=== PATIENT | male | born 1955 | race African-American/Black ===

== ENCOUNTER 2017-11-18 20:01 | Inpatient (IN) | payer SELFPAY ==
--- NOTE | 2017-11-18 20:20 | RAD REPORT ---
EXAM DESCRIPTION: CT - Ct Stroke Brain Wo Cont - 11/18/2017 8:12 pm CLINICAL HISTORY: CVA COMPARISON: 01/14/2016 TECHNIQUE: All CT scans are performed using dose optimization technique as appropriate and may inclu de automated exposure control or mA/KV adjustment according to patient size. FINDINGS: No intracranial hemorrhage, hydrocephalus or extra-axial fluid collection.No areas of brai n edema or evidence of midline shift. The paranasal sinuses and mastoids are clear. The calvarium is intact. IMPRESSION: No acute intracranial abnormality. If there is continued clinical concern for CVA, MR i maging of the brain would be recommended. The findings were discussed with CAYETANO Mckeon on 11/18/2017 at 8:15 p.m. by telephone.
[2017-11-18 20:22] LABS: Absolute Lymphocytes (CBC) 3.8 K/uL (0.7-4.9); Absolute Monocytes 1.5 K/uL (0.1-1.3); Absolute Neutrophil 10.4 K/uL (1.8-8.0); Basophils % 1.5 % (0-1.3); Eosinophils % 0.5 % (0-4.4); Hematocrit 41.7 % (39.6-49.0); MCH 28.3 pg (27.0-35.0); MCV 83.1 fL (80-100); MPV 8.3 fL (7.6-11.3); Monocytes % 9.1 % (3.3-12.3); RBC Red Blood Cell Count 5.01 M/uL (4.33-5.43)
[2017-11-18 20:25] LABS: Protime INR 1.03
--- NOTE | 2017-11-18 20:33 | RAD REPORT ---
EXAM DESCRIPTION: RAD - Chest Single View - 11/18/2017 8:25 pm CLINICAL HISTORY: CVA COMPARISON: 04/18/2017 FINDINGS: Portable technique limits examination quality. The lungs are grossly clear. The heart is normal in size. No displaced fractures. IMPRESSION: No acute intrathoracic process suspected.
[2017-11-18 20:34] LABS: Potassium 4.1 mEq/L (3.6-5.0)
[2017-11-18] MEDS ORDERED: NA CHLORIDE 0.9% 1,000 ML ONE (21:01)
[2017-11-18] MEDS ORDERED: INSULIN -REGULAR HUMAN 50 UNIT/0.5 ML ML ONE (21:01)
[2017-11-18 21:21] LABS: Urine Blood 1+ (NEG); Urine Glucose 3+ (NEG); Urine Protein 1+ (NEG); Urine pH 5.5 (5.0-7.0)
--- NOTE | 2017-11-18 21:22 | ER ---
Nurse's Notes [facility] Name: Andre Ward Age: 62 yrs Sex: Male : 1955 Arrival Date: 11/18/2017 Time: 20:05 Bed 18 Private MD: Diagnosis: Hyperglycemia, unspecified;Transient cerebral ischemic attack, unspecified Presentation: 11/18 20:04 Presenting complaint: EMS states: that they were call for possible stroke. At 1400 pt fc started to have left arm weakness and numbness along with left eye blurry vision. He has been having bilateral arm spasms for 2 weeks. On Friday started to have bilateral leg swelling and left upper abd pain. Pt is constantly thirsty and urinating frequently. Pt had been in care home x 7 weeks and was just recently released last week. Is noncompliant with his medications. Transition of care: patient was not received from another setting of care. Onset of symptoms was November 18, 2017 at 14:00. Initial Sepsis Screen: Does the patient meet any 2 criteria? No. Patient's initial sepsis screen is negative. Does the patient have a suspected source of infection? No. Patient's initial sepsis screen is negative. Care prior to arrival: Medication(s) given: ASA, 81 mg, x 4, IV initiated. 20 GA, in the left antecubital area, glucose high. 20:04 Method Of Arrival: EMS: [facility] 20:04 Acuity: KERRY 2 Triage Assessment: 20:44 General: Appears in no apparent distress. Behavior is calm, cooperative. Pain: ak1 Complains of pain in right leg and right arm and left leg and left arm. Historical: - Allergies: 20:22 PENICILLINS; fc 20:22 Lisinopril; fc - Home Meds: 20:22 None [Active]; fc - PMHx: 20:22 CAD; Hypertension; Diabetes - NIDDM; fc - PSHx: 20:22 testicular; fc - Immunization history:: Last tetanus immunization: up to date. - Social history:: Smoking status: Patient uses tobacco products, smokes one pack cigarettes per day. Patient/guardian denies using alcohol, street drugs. Screenin:20 The patient has not been NPO before screening. The patient is currently on the ak1 following diet: regular The patient is alert, able to follow commands. The patient does not exhibit slurred or garbled speech The patient is not exhibiting difficulty speaking. The patient does not exhibit difficulty understanding words. The patient is able to swallow own secretions with no drooling or need for suction. Patient tolerated one teaspoon of water. No drooling, immediate coughing, gurgling, or clearing of the throat was noted. The patient tolerated 90mL of water. No drooling, immediate coughing, gurgling, or clearing of the throat was noted. The patient passed the bedside swallow screening. Oral medications may be given as ordered. Contact Physician for further diet orders. Provider notified of bedside swallow screening results: Moiz OMNTEIRO. 20:23 Abuse screen: Denies threats or abuse. Nutritional screening: No deficits noted. fc Tuberculosis screening: No symptoms or risk factors identified. Fall Risk None identified. Assessment: 21:29 General: Appears in no apparent distress. Behavior is cooperative, anxious. Pain: ak1 Denies pain. Neuro: Level of Consciousness is awake, alert, obeys commands, Oriented to person, place, time, situation, [employer] are weak on right pt with hx TIA in 2006. Moves all extremities. Speech is normal, tongue not midline. Pupils are PERRLA, Intact. Cardiovascular: Reports chest pain. Respiratory: No deficits noted. GI: No signs and/or symptoms were reported involving the gastrointestinal system. : No signs and/or symptoms were reported regarding the genitourinary system. EENT: No signs and/or symptoms were reported regarding the EENT system. Derm: No signs and/or symptoms reported regarding the dermatologic system. Musculoskeletal: No signs and/or symptoms reported regarding the musculoskeletal system. Vital Signs: 21:05 BP 154 / 92; Pulse 95; Resp 18; Temp 98.3(TE); Pulse Ox 97% on R/A; Weight 102.06 kg ak1 (R); Height 6 ft. 1 in. (185.42 cm) (R); Pain 6/10; 22:11 BP 151 / 96; Pulse 92; Resp 18; Pulse Ox 98% on R/A; mt 23:09 BP 146 / 95; Pulse 92; Resp 18; Temp 98.3(TE); Pulse Ox 98% on R/A; Pain 0/10; ak1 21:05 Body Mass Index 29.68 (102.06 kg, 185.42 cm) ak1 NIH Stroke Scale Scores: 20:02 NIHSS Score: 3 jr8 20:04 NIHSS Score: 3 ED Course: 20:04 Patient has correct armband on for positive identification. Bed in low position. Call fc light in reach. Side rails up X2. 20:04 Maintain EMS IV. Dressing intact. Good blood return noted. Site clean \T\ dry. Gauge \T\ fc site: 20 gauge to left a/c. 20:05 Patient arrived in ED. jr8 20:05 Moiz Brush PA is PHCP. jr8 20:05 Zhou Martinez MD is Attending Physician. jr8 20:[address] via stretcher. 2 20:12 CT completed. Patient moved back from CT. 2 20:13 CT Stroke Brain w/o Contrast In Process Unspecified. EDMS 20:16 Rahel Giron, RN is Primary Nurse. ak1 20:21 Triage completed. 20:22 Arm band placed on Patient placed in an exam room, on a stretcher. 20:25 Stroke CXR 1 View In Process Unspecified. EDMS 20:25 X-ray(s) taken. 20:42 Notified Nurse Practitioner and/or Physician Board Layer of a critical lab result(s), 438 ak1 glucose. 21:20 Rogelio Israel MD is Hospitalizing Provider. jr8 21:28 No provider procedures requiring assistance completed. Patient admitted, IV remains in ak1 place. Administered Medications: 21:04 Drug: NS 0.9% 1000 ml Route: IV; Rate: 1000 ml; Site: left antecubital; ak1 23:09 Follow up: IV Status: Completed infusion ak1 21:05 Drug: Insulin Regular Human 10 units {Co-Signature: bs1 (Katerina Apodaca RN).} Route: ak1 IVP; Site: left antecubital; 22:00 Follow up: Response: No adverse reaction ak1 21:42 Not Given (Physician Discretion): Simvastatin 40 mg PO once jr8 22:00 Drug: Aspirin 162 mg Route: PO; ak1 22:11 Follow up: Response: No adverse reaction ak1 22:00 Drug: PlaVIX 75 mg Route: PO; ak1 22:12 Follow up: Response: No adverse reaction ak1 22:00 Drug: foLIC Acid 1 mg Route: PO; ak1 22:12 Follow up: Response: No adverse reaction ak1 22:11 Drug: Atorvastatin 40 mg Route: PO; ak1 22:12 Follow up: Response: No adverse reaction ak1 Point of Care Testing: Blood Glucose: 20:08 Blood Glucose: 362 mg/dL; fc Ranges: Outcome: 21:21 Decision to Hospitalize by Provider. jr8 21:28 Condition: stable ak1 21:28 Instructed on the need for admit. 11/19 00:13 Patient left the ED. ak1 00:16 Admitted to Tele accompanied by tech, family with patient, via wheelchair, room 422, ak1 with chart, Report called to [facility] NIH Stroke Scale - NIH Stroke Score Date: 11/18/2017 Time: 20:02 Total Score = 3 1a. Level of Consciousness (LOC) - 0(Alert) 1b. Level of Consciousness (LOC) (Year \T\ Age) - 0(Both) 1c. LOC Commands (Open \T\ Closes Eyes/Terminal Operations Manager) - 0(Both) 2. Best Gaze (Lateral Gaze Paresis) - 0(Normal) 3. Visual Field Loss - 0(No visual loss) 4. Facial Palsy - 0(Normal) 5a. Left Arm: Motor (10-second hold) - 1(Drift) 5b. Right Arm: Motor (10-second hold) - 0(No drift) 6a. Left Leg: Motor (5-second hold - always test supine) - 1(Drift) 6b. Right Leg: Motor (5-second hold - always test supine) - 0(No drift) 7. Limb Ataxia (finger/nose \T\ heel/palmer - test with eyes open) - 1(Present in one limb) 8. Sensory Loss (pinprick arms/legs/face) - 0(Normal) 9. Best Language: Aphasia (description/naming/reading) - 0(No aphasia) 10. Dysarthria (speech clarity - read or repeat words) - 0(Normal) 11. Extinction and Inattention (visual/tactile/auditory/spatial/personal) - 0(No abnormality) Initials: 8 NIH Stroke Scale - NIH Stroke Score Date: 11/18/2017 Time: 20:04 Total Score = 3 1a. Level of Consciousness (LOC) - 0(Alert) 1b. Level of Consciousness (LOC) (Year \T\ Age) - 0(Both) 1c. LOC Commands (Open \T\ Closes Eyes/Terminal Operations Manager) - 0(Both) 2. Best Gaze (Lateral Gaze Paresis) - 0(Normal) 3. Visual Field Loss - 0(No visual loss) 4. Facial Palsy - 0(Normal) 5a. Left Arm: Motor (10-second hold) - 1(Drift) 5b. Right Arm: Motor (10-second hold) - 0(No drift) 6a. Left Leg: Motor (5-second hold - always test supine) - 1(Drift) 6b. Right Leg: Motor (5-second hold - always test supine) - 0(No drift) 7. Limb Ataxia (finger/nose \T\ heel/palmer - test with eyes open) - 1(Present in one limb) 8. Sensory Loss (pinprick arms/legs/face) - 0(Normal) 9. Best Language: Aphasia (description/naming/reading) - 0(No aphasia) 10. Dysarthria (speech clarity - read or repeat words) - 0(Normal) 11. Extinction and Inattention (visual/tactile/auditory/spatial/personal) - 0(No abnormality) Initials: Signatures: Dispatcher [employer] Denisha Kaur RN RN fc Roszak, Josh, PA PA jr8 Rahel Giron RN RN ak1 Tami Loera [facility] Lo Lester ak Katerina Apodaca RN bs1
--- NOTE | 2017-11-18 21:22 | EDPHYS ---
Physician Documentation [facility] Name: Andre Ward Age: 62 yrs Sex: Male : 1955 Arrival Date: 11/18/2017 Time: 20:05 Bed 18 Private MD: ED Physician Zhou Martinez HPI: 11/18 20:10 This 62 yrs old Black Male presents to ER via Unassigned with complaints of weakness. jr8 20:10 The patient's problem is reported as visual difficulty, blurred vision, weakness, in jr8 the left upper extremity, in the left lower extremity. Onset: The symptoms/episode began/occurred acutely, today, at 14:00. Duration: The episode is continuous. Context: the episode(s) was witnessed, by family, occurred at home, occurred while the patient was at rest. The symptoms are alleviated by nothing. The symptoms are aggravated by nothing. Associated signs and symptoms: The patient has no apparent associated signs or symptoms. Severity of symptoms: At their worst the symptoms were moderate in the emergency department the symptoms are unchanged. Patient's baseline: Neuro: alert and fully oriented, Motor: no deficits, Ambulation: walks without assistance, Speech: normal. The patient has experienced a previous episode. The patient has not recently seen a physician. Patient per EMS is a non compliant diabetic and HTN patient. Has been having frequent thirst and urinary complaints for some time along with headache. Called EMS today after he started to have left sided weakness that began at 2 pm today and has since been progressively worse. Stated that he has had tremor in left arm for the past couple of weeks . Historical: - Allergies: 20:22 PENICILLINS; fc 20:22 Lisinopril; fc - Home Meds: 20:22 None [Active]; fc - PMHx: 20:22 CAD; Hypertension; Diabetes - NIDDM; fc - PSHx: 20:22 testicular; fc - Immunization history:: Last tetanus immunization: up to date. - Social history:: Smoking status: Patient uses tobacco products, smokes one pack cigarettes per day. Patient/guardian denies using alcohol, street drugs. ROS: 20:10 Eyes: Negative for injury, pain, redness, and discharge, ENT: Negative for injury, jr8 pain, and discharge, Neck: Negative for injury, pain, and swelling, Cardiovascular: Negative for chest pain, palpitations, and edema, Respiratory: Negative for shortness of breath, cough, wheezing, and pleuritic chest pain, Abdomen/GI: Negative for abdominal pain, nausea, vomiting, diarrhea, and constipation, Back: Negative for injury and pain, MS/Extremity: Negative for injury and deformity, Skin: Negative for injury, rash, and discoloration. 20:10 Neuro: Positive for headache, visual changes, weakness. 20:10 Endocrine: Positive for polydipsia, polyuria. Exam: 20:02 Head/Face: Normocephalic, atraumatic. Eyes: Pupils equal round and reactive to light, jr8 extra-ocular motions intact. Lids and lashes normal. Conjunctiva and sclera are non-icteric and not injected. Cornea within normal limits. Periorbital areas with no swelling, redness, or edema. ENT: Nares patent. No nasal discharge, no septal abnormalities noted. Tympanic membranes are normal and external auditory canals are clear. Oropharynx with no redness, swelling, or masses, exudates, or evidence of obstruction, uvula midline. Mucous membranes moist. Neck: Trachea midline, no thyromegaly or masses palpated, and no cervical lymphadenopathy. Supple, full range of motion without nuchal rigidity, or vertebral point tenderness. No Meningismus. Cardiovascular: Regular rate and rhythm with a normal S1 and S2. No gallops, murmurs, or rubs. Normal PMI, no JVD. No pulse deficits. Respiratory: Lungs have equal breath sounds bilaterally, clear to auscultation and percussion. No rales, rhonchi or wheezes noted. No increased work of breathing, no retractions or nasal flaring. Abdomen/GI: Soft with mild LUQ tenderness, with normal bowel sounds. No distension or tympany. No guarding or rebound. No evidence of tenderness throughout. Back: No spinal tenderness. No costovertebral tenderness. Full range of motion. Skin: Warm, dry with normal turgor. Normal color with no rashes, no lesions, and no evidence of cellulitis. MS/ Extremity: Pulses equal, no cyanosis. Neurovascular intact. Full, normal range of motion. 20:02 Neuro: Orientation: to person, place, time \T\ situation. Mentation: is normal, Memory: is normal, immediate memory is intact, recent memory is intact, remote memory is intact, Cranial nerves: CN I not tested, CN II- XII are normal as tested, visual [place] are intact. extraocular movements are intact, Facial palsy and sensory deficits are absent. Nystagmus is absent. Speech is clear and appropriate. Tongue deviates to left. Cerebellar function: dysmetria is noted on the left, Motor: moves all fours, strength is 5/5 in the right arm and right leg, strength is 4/5 in the left arm and left leg, Sensation: no obvious gross deficits, Gait: not tested. seizure activity, is not displayed by the patient, Abnormal movements: resting tremor, is located in the left arm. 21:21 Radiologist reports: no acute findings [facility] Vital Signs: 21:05 BP 154 / 92; Pulse 95; Resp 18; Temp 98.3(TE); Pulse Ox 97% on R/A; Weight 102.06 kg ak1 (R); Height 6 ft. 1 in. (185.42 cm) (R); Pain 6/10; 22:11 BP 151 / 96; Pulse 92; Resp 18; Pulse Ox 98% on R/A; mt 23:09 BP 146 / 95; Pulse 92; Resp 18; Temp 98.3(TE); Pulse Ox 98% on R/A; Pain 0/10; ak1 21:05 Body Mass Index 29.68 (102.06 kg, 185.42 cm) ak1 NIH Stroke Scale Scores: 20:02 NIHSS Score: 3 jr8 20:04 NIHSS Score: 3 fc MDM: 20:05 Patient medically screened. [facility] 21:19 Data reviewed: vital signs, nurses notes, lab test result(s), EKG, radiologic studies, [facility] CT scan, plain films, and as a result, I will admit patient. Data interpreted: Pulse oximetry: on room air is 97 %. Interpretation: normal. Counseling: I had a detailed discussion with the patient and/or guardian regarding: the historical points, exam findings, and any diagnostic results supporting the discharge/admit diagnosis, lab results, radiology results, the need for further work-up and treatment in the hospital. Physician consultation: Rogelio Israel MD was called at 21:20, was contacted at 21:20, regarding admission, to the telemetry unit. consult, patient's condition, and will see patient. 21:41 ED course: Patients tongue deviation and weakness seems to have improved upon [facility] reexamination . 11/18 20:06 Order name: Troponin (emerg Dept Use Only); Complete Time: 20:54 [facility] 11/18 20:06 Order name: CPK; Complete Time: 20:54 [facility] 11/18 20:06 Order name: Basic Metabolic Panel; Complete Time: 20:54 [facility] 11/18 20:06 Order name: CBC with Diff; Complete Time: 20:33 [facility] 11/18 20:06 Order name: Protime (+inr); Complete Time: 20:33 [facility] 11/18 20:06 Order name: Ptt, Activated; Complete Time: 20:33 [facility] 11/18 20:06 Order name: Urine Microscopic Only; Complete Time: 21:41 [facility] 11/18 20:54 Order name: Urine Dipstick--Ancillary (enter results); Complete Time: 21:21 [facility] 11/18 21:48 Order name: Hemoglobin A1C [facility] 11/18 21:48 Order name: Lipid Profile [facility] 11/18 21:48 Order name: CBC with Automated Diff [facility] 11/18 21:48 Order name: CBC with Automated Diff [facility] 11/18 21:48 Order name: Comprehensive Metabolic Panel [facility] 11/18 21:48 Order name: Comprehensive Metabolic Panel [facility] 11/18 20:06 Order name: CT Stroke Brain w/o Contrast; Complete Time: 20:33 [facility] 11/18 20:06 Order name: Stroke CXR 1 View; Complete Time: 20:33 [facility] 11/18 20:06 Order name: EKG; Complete Time: 20:06 [facility] 11/18 21:38 Order name: CONS Physician Consult [facility] 11/18 21:48 Order name: CONS Pharmacy Consult [facility] 11/18 21:48 Order name: Carotid Artery Bilateral [facility] 11/18 21:48 Order name: Carotid Artery Bilateral [facility] 11/18 21:48 Order name: Echo with Doppler [facility] 11/18 21:48 Order name: Echo with Doppler [facility] 11/18 20:06 Order name: Accucheck; Complete Time: 20:17 [facility] 11/18 20:06 Order name: Cardiac monitoring; Complete Time: 20:17 [facility] 11/18 20:06 Order name: EKG - Nurse/Tech; Complete Time: 20:22 [facility] 11/18 20:06 Order name: IV Saline Lock; Complete Time: 20:11/18 20:06 Order name: Labs collected and sent; Complete Time: 20:11/18 20:06 Order name: NPO; Complete Time: 20:11/18 20:06 Order name: O2 Per Protocol; Complete Time: 20:11/18 20:06 Order name: O2 Sat Monitoring; Complete Time: 20:11/18 20:06 Order name: Stroke Swallow Screen; Complete Time: 20:11/18 20:06 Order name: Urine Dipstick-Ancillary (obtain specimen); Complete Time: 20:54 11/18 21:48 Order name: Heart Healthy EDMS Administered Medications: 21:04 Drug: NS 0.9% 1000 ml Route: IV; Rate: 1000 ml; Site: left antecubital; ak1 23:09 Follow up: IV Status: Completed infusion ak1 21:05 Drug: Insulin Regular Human 10 units {Co-Signature: bs1 (Katerina Apodaca RN).} Route: ak1 IVP; Site: left antecubital; 22:00 Follow up: Response: No adverse reaction ak1 21:42 Not Given (Physician Discretion): Simvastatin 40 mg PO once 22:00 Drug: Aspirin 162 mg Route: PO; ak1 22:11 Follow up: Response: No adverse reaction ak1 22:00 Drug: PlaVIX 75 mg Route: PO; ak1 22:12 Follow up: Response: No adverse reaction ak1 22:00 Drug: foLIC Acid 1 mg Route: PO; ak1 22:12 Follow up: Response: No adverse reaction ak1 22:11 Drug: Atorvastatin 40 mg Route: PO; ak1 22:12 Follow up: Response: No adverse reaction ak1 Point of Care Testing: Blood Glucose: 20:08 Blood Glucose: 362 mg/dL; fc Ranges: Critical Glucose Levels:Adult <50 mg/dl or >400 mg/dl <40 mg/dl or >180 mg/dl Disposition: 11/19 01:41 Co-signature as Attending Physician, Zhou Martinez MD. pkl Disposition: 11/18/17 21:21 Hospitalization ordered by Rogelio Israel for Inpatient Admission. Preliminary diagnosis are Hyperglycemia, unspecified, Transient cerebral ischemic attack, unspecified. - Bed requested for Telemetry/MedSurg (Inpatient). - Status is Inpatient Admission. ak1 - Condition is Stable. - Problem is new. - Symptoms have improved. UTI on Admission? No NIH Stroke Scale - NIH Stroke Score Date: 11/18/2017 Time: 20:02 Total Score = 3 1a. Level of Consciousness (LOC) - 0(Alert) 1b. Level of Consciousness (LOC) (Year \T\ Age) - 0(Both) 1c. LOC Commands (Open \T\ Closes Eyes/Perioperative Nurse) - 0(Both) 2. Best Gaze (Lateral Gaze Paresis) - 0(Normal) 3. Visual Field Loss - 0(No visual loss) 4. Facial Palsy - 0(Normal) 5a. Left Arm: Motor (10-second hold) - 1(Drift) 5b. Right Arm: Motor (10-second hold) - 0(No drift) 6a. Left Leg: Motor (5-second hold - always test supine) - 1(Drift) 6b. Right Leg: Motor (5-second hold - always test supine) - 0(No drift) 7. Limb Ataxia (finger/nose \T\ heel/palmer - test with eyes open) - 1(Present in one limb) 8. Sensory Loss (pinprick arms/legs/face) - 0(Normal) 9. Best Language: Aphasia (description/naming/reading) - 0(No aphasia) 10. Dysarthria (speech clarity - read or repeat words) - 0(Normal) 11. Extinction and Inattention (visual/tactile/auditory/spatial/personal) - 0(No abnormality) Initials: jr8 NIH Stroke Scale - NIH Stroke Score Date: 11/18/2017 Time: 20:04 Total Score = 3 1a. Level of Consciousness (LOC) - 0(Alert) 1b. Level of Consciousness (LOC) (Year \T\ Age) - 0(Both) 1c. LOC Commands (Open \T\ Closes Eyes/Perioperative Nurse) - 0(Both) 2. Best Gaze (Lateral Gaze Paresis) - 0(Normal) 3. Visual Field Loss - 0(No visual loss) 4. Facial Palsy - 0(Normal) 5a. Left Arm: Motor (10-second hold) - 1(Drift) 5b. Right Arm: Motor (10-second hold) - 0(No drift) 6a. Left Leg: Motor (5-second hold - always test supine) - 1(Drift) 6b. Right Leg: Motor (5-second hold - always test supine) - 0(No drift) 7. Limb Ataxia (finger/nose \T\ heel/palmer - test with eyes open) - 1(Present in one limb) 8. Sensory Loss (pinprick arms/legs/face) - 0(Normal) 9. Best Language: Aphasia (description/naming/reading) - 0(No aphasia) 10. Dysarthria (speech clarity - read or repeat words) - 0(Normal) 11. Extinction and Inattention (visual/tactile/auditory/spatial/personal) - 0(No abnormality) Initials: Signatures: Dispatcher [employer] Jo Ann Augustine2 Zhou Martinez MD MD pkl Chretien, Felicia RN RN fc Moiz Brush PA PA jr8 Rahel Giron RN RN ak1 Katerina Apodaca RN bs1
[2017-11-18 21:38] LABS: Urine Bacteria NONE SEEN /HPF (NONE SEEN); Urine Culture Reflex Order NOT NEEDED; Urine RBC <5 /HPF (NONE SEEN)
[2017-11-18] MEDS ORDERED: FOLIC ACID 1 MG TABLET ONE (21:39)
[2017-11-18] MEDS ORDERED: CLOPIDOGREL 75 MG TABLET ONE (21:39)
[2017-11-18] MEDS ORDERED: ASPIRIN 81 MG CHEWABLE TABLET ONE (21:39)
[2017-11-18] MEDS ORDERED: ONDANSETRON 4 MG/2 ML VIAL IV PRN (21:44)
[2017-11-18] MEDS ORDERED: MORPHINE 2 MG/ML SYR IV PRN (21:44)
[2017-11-18] MEDS ORDERED: ACETAMINOPHEN 500 MG TAB PO PRN (21:44)
[2017-11-19] MEDS: NA CHLORIDE 0.9% 1,000 ML IV SCH ×3 (00:32→14:50)
[2017-11-19] MEDS: Morphine 2 MG/2 ML SYR IV PRN ×2 (01:41→22:39)
[2017-11-19 02:55] LABS: Urine Appearance CLEAR; Urine Bilirubin NEGATIVE (NEG); Urine Blood NEGATIVE (NEG); Urine Color YELLOW; Urine Glucose 3+ (NEG); Urine Protein TRACE (NEG); Urine Specific Gravity >=1.030 (1.005-1.030); Urine Urobilinogen 0.2 mg/dL (0.2-1.0); Urine pH 5.5 (5.0-7.0)
[2017-11-19 03:07] LABS: Urine Microscopic Reflex ORDER UMIC
[2017-11-19 04:33] LABS: Urine Bacteria <20 /HPF (NONE SEEN); Urine Culture Reflex Order NOT NEEDED; Urine RBC NONE SEEN /HPF (NONE SEEN)
[2017-11-19 04:35] LABS: Absolute Lymphocytes (CBC) 4.7 K/uL (0.7-4.9); Absolute Monocytes 1.3 K/uL (0.1-1.3); Absolute Neutrophil 8.3 K/uL (1.8-8.0); Basophils % 0.3 % (0-1.3); MCH 27.9 pg (27.0-35.0); MCV 84.8 fL (80-100); MPV 8.4 fL (7.6-11.3); Monocytes % 9.1 % (3.3-12.3)
[2017-11-19 04:46] LABS: Albumin 3.3 g/dL (3.2-5.5); Bilirubin Total 0.8 mg/dL (0.3-1.2); Potassium 4.2 mEq/L (3.6-5.0); Protein, Total 6.2 g/dL (6.0-8.3)
--- NOTE | 2017-11-19 06:32 | P.HP ---
Certification for Inpatient Patient admitted to: Inpatient With expected LOS: >2 Midnights Patient will require the following post-hospital care: None Practitioner: I am a practitioner with admitting privileges, knowledge of patient current condition, hospital course, and medical plan of care. Services: Services provided to patient in accordance with Admission requirements found in Title 42 Section 412.3 of the Code of Federal Regulations Patient History Date of Service: 11/18/17 Reason for admission: Possible TIA versus CVA History of Present Illness: Patient is a 62-year-old gentleman who has a history of hypertension diabetes. Patient's blood sugars and blood pressure are poorly controlled. Around 15 years ago patient had a stroke. Even after the stroke patient has not become more disciplined on taking his home medication. Patient takes his medications sporadically. Patient's blood sugars and blood pressure were elevated when his symptoms occurred. Patient was brought into the hospital for aggressive IV hydration. Patient was given insulin as well. Will monitor patient very closely and anticipate discharge home once blood pressure and blood sugar stable. Allergies lisinopril Allergy (Verified 11/19/17 03:40) Unknown Penicillins Allergy (Verified 11/19/17 03:40) Unknown Pe Allergy (Uncoded 01/11/16 09:12) Unknown Home Medications: Dextroamphetamine/Amphetamine [Adderall 30 mg Tablet] 30 mg PO DAILY 11/19/17 Metformin ER [Glucophage ER] 500 mg PO BID 11/19/17 - Past Medical/Surgical History Has patient received pneumonia vaccine in the past: No Diabetic: Yes -: HTN -: DM -: Right testicle removed -: Piece of metal removed from right leg - Family History Mother Medical History: Hypertension, Diabetes Notes: Alzeim[place] Father Medical History: Heart disease Notes: heart attack Brother Medical History: Hypertension, Diabetes Sister Medical History: Hypertension, Diabetes - Social History Smoking Status: Current every day smoker Alcohol use: No CD- Drugs: Yes Caffeine use: Yes Place of Residence: Home Review of Systems 10-point ROS is otherwise unremarkable Physical Examination - Vital Signs Temperature: 98 F Blood Pressure: 119/61 Pulse: 70 Respirations: 16 Pulse Ox (%): 95 - Physical Exam General: Alert, In no apparent distress, Oriented x3 HEENT: Atraumatic, PERRLA, Mucous membr. moist/pink, EOMI, Sclerae nonicteric Neck: Supple, 2+ carotid pulse no bruit, No LAD, Without JVD or thyroid abnormality Respiratory: Clear to auscultation bilaterally, Normal air movement Cardiovascular: Regular rate/rhythm, Normal S1 S2, Systolic murmur Gastrointestinal: Normal bowel sounds, Soft and benign, Non-distended, No tenderness Musculoskeletal: No clubbing, No swelling, No tenderness Integumentary: No rashes Neurological: Normal gait, Normal speech, Normal strength at 5/5 x4 extr, Normal tone, Sensation intact, Cranial nerves 3-12 intact, Normal affect Lymphatics: No axilla or inguinal lymphadenopathy - Studies Laboratory Data (last 24 hrs) 11/18/17 20:10: PT 12.2, INR 1.03, APTT 23.7 L 11/18/17 20:10: WBC 16.0 H, Hgb 14.2, Hct 41.7, Plt Count 362 11/18/17 20:10: Sodium 127 L, Potassium 4.1, BUN 18, Creatinine 1.41 H, Glucose 438 H* Assessment & Plan - Problems (Diagnosis) (1) Diabetic hyperosmolar non-ketotic state Current Visit: Yes Status: Acute (2) Type 2 diabetes mellitus Current Visit: Yes Status: Acute (3) Hypertension Current Visit: Yes Status: Acute Qualifiers: Hypertension type: essential hypertension Qualified Code(s): I10 - Essential (primary) hypertension (4) TIA (transient ischemic attack) Current Visit: Yes Status: Acute (5) Paresthesia and pain of left extremity Current Visit: Yes Status: Acute - Plan Plan: 1. MRI of the brain and C-spine 2. Anti-platelet therapy and statin therapy 3. Echo and carotid Doppler 4. Neurology consultation 5. Physical therapy evaluation 6. Bedside swallow study is okay patient will start diet 7. GI and DVT prophylaxis Discharge Plan: Home Plan to discharge in: Greater than 2 days - Advance Directives Does patient have a Living Will: No Does patient have a Durable POA for Healthcare: No - Code Status/Comfort Care Code Status Assessed: Yes Code Status: Full Code Critical Care: No Time Spent Managing PTS Care (In Minutes): 50
--- NOTE | 2017-11-19 06:54 | EKG ---
Test Date: 2017-11-18 Test Time: 20:16:33 Tie Presser: NANETTE MEASUREMENT RESULTS: Intervals: Rate: 100 OK: 146 QRSD: 76 QT: 344 QTc: 443 Wilbraham: P: 65 OK: 146 QRS: 48 T: 18 INTERPRETIVE STATEMENTS: Normal sinus rhythm Normal ECG Compared to ECG 04/18/2017 03:29:30 Atrial premature complex(es) no longer present Left ventricular hypertrophy no longer present Electronically Signed On 11-19-17 06:54:13 CDT by Andrei Victor
[2017-11-19] MEDS ORDERED: D50W 25 GM/50 ML SYRINGE IV PRN (08:06)
[2017-11-19] MEDS ORDERED: GLUCAGON 1 MG/VIAL IM PRN (08:06)
[2017-11-19] MEDS: INSULIN -REGULAR HUMAN 50 UNIT/0.5 ML ML SQ SCH ×4 (08:59→21:00)
[2017-11-19] MEDS: ASPIRIN EC 81 MG TAB PO SCH (09:00)
[2017-11-19] MEDS ORDERED: ATORVASTATIN 40 MG TAB PO SCH ×2 (09:00→21:00)
--- NOTE | 2017-11-19 09:53 | RAD REPORT ---
EXAM DESCRIPTION: LUDMILA Ureña CP - 11/19/2017 8:56 am CLINICAL HISTORY: TIA COMPARISON: None. TECHNIQUE: Real-time sonographic evaluation of both carotid systems was performed. Doppler interroga tion was performed with waveform tracing bilaterally. FINDINGS: Normal high resistance waveforms are noted in both external carotid arteries. The common c arotid arteries and internal carotid arteries show normal low resistance waveforms. No significant plaque formation is seen. Peak systolic and end diastolic velocity values and the ICA/ CCA ratios are in the non-hemodynamically significant range. Antegrade flow seen in both vertebral arteries. Velocity values and ratios were recorded and are retained in the patient's imaging records. IMPRESSION: No significant atherosclerotic changes noted. No evidence of a hemodynamically significant stenosis.
--- NOTE | 2017-11-19 12:32 | ECHO ---
HEIGHT: 6 ft 1 in WEIGHT: 220 lb 0 oz DATE OF STUDY: 11/19/[address]: Rogelio Israel MD 2-DIMENSIONAL: YES M.MODE: YES DOPPLER: YES COLOR FLOW: YES TDS: NO PORTABLE: NO DEFINITY: NO BUBBLE STUDY: NO DIAGNOSIS: TRANSIENT ISCHEMIC ATTACK CARDIAC HISTORY: CATHERIZATION: SURGERY: PROSTHETIC VALVE: PACEMAKER: MEASUREMENTS (cm) DIASTOLIC (NORMALS) SYSTOLIC (NORMALS) IVSd 1.0 (0.6-1.2) LA Diam 3.5 (1.9-4.0) LVEF 51% LVIDd 5.3 (3.5-5.7) LVIDs 3.9 (2.0-3.5) %FS 26% LVPWd 1.0 (0.6-1.2) Ao Diam 3.1 (2.0-3.7) 2 DIMENSIONAL ASSESSMENT: RIGHT ATRIUM: NORMAL LEFT ATRIUM: NORMAL RIGHT VENTRICLE: NORMAL LEFT VENTRICLE: NORMAL TRICUSPID VALVE: NORMAL MITRAL VALVE: NORMAL PULMONIC VALVE: NORMAL AORTIC VALVE: NORMAL PERICARDIAL EFFUSION: NONE AORTIC ROOT: NORMAL LEFT VENTRICULAR WALL MOTION: NORMAL DOPPLER/COLOR FLOW: NORMAL COMMENTS: NORMAL 2D ECHOCARDIOGRAM WITH DOPPLER. TECHNOLOGIST: Alo PIZARRO
[2017-11-19 14:18] LABS: A1c Component 1.14 mg/dL; Hemoglobin A1c 10.3 % (4-6.0)
--- NOTE | 2017-11-19 15:27 | P.PN ---
Subjective Date of Service: 11/19/17 Chief Complaint: Possible TIA versus CVA Pt seen and examined at bedside with RN. Chart reviewed. 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 Currently awaiting ankle bracelet removal for MRI Review of Systems 10-point ROS is otherwise unremarkable Physical Examination - Vital Signs Temperature: 97.3 F Blood Pressure: 133/63 Pulse: 61 Respirations: 18 Pulse Ox (%): 97 - Physical Exam General: Alert, In no apparent distress HEENT: Atraumatic Neck: Supple, JVD not distended Respiratory: Clear to auscultation bilaterally, Normal air movement Cardiovascular: Regular rate/rhythm, Normal S1 S2 Gastrointestinal: Normal bowel sounds, Soft and benign, Non-distended, No tenderness Musculoskeletal: No clubbing Integumentary: No rashes Neurological: Normal speech, Normal tone, Cranial nerves 3-12 intact, Abnormal gait, Abnormal strength Lymphatics: No axilla or inguinal lymphadenopathy - Studies Laboratory Data (last 24 hrs) 11/18/17 20:10: PT 12.2, INR 1.03, APTT 23.7 L 11/18/17 20:10: WBC 16.0 H, Hgb 14.2, Hct 41.7, Plt Count 362 11/18/17 20:10: Sodium 127 L, Potassium 4.1, BUN 18, Creatinine 1.41 H, Glucose 438 H* Medications List Reviewed: Yes Assessment & Plan - Problems (Diagnosis) (1) TIA (transient ischemic attack) Onset Date: 11/19/17 Current Visit: Yes Status: Acute Plan: Left sided Weakness and tingling in UE adn LE -Head CT negative -ECHO and carotid negative as well -On asa and Lipitor -PT consulted. -Awaiting MRI Qualifiers: Transient cerebral ischemia type: unspecified Qualified Code(s): G45.9 - Transient cerebral ischemic attack, unspecified (2) Hypertension Onset Date: 11/19/17 Current Visit: Yes Status: Chronic Qualifiers: Hypertension type: essential hypertension Qualified Code(s): I10 - Essential (primary) hypertension (3) Type 2 diabetes mellitus Onset Date: 11/19/17 Current Visit: Yes Status: Chronic Qualifiers: Diabetes mellitus cogeneration operator insulin use: without senior care use Diabetes mellitus complication status: without complication Qualified Code(s): E11.9 - Type 2 diabetes mellitus without complications Discharge Plan: Home Plan to discharge in: 24 Hours - Code Status/Comfort Care Code Status Assessed: Yes Critical Care: No
[2017-11-19] MEDS: ATORVASTATIN 80 MG TAB PO SCH (20:57)
--- NOTE | 2017-11-19 22:27 | RAD REPORT ---
EXAM DESCRIPTION: MRI - Brain Wo Cont - 11/19/2017 10:18 pm CLINICAL HISTORY: CVA, left-sided weakness COMPARISON: 11/18/2017, 01/14/2016, 01/02/2009 TECHNIQUE: Multi-sequence, multiplanar MR imaging of the brain was performed without contrast. FINDINGS: No intracranial hemorrhage, hydrocephalus or extra-axial fluid collections.Mild generalize d brain atrophy is present with minimal periventricular and deep white matter chronic microvascular i schemic changes. No edema or shift of midline structures. No findings to suspect brain mass. DWI is n egative for acute CVA. Midline structures are normally formed. Mastoid air cells and paranasal sinuses are clear. IMPRESSION: Negative for acute CVA or other acute intracranial abnormality.
--- NOTE | 2017-11-19 22:31 | RAD REPORT ---
EXAM DESCRIPTION: MRI - C Spine Wo Cont CLINICAL HISTORY: Radiculopathy COMPARISON: None. FINDINGS: Cervical vertebral bodies are normal in height and alignment. No suspicious marrow edema or marrow replacing process. No fracture or traumatic subluxation. The craniocervical junction is normal. C2-3 level: No significant findings. C3-4 level: Small posterior osteophytes/disc complex attenuates the anterior subarachnoid space and c ontacts the anterior cord. Central canal is narrowed to 8 mm. Uncovertebral spurring is present bilat erally, greater on the right, narrowing the exit foramina. C4-5 level: Small to moderate disc/ osteophyte complex is present attenuating the anterior subarachno id space and flattening the cord. The central canal is narrowed to 9 mm. Bilateral uncovertebral spur ring is present, greater on the right resulting in significant right-sided exit foraminal narrowing. C5-6 level: Moderate posterior disc/ osteophyte complex is present attenuating the anterior subarachn oid space and contacting the anterior cord. Central canal is narrowed to 9 mm. Both exit foramina ramez ear patent. C6-7 level: Moderate posterior disc/ osteophyte complex is present attenuating the anterior subarachn oid space, contacting and flattening the anterior cord. Central canal is narrowed to 8 mm. Uncoverteb ral spurring moderately narrows both exit foramina. C7-T1 level: No significant findings. Cervical cord is normal in size and signal. IMPRESSION: Moderate multilevel spondylosis of the cervical spine is present spanning C3-C7 as descr ibed above. The most severe levels of degenerative change are at C3-4 and C6-7.
--- NOTE | 2017-11-20 01:32 | CON ---
Date of Consultation: 11/19/2017 Reason For Consultation: Possible stroke. History Of Present Illness: A 62-year-old gentleman with hypertension, diabetes, prior stroke, and m edication noncompliance, who was in his usual state of health until yesterday; abrupt onset of left a rm weakness with some associated jerking and shaking to the arm; became concerned; came to the emerge ncy department; but too far outside the window for IV tPA. There is no clinical evidence of large ve ssel occlusions. Stroke scale in the emergency department was 3. Had some associated blurriness to the left eye. The patient is on parole currently. He has not been taking aspirin on a daily basis e lencho though he has a prior history of stroke. CT scan in the emergency department was personally revi ewed. No acute intracranial abnormality. No atrophy. Not a lot of prominent ischemic change. Ches t x-ray; clear. EKG; sinus rhythm. Since being admitted, he feels like he is a little better. Lopez tids; no stenosis. Consultation was requested. Past Medical History: As alluded to. Medications: The patient has not been taking any medications at home routinely. Allergies: LISINOPRIL AND PENICILLIN. Social History: The patient smokes. Denies alcohol. On parole. Family History: Strokes in his parents. Review of Systems: General: Slight headache. Eyes: Blurry vision. Ears, Nose, and Throat: No dysarthria. Cardiovascular: Hypertension. Pulmonary: Negative. Gastrointestinal: Negative. Genitourinary: Negative. Musculoskeletal: Arthralgias, arm pain. Neurologic: As noted. Psychiatric: Negative. Endocrine: Diabetes. Hematologic: Negative. Physical Examination: Vital Signs: Temperature 97.8, heart rate 61, respiratory rate 16, and blood pressure 113/54. General: He is a pleasant gentleman, lying in bed, in no distress. Heart: Sinus rhythm. Lungs: Clear. Abdomen: Soft. Bowel sounds are present. Neck: No carotid bruits. HEENT/Neurologic: Pupils are equal, round, and reactive. Ocular motion is full without nystagmus. Visual [place] are full to confrontation bilaterally. Facial strength and sensation are normal. Tong ue protrudes evenly. Soft palate elevates symmetrically bilaterally. Extremity strength is full. H e does have some halting giveaway weakness in bilateral upper extremities, but strength is full. The re is a drift in the left upper extremity. Sensation is decreased to vibration and light touch, left versus right. No cortical extinction. Reflexes are trace. Toes are neutral. Cerebellar examinati on demonstrates no ataxia. Pertinent Laboratory Data: Of note, the patient's blood glucose in the emergency department was 438. White count 16. White count is down to 14.7 today. Sodium 127, with the elevated glucose of 132. Currently sugar is down to 198. Creatinine 1.4 to 1.27. He is now on intensive statin therapy. LD L 56, with a cholesterol of 102. Troponins negative. CPK 390. Impression: Transient ischemic attack with possible stroke episode, possibly complicated by a brief focal motor seizure, given the description of the shaking and the highly elevated blood glucose which can cause transient neurological abnormalities like transient ischemic attack or even transient seiz ures. Plan: Continue aspirin and antihypertensives. Check thyroid. Check sedimentation rate. Check B12 level. DVT prophylaxis. Thank you for the consult. We will continue to follow with you. LILLIAM Voice ID: [id number] Report ID: [id number]
[2017-11-20] MEDS: NA CHLORIDE 0.9% 1,000 ML IV SCH ×2 (02:42→14:06)
[2017-11-20] MEDS: Morphine 2 MG/2 ML SYR IV PRN ×2 (02:47→20:41)
[2017-11-20 07:09] LABS: Thyroid Stimulating Hormone 1.24 uIU/mL (0.34-5.60)
[2017-11-20] MEDS: ASPIRIN EC 81 MG TAB PO SCH (08:12)
[2017-11-20] MEDS: INSULIN -REGULAR HUMAN 50 UNIT/0.5 ML ML SQ SCH ×4 (08:12→20:34)
[2017-11-20] MEDS ORDERED: ENOXAPARIN 40 MG/0.4 ML SQ SCH (09:00)
--- NOTE | 2017-11-20 13:03 | P.PN ---
Subjective Date of Service: 11/20/17 Chief Complaint: Possible TIA versus CVA Pt seen and examined at bedside with RN. Chart reviewed. Case D/w Neurology. Currently awaiting EEG results. MRI negative Review of Systems General: As per HPI Physical Examination - Vital Signs Temperature: 97.6 F Blood Pressure: 136/62 Pulse: 68 Respirations: 18 Pulse Ox (%): 100 - Physical Exam General: Alert, In no apparent distress HEENT: Atraumatic, PERRLA, EOMI Neck: Supple, JVD not distended Respiratory: Clear to auscultation bilaterally, Normal air movement Cardiovascular: Regular rate/rhythm, Normal S1 S2 Gastrointestinal: Normal bowel sounds, No tenderness Musculoskeletal: No tenderness Integumentary: No rashes Neurological: Normal speech, Normal tone, Normal affect Lymphatics: No axilla or inguinal lymphadenopathy - Studies Medications List Reviewed: Yes Assessment & Plan - Problems (Diagnosis) (1) TIA (transient ischemic attack) Onset Date: 11/19/17 Current Visit: Yes Status: Acute Plan: Left sided Weakness and tingling in UE adn LE -Head CT negative, MRI negative -ECHO and carotid negative as well -On asa and Lipitor -PT consulted. -Neurology consulted. -Concern for seizures -EEG pending now Qualifiers: Transient cerebral ischemia type: unspecified Qualified Code(s): G45.9 - Transient cerebral ischemic attack, unspecified (2) Hypertension Onset Date: 11/19/17 Current Visit: Yes Status: Chronic Qualifiers: Hypertension type: essential hypertension Qualified Code(s): I10 - Essential (primary) hypertension (3) Type 2 diabetes mellitus Onset Date: 11/19/17 Current Visit: Yes Status: Chronic Qualifiers: Diabetes mellitus penitentiary insulin use: without penitentiary use Diabetes mellitus complication status: without complication Qualified Code(s): E11.9 - Type 2 diabetes mellitus without complications
[2017-11-20] MEDS: ATORVASTATIN 80 MG TAB PO SCH (20:34)
--- NOTE | 2017-11-21 00:42 | PN ---
Date of Progress Note: 11/20/2017 Reason: TIA. Interval History: The patient is stable. No recurrent events. Brain MRI normal. EEG normal. No e vidence for seizure. I think patient can safely be discharged to home on aspirin and a statin. Stat in dose can probably be decreased down to 40 and then perhaps to even 20 over the next 1-2 months. T he patient is advised to check blood pressure. It is normal here now, but it should be monitored mov ing forward. Physical Examination: He is awake, alert, oriented. Pupils reactive. Ocular motions full. Mckeon full. Strength full. He still has some halting giveaway type of weakness, bilateral upper extremity. Sensation decreased distally. Reflexes suppressed. Gait normal. Pertinent Laboratory Data: Sedimentation rate, B12, thyroid normal. EEG and MRI as noted. Impression: Transient ischemic attack. Plan: If stable, would be discharged on aspirin and statin. Thank you for the consult. LILLIAM Voice ID: [id number] Report ID: [id number]
[2017-11-21] MEDS: NA CHLORIDE 0.9% 1,000 ML IV SCH (02:53)
[2017-11-21] MEDS: INSULIN -REGULAR HUMAN 50 UNIT/0.5 ML ML SQ SCH (08:03)
[2017-11-21] MEDS: ASPIRIN EC 81 MG TAB PO SCH (08:03)
--- NOTE | 2017-11-21 13:42 | EEG ---
CHART: [id number] TEST ID#: [id number] DATE OF STUDY: 11/20/2017 THE EEG WAS RECORDED PORTABLE IN THE PATIENT'S ROOM ON A 17 CHANNEL MACHINE. ELECTRODES WERE APPLIED IN THE USUAL MANNER USING THE INTERNATIONAL 10-20 SYSTEM. THE WAKING BACKGROUND RHYTHM IN THIS RECORD CONSISTS OF VERY WELL DEVELOPED AND WELL ORGANIZED WAVES OF 10 HZ., MAXIMAL IN THE POSTERIOR HEAD REGIONS WHICH ATTENUATE NORMALLY WITH EYE OPENING. IN DROWSINESS THE BACKGROUND DROPS TO 9 HZ. THERE ARE NO FOCAL OR LATERALIZING FEATURES. NO EPILEPTIFORM ACTIVITY APPEARS. SLEEP OCCURRED NATURALLY. NORMAL SLEEP PATTERNS ARE PRESENT. HYPERVENTILATION WAS NOT PERFORMED. PHOTIC STIMULATION PRODUCED FAIR DRIVING BILATERALLY. IMPRESSION: NORMAL EEG FOR THE AGE OF THE PATIENT IN [place], DROWSINESS AND SLEEP.
--- NOTE | 2017-11-21 14:23 | P.DS ---
Admission Date: 11/18/17 Discharge Date: 11/21/17 Disposition: ROUTINE DISCHARGE Discharge Condition: GOOD Reason for Admission: Possible TIA versus CVA Consultations: Neurology Procedures: None - Problems (1) TIA (transient ischemic attack) Onset Date: 11/19/17 Status: Acute Qualifiers: Transient cerebral ischemia type: unspecified Qualified Code(s): G45.9 - Transient cerebral ischemic attack, unspecified (2) Hypertension Onset Date: 11/19/17 Status: Chronic Qualifiers: Hypertension type: essential hypertension Qualified Code(s): I10 - Essential (primary) hypertension (3) Type 2 diabetes mellitus Onset Date: 11/19/17 Status: Chronic Qualifiers: Diabetes mellitus terminal worker insulin use: without terminal worker use Diabetes mellitus complication status: without complication Qualified Code(s): E11.9 - Type 2 diabetes mellitus without complications Brief History of Present Illness: Patient is a 62-year-old gentleman who has a history of hypertension diabetes. Patient's blood sugars and blood pressure are poorly controlled. Around 15 years ago patient had a stroke. Even after the stroke patient has not become more disciplined on taking his home medication. Patient takes his medications sporadically. Patient's blood sugars and blood pressure were elevated when his symptoms occurred. Patient was brought into the hospital for aggressive IV hydration. Patient was given insulin as well. Will monitor patient very closely and anticipate discharge home once blood pressure and blood sugar stable. Hospital Course: Overall during the hospital stay patient remained stable The patient was initially admitted to the hospital for possible TIA after having left-sided weakness along with left-sided facial droop. Head CT here in the hospital was negative, MRI here in the hospital was negative as well. Patient was started on aspirin and atorvastatin here in the hospital. Neurology was consulted who recommended the patient get an EEG done. EEG was negative for any acute abnormalities. Patient had an ultrasound of the carotids done which was also negative for any acute abnormality. Patient had an echocardiography done here in the hospital which was within normal limits. Patient worked with physical therapy and then was discharged home under stable condition. Patient was to follow up with his primary care doctor and neurology outpatient about 1-2 weeks. Most likely patient's symptoms were associated with elevated blood sugar levels in this patient was asked to control his diabetes appropriately. The patient was given prescriptions for aspirin and atorvastatin. Vital Signs/Physical Exam: Temp Pulse Resp BP Pulse Ox 98.4 F 63 16 127/64 96 11/21/17 08:00 11/21/17 08:00 11/21/17 08:00 11/21/17 08:00 11/21/17 08:00 General: Alert, In no apparent distress HEENT: Atraumatic, PERRLA, EOMI Neck: Supple, JVD not distended Respiratory: Clear to auscultation bilaterally, Normal air movement Cardiovascular: Regular rate/rhythm, Normal S1 S2 Gastrointestinal: Normal bowel sounds, No tenderness Musculoskeletal: No tenderness Integumentary: No rashes Neurological: Normal speech, Normal tone, Normal affect Lymphatics: No axilla or inguinal lymphadenopathy Laboratory Data at Discharge: WBC 14.7 K/uL (4.3-10.9) H 11/19/17 04:17 Hgb 12.8 g/dL (13.6-17.9) L 11/19/17 04:17 Hct 39.0 % (39.6-49.0) L 11/19/17 04:17 Plt Count 341 K/uL (152-406) 11/19/17 04:17 PT 12.2 SECONDS (9.5-12.5) 11/18/17 20:10 INR 1.03 11/18/17 20:10 APTT 23.7 SECONDS (24.3-36.9) L 11/18/17 20:10 Sodium 132 mEq/L (135-145) L 11/19/17 04:17 Potassium 4.2 mEq/L (3.6-5.0) 11/19/17 04:17 BUN 15 mg/dL (6-20) 11/19/17 04:17 Creatinine 1.27 mg/dL (0.61-1.24) H 11/19/17 04:17 Glucose 392 mg/dL (65-120) H 11/19/17 04:17 Total Bilirubin 0.8 mg/dL (0.3-1.2) 11/19/17 04:17 AST 23 IU/L (10-42) 11/19/17 04:17 ALT 21 IU/L (10-60) 11/19/17 04:17 Alkaline Phosphatase 69 IU/L (42-121) 11/19/17 04:17 Triglycerides Cancelled 11/19/17 06:00 Cholesterol Cancelled 11/19/17 06:00 HDL Cholesterol Cancelled 11/19/17 06:00 Cholesterol/HDL Ratio Cancelled 11/19/17 06:00 Home Medications: Dextroamphetamine/Amphetamine [Adderall 30 mg Tablet] 30 mg PO DAILY 11/19/17 Metformin ER [Glucophage ER] 500 mg PO BID 11/19/17 Aspirin [Aspirin EC 81 MG] 162 mg PO DAILY #30 tablet. 11/20/17 Atorvastatin Calcium [Lipitor] 80 mg PO BEDTIME #30 tab 11/20/17 Glyburide 5 mg PO DAILY #30 tablet 11/20/17 New Medications: Aspirin [Aspirin EC 81 MG] 162 mg PO DAILY #30 tablet. Atorvastatin Calcium [Lipitor] 80 mg PO BEDTIME #30 tab Glyburide 5 mg PO DAILY #30 tablet Patient Discharge Instructions: OK TO DC IV AND DC HOME. FOLLOW-UP WITH PCP IN 1-2 WEEKS. FOLLOW-UP WITH NEUROLOGY IN 1-2 WEEKS. CALL ME AT [phone] IF ANY QUESTIONS REGARDING HOSPITAL STAY Diet: ADA Activity: Fall precautions Followup: Wilton Blair MD [ACTIVE - CAN ADMIT] - 1-2 Weeks (CALL TO SCHEDULE AN APPOINTMENT)
== END 2017-11-21 09:07 | disposition home or self-care (01) | DRG 69 ==
LOC: ER 20:01 → ERHOLD 21:54 → 4TH 23:25
PROVIDERS: ADMIT Hospitalist; ATTEND Family Medicine
DX: G45.9 Transient cerebral ischemic attack, unspecified (principal); E11.00 Type 2 diabetes mellitus with hyperosmolarity without nonketotic hyperglycemic-hyperosmolar coma (NKHHC); R20.2 Paresthesia of skin; R53.1 Weakness; Z91.14 Patient's other noncompliance with medication regimen; Z86.73 Personal history of transient ischemic attack (TIA), and cerebral infarction without residual deficits; Z90.79 Acquired absence of other genital organ(s)
CPT/HCPCS: 36415; 70450; 70551; 71045; 72141; 80048; 80053; 80061; 81003; 81015; 82550; 82607; 82962; 83036; 84443; 84484; 85025; 85610; 85652; 85730; 93005; 93306; 93880; 95819; 96361; 96374; 97163; 99285; J1650; J2270; J7030

== ENCOUNTER 2018-03-17 15:16 | Emergency (ER) | payer SELFPAY ==
[2018-03-17] MEDS ORDERED: ONDANSETRON 4 MG/2 ML VIAL ONE (15:44)
[2018-03-17] MEDS ORDERED: NA CHLORIDE 0.9% 1,000 ML ONE ×3 (15:44→17:36)
[2018-03-17 15:53] LABS: Absolute Lymphocytes (CBC) 2.4 K/uL (0.7-4.9); Absolute Monocytes 0.5 K/uL (0.1-1.3); Absolute Neutrophil 7.8 K/uL (1.8-8.0); Eosinophils % 0.7 % (0-4.4); Hematocrit 45.5 % (39.6-49.0); Lymphocytes % 22.1 % (15.3-44.8); MCH 28.4 pg (27.0-35.0); MPV 9.1 fL (7.6-11.3); Monocytes % 4.4 % (3.3-12.3); RBC Red Blood Cell Count 5.22 M/uL (4.33-5.43)
[2018-03-17 16:14] LABS: Urine Bacteria NONE SEEN /HPF (NONE SEEN); Urine RBC NONE SEEN /HPF (NONE SEEN)
[2018-03-17 16:15] LABS: Urine Culture Reflex Order NOT NEEDED
[2018-03-17 16:18] LABS: ALT/SGPT 20 U/L (12-78); AST/SGOT 12 U/L (15-37); Albumin 2.8 g/dL (3.4-5.0); Alkaline Phosphatase 81 U/L (45-117); BUN Blood Urea Nitrogen 15 mg/dL (7-18); Bicarbonate 28 mmol/L (21-32); Bilirubin Direct 0.2 mg/dL (0-0.2); Bilirubin Total 0.7 mg/dL (0.2-1.0); Lipase 241 U/L (73-393); Potassium 4.5 mmol/L (3.5-5.1); Protein, Total 6.3 g/dL (6.4-8.2); Sodium Level 126 mmol/L (136-145)
[2018-03-17 16:19] LABS: Glucose Level 825 mg/dL (74-106)
[2018-03-17] MEDS ORDERED: INSULIN -REGULAR HUMAN 50 UNIT/0.5 ML ML ONE (16:45)
--- NOTE | 2018-03-17 16:56 | RAD REPORT ---
EXAM DESCRIPTION: CT - Abdomen Pelvis Wo Contrast - 03/17/2018 4:34 pm CLINICAL HISTORY: Abdominal pain. ABD PAIN COMPARISON: Abdomen Pelvis W Contrast dated 01/11/2016 TECHNIQUE: CT imaging of the abdomen and pelvis was performed without contrast. Solid organ, bowel a nd vascular assessment is limited due to lack of IV and oral contrast. All CT scans are performed using dose optimization technique as appropriate and may include automated exposure control or mA/KV adjustment according to patient size. FINDINGS: The lower lung [place] are clear. The liver, spleen, pancreas, adrenal glands and kidneys are within normal limits for a limited non-co ntrast examination. No bowel obstruction, free air, free fluid or abscess. Prominent fecal retention in the colon. The ap pendix is normal. Small fat containing umbilical hernia. The osseous structures are within normal limits. IMPRESSION: No acute intra-abdominal or pelvic findings. Prominent fecal retention seen in the colon . A limited non-contrast examination was performed as detailed.
--- NOTE | 2018-03-17 18:01 | ER ---
Nurse's Notes [facility] Name: Andre Ward Age: 62 yrs Sex: Male : 1955 Arrival Date: 03/17/2018 Time: 15:17 Bed 15 Private MD: Diagnosis: Hyperglycemia, unspecified Presentation: 03/17 15:15 Presenting complaint: EMS states: nausea, polydipsia, polyuria, weight loss of 72 lbs cc3 in 2 weeks. Transition of care: patient was not received from another setting of care. Onset of symptoms was March 03, 2018. Risk Assessment: Do you want to hurt yourself or someone else? Patient reports no desire to harm self or others. Initial Sepsis Screen: Does the patient meet any 2 criteria? No. Patient's initial sepsis screen is negative. Does the patient have a suspected source of infection? No. Patient's initial sepsis screen is negative. Note patient's friend stated that the patient's been having his presented complaints since 6 weeks. 15:15 Method Of Arrival: EMS: [facility] cc3 15:15 Acuity: KERRY 3 cc3 15:15 Care prior to arrival: None. cc3 Triage Assessment: 15:15 General: Appears in no apparent distress. uncomfortable, Behavior is calm, cooperative, cc3 appropriate for age. Pain: Denies pain. 15:15 EENT: No signs and/or symptoms were reported regarding the EENT system. cc3 15:15 Neuro: Level of Consciousness is awake, alert, obeys commands, Oriented to person, cc3 place, time, situation, Appropriate for age. Cardiovascular: Denies chest pain. Respiratory: Airway is patent Respiratory effort is even, unlabored, Respiratory pattern is regular, symmetrical. GI: No signs and/or symptoms were reported involving the gastrointestinal system. : Reports urinary frequency, since 6 weeks. Derm: No signs and/or symptoms reported regarding the dermatologic system. Musculoskeletal: No signs and/or symptoms reported regarding the musculoskeletal system. Historical: - Allergies: 15:15 Lisinopril; cc3 15:15 PENICILLINS; cc3 - PMHx: 15:15 CAD; Diabetes - NIDDM; Hypertension; TIA; cc3 - PSHx: 15:15 None; cc3 - Immunization history:: Adult Immunizations up to date. - Social history:: Smoking status: Patient uses tobacco products, smokes one pack cigarettes per day. - Ebola Screening: : Patient denies travel to an Ebola-affected area in the 21 days before illness onset No symptoms or risks identified at this time. Screenin:15 Abuse screen: Denies threats or abuse. Denies injuries from another. Nutritional cc3 screening: No deficits noted. Tuberculosis screening: No symptoms or risk factors identified. Fall Risk None identified. Assessment: 15:15 General: Appears in no apparent distress. comfortable, Behavior is calm, cooperative, cc3 appropriate for age. Pain: Denies pain. Neuro: Level of Consciousness is awake, alert, obeys commands, Oriented to person, place, time, situation, Appropriate for age. Cardiovascular: Denies chest pain, Capillary refill < 3 seconds is brisk in bilateral. Respiratory: Airway is patent Respiratory effort is even, unlabored, Respiratory pattern is regular, symmetrical. GI: Abdomen is flat, round non-distended. : Reports urinary frequency, since 6 weeks. EENT: No signs and/or symptoms were reported regarding the EENT system. Derm: No signs and/or symptoms reported regarding the dermatologic system. Musculoskeletal: No signs and/or symptoms reported regarding the musculoskeletal system. 16:19 Reassessment: Dr. Herbert notified of critical lab value, glucose 825. ss 16:55 Reassessment: Patient and/or family updated on plan of care and expected duration. Pain cc3 level reassessed. Patient is alert, oriented x 3, equal unlabored respirations, skin warm/dry/pink. family in room;. 17:30 Reassessment: Patient and/or family updated on plan of care and expected duration. Pain hj level reassessed. Patient is alert, oriented x 3, equal unlabored respirations, skin warm/dry/pink. awaiting room placement;. 18:13 Reassessment: in room; repeat BMP sent;. hj 19:20 Reassessment: DC instructions given to patient. Patient agree to follow up with Dr tali Portillo. Patient agree with the POC. Patient had no questions at this moment. Vital Signs: 15:22 BP 136 / 69; Pulse 61; Resp 18; Temp 97.7(O); Pulse Ox 98% on R/A; Weight 72.57 kg; cc3 Height 5 ft. 8 in. (172.72 cm); Pain 0/10; 16:30 BP 138 / 70; Pulse 65; Resp 18; Pulse Ox 100% on R/A; hj 17:30 BP 135 / 66; Pulse 64; Resp 18; Pulse Ox 100% on R/A; hj 18:15 BP 134 / 65; Pulse 63; Resp 18; Pulse Ox 100% on R/A; hj 18:33 BP 135 / 67; Pulse 65; Resp 18; Pulse Ox 100% on R/A; cc3 19:20 BP 132 / 68; Pulse 64; Resp 16; Pulse Ox 98% on R/A; Pain 0/10; ao 15:22 Body Mass Index 24.33 (72.57 kg, 172.72 cm) cc3 ED Course: 15:15 Arm band placed on left wrist. cc3 15:15 Patient has correct armband on for positive identification. Placed in gown. Bed in low cc3 position. Call light in reach. Side rails up X 1. Adult w/ patient. 15:15 Maintain EMS IV. Dressing intact. Good blood return noted. Site clean \T\ dry. Gauge \T\ cc 3 site: 20 left ACV. 15:17 Patient arrived in ED. hj 15:17 Neto Herbert MD is Attending Physician. rn 15:19 Nicolás Yeboah NP is PHCP. pm1 15:21 Nicolás Moctezuma RN is Primary Nurse. hj 15:34 Triage completed. cc3 16:34 Abdomen In Process Unspecified. EDMS 17:20 Yas Portillo MD is Hospitalizing Provider. pm1 17:51 Urine Dipstick--Ancillary (enter results) Sent. ag 19:00 Report given to finance mgr CATERINA Henson. cc3 19:19 No provider procedures requiring assistance completed. IV discontinued, intact, ao bleeding controlled, No redness/swelling at site. Pressure dressing applied. Administered Medications: 15:40 Drug: NS 0.9% 1000 ml Route: IV; Rate: 1000 ml; Site: left antecubital; cc3 16:30 Follow up: IV Status: Completed infusion cc3 15:45 Drug: Zofran 4 mg Route: IVP; Site: left antecubital; cc3 15:49 Follow up: Response: No adverse reaction; Nausea is decreased cc3 16:35 Drug: Insulin Regular Human 10 units {Co-Signature: hj (Nicolás Moctezuma RN).} Route: IVP; cc3 Site: left antecubital; 17:21 Follow up: Response: No adverse reaction; Blood sugar is lowered cc3 16:35 Drug: NS 0.9% 1000 ml Route: IV; Rate: 1000 ml; Site: left antecubital; cc3 18:07 Follow up: IV Status: Completed infusion hj 17:44 Drug: NS 0.9% 1000 ml Route: IV; Rate: 125 ml/hr; Site: left antecubital; hj 18:07 Follow up: IV Status: Infusion continued hj Point of Care Testing: Blood Glucose: 15:22 Blood Glucose: 500 mg/dL; hj 17:22 Blood Glucose: 475 mg/dL; cc3 18:20 Blood Glucose: 350 mg/dL; cc3 15:22 more than 500; hj 18:[address] Portillo. cc3 Ranges: Outcome: 17:22 Decision to Hospitalize by Provider. pm1 18:50 Discharge ordered by MD. pm1 19:20 Discharged to home ambulatory. ao 19:20 Condition: stable 19:20 Discharge instructions given to patient, Demonstrated understanding of instructions, follow-up care, medications, Prescriptions given X 2. 19:23 Patient left the ED. ao Signatures: Dispatcher [employer] EDMS Neto Herbert MD MD rn Smirch, Shelby, RN RN ss Gallardo, Ana ag Joaquin, Henry, RN RN hj Ortiz, Alex, RN RN ao Marinas, Patrick, SPIRAL WINDING MACHINE HELPER SPIRAL WINDING MACHINE HELPER pm1 Faustina Quijano cc3 Nicolás lambert Corrections: (The following items were deleted from the chart) 16:36 15:15 Presenting complaint: EMS states: nausea, polydipsia, polyuria, weight loss of 72 cc3 lbs in 2 weeks. cc3 16:36 15:15 Note patient stated that he's been having his presented complaints since 2 weeks. cc3 cc3 17:53 15:15 Pain: Denies pain. cc3 cc3 17:54 15:15 Note patient's stated that the patient's been having his presented cc3 complaints since 6 weeks. cc3
--- NOTE | 2018-03-17 18:02 | EDPHYS ---
Physician Documentation [facility] Name: Andre Ward Age: 62 yrs Sex: Male : 1955 Arrival Date: 03/17/2018 Time: 15:17 Bed 15 Private MD: ED Physician Neto Herbert HPI: 03/17 15:30 This 62 yrs old Black Male presents to ER via EMS with complaints of High Blood Sugar, pm1 Nausea, weight loss, urinary frequency. 15:30 The patient or guardian reports hyperglycemia, polydipsia, polyphagia, polyuria, weight pm1 loss, that was potentially precipitated by adjusting medication dose, Patient is taking metformin 500 mg PO daily instead of 1000 mg BID in order to stretch out the amount of medications that he has. Treatment prior to arrival includes: EMS NS 500 mL . Onset: The symptoms/episode began/occurred Patient reports for the past two weeks he has felt increased thirst, hunger and excessive urination. Associated signs and symptoms: Pertinent negatives: nausea, polydipsia, polyphagia, polyuria. Current symptoms: In the emergency department the patient's symptoms are unchanged from the initial presentation. The patient has not recently seen a physician, and does not have an established primary care provider, Last physician that he saw was during his hospitalization for a TIA in October this year. Historical: - Allergies: 15:15 Lisinopril; cc3 15:15 PENICILLINS; cc3 - PMHx: 15:15 CAD; Diabetes - NIDDM; Hypertension; TIA; cc3 - PSHx: 15:15 None; cc3 - Immunization history:: Adult Immunizations up to date. - Social history:: Smoking status: Patient uses tobacco products, smokes one pack cigarettes per day. - Ebola Screening: : Patient denies travel to an Ebola-affected area in the 21 days before illness onset No symptoms or risks identified at this time. ROS: 15:30 Eyes: Negative for injury, pain, redness, and discharge, ENT: Negative for injury, pm1 pain, and discharge, Neck: Negative for injury, pain, and swelling, Cardiovascular: Negative for chest pain, palpitations, and edema. 15:30 Respiratory: Negative for shortness of breath, cough, wheezing, and pleuritic chest pain, Abdomen/GI: Negative for abdominal pain, nausea, vomiting, diarrhea, and constipation, Back: Negative for injury and pain. 15:30 MS/Extremity: Negative for injury and deformity, Skin: Negative for injury, rash, and discoloration, Neuro: Negative for headache, weakness, numbness, tingling, and seizure. 15:30 Constitutional: Positive for weight loss, Negative for fatigue, fever, poor PO intake. 15:30 : Negative for burning with urination, difficulty urinating, penile discharge. 15:30 Endocrine: Positive for polydipsia, polyphagia, polyuria, weight loss. Exam: 15:30 Constitutional: This is a well developed, well nourished patient who is awake, alert, pm1 and in no acute distress. Head/Face: Normocephalic, atraumatic. Eyes: Pupils equal round and reactive to light, extra-ocular motions intact. Lids and lashes normal. Conjunctiva and sclera are non-icteric and not injected. Cornea within normal limits. Periorbital areas with no swelling, redness, or edema. ENT: Nares patent. No nasal discharge, no septal abnormalities noted. Tympanic membranes are normal and external auditory canals are clear. Oropharynx with no redness, swelling, or masses, exudates, or evidence of obstruction, uvula midline. Mucous membranes moist. Neck: Trachea midline, no thyromegaly or masses palpated, and no cervical lymphadenopathy. Supple, full range of motion without nuchal rigidity, or vertebral point tenderness. No Meningismus. Chest/axilla: Normal chest wall appearance and motion. Nontender with no deformity. No lesions are appreciated. Cardiovascular: Regular rate and rhythm with a normal S1 and S2. No gallops, murmurs, or rubs. Normal PMI, no JVD. No pulse deficits. Respiratory: Lungs have equal breath sounds bilaterally, clear to auscultation and percussion. No rales, rhonchi or wheezes noted. No increased work of breathing, no retractions or nasal flaring. 15:30 Back: No spinal tenderness. No costovertebral tenderness. Full range of motion. Skin: Warm, dry with normal turgor. Normal color with no rashes, no lesions, and no evidence of cellulitis. MS/ Extremity: Pulses equal, no cyanosis. Neurovascular intact. Full, normal range of motion. 15:30 Abdomen/GI: Inspection: abdomen appears normal, Bowel sounds: normal, Palpation: soft, mild abdominal tenderness, in the right side of suprapubic area, mass, is not appreciated, rebound tenderness, is not appreciated. 15:30 Neuro: Orientation: is normal, Mentation: is normal, Motor: moves all fours. Vital Signs: 15:22 BP 136 / 69; Pulse 61; Resp 18; Temp 97.7(O); Pulse Ox 98% on R/A; Weight 72.57 kg; cc3 Height 5 ft. 8 in. (172.72 cm); Pain 0/10; 16:30 BP 138 / 70; Pulse 65; Resp 18; Pulse Ox 100% on R/A; hj 17:30 BP 135 / 66; Pulse 64; Resp 18; Pulse Ox 100% on R/A; hj 18:15 BP 134 / 65; Pulse 63; Resp 18; Pulse Ox 100% on R/A; hj 18:33 BP 135 / 67; Pulse 65; Resp 18; Pulse Ox 100% on R/A; cc3 19:20 BP 132 / 68; Pulse 64; Resp 16; Pulse Ox 98% on R/A; Pain 0/10; ao 15:22 Body Mass Index 24.33 (72.57 kg, 172.72 cm) cc3 MDM: 15:17 Patient medically screened. rn 17:14 Data reviewed: vital signs. Data interpreted: Pulse oximetry: on room air is 98 %. pm1 Interpretation: normal. Physician consultation: Yas Portillo MD was called at 17:14, was contacted at 17:14, regarding admission, patient's condition, and will see patient in ED, would like further tests performed, Repeat BMP after 2L NS infused.. 18:35 Physician consultation: Yas Portillo MD was contacted at 18:30, regarding patient's pm1 condition, Evaluated patient and patient can be sent home to follow up with PCP. 03/17 15:21 Order name: Basic Metabolic Panel; Complete Time: 16:25 pm1 03/17 15:21 Order name: CBC with Diff; Complete Time: 16:07 pm1 03/17 15:21 Order name: Hepatic Function; Complete Time: 16:25 pm1 03/17 15:21 Order name: Lipase; Complete Time: 16:25 pm1 03/17 15:21 Order name: Urine Microscopic Only; Complete Time: 16:25 pm1 03/17 15:21 Order name: Ketone, Serum; Complete Time: 16:25 pm1 03/17 15:21 Order name: Urine Osmolality; Complete Time: 16:37 pm1 03/17 15:25 Order name: Glucose, Ancillary Testing; Complete Time: 15:41 EDMS 03/17 15:43 Order name: Osmolality, Serum; Complete Time: 16:56 pm1 03/17 15:55 Order name: Urine Dipstick--Ancillary (enter results) 03/17 17:13 Order name: BMP: Repeat after 2L NS infused; Complete Time: 18:49 pm1 03/17 17:26 Order name: Glucose, Ancillary Testing; Complete Time: 17:45 EDMS 03/17 18:07 Order name: BMP hj 03/17 15:21 Order name: IV Saline Lock; Complete Time: 15:22 pm1 03/17 15:21 Order name: Labs collected and sent; Complete Time: 15:49 pm1 03/17 15:21 Order name: Urine Dipstick-Ancillary (obtain specimen); Complete Time: 15:46 pm1 03/17 16:29 Order name: Abdomen ; Complete Time: 17:02 EDMS 03/17 18:22 Order name: Glucose, Ancillary Testing; Complete Time: 18:49 EDMS Administered Medications: 15:40 Drug: NS 0.9% 1000 ml Route: IV; Rate: 1000 ml; Site: left antecubital; cc3 16:30 Follow up: IV Status: Completed infusion cc3 15:45 Drug: Zofran 4 mg Route: IVP; Site: left antecubital; cc3 15:49 Follow up: Response: No adverse reaction; Nausea is decreased cc3 16:35 Drug: Insulin Regular Human 10 units {Co-Signature: fausto (Nicolás Moctezuma RN).} Route: IVP; cc3 Site: left antecubital; 17:21 Follow up: Response: No adverse reaction; Blood sugar is lowered cc3 16:35 Drug: NS 0.9% 1000 ml Route: IV; Rate: 1000 ml; Site: left antecubital; cc3 18:07 Follow up: IV Status: Completed infusion 17:44 Drug: NS 0.9% 1000 ml Route: IV; Rate: 125 ml/hr; Site: left antecubital; hj 18:07 Follow up: IV Status: Infusion continued hj Point of Care Testing: Blood Glucose: 15:22 Blood Glucose: 500 mg/dL; hj 17:22 Blood Glucose: 475 mg/dL; cc3 18:20 Blood Glucose: 350 mg/dL; cc3 15:22 more than 500; hj 18:[address] Portillo. cc3 Ranges: Critical Glucose Levels:Adult <50 mg/dl or >400 mg/dl <40 mg/dl or >180 mg/dl Disposition: 03/18 06:03 Co-signature as Attending Physician, Neto Herbert MD. rn Disposition: 03/17/18 18:50 Discharged to Home. Impression: Hyperglycemia, unspecified. - Condition is Stable. - Discharge Instructions: Hyperglycemia, Blood Glucose Monitoring, Adult. - Prescriptions for Glyburide 5 mg Oral Tablet - take 1 tablet by ORAL route once daily; 20 tablet. Metformin 500 mg Oral Tablet - take 1 tablet by ORAL route every 12 hours for 10 days; 20 tablet. - Medication Reconciliation Form, Thank You Letter, Antibiotic Education, Prescription Opioid Use form. - Follow up: Emergency Department; When: As needed; Reason: Worsening of condition. Follow up: Private Physician; When: 2 - 3 days; Reason: Recheck today's complaints, Continuance of care, Re-evaluation by your physician. - Problem is new. - Symptoms have improved. Signatures: Dispatcher [employer] EDOK Neto Herbert MD MD rn Joaquin, Henry, RN RN Sixto Lan RN RN ao Marinas, Patrick, WIRE TECHNICIAN WIRE TECHNICIAN pm1 Papitoney Faustina cc3 Nicolás Moctezuma RN Corrections: (The following items were deleted from the chart) 03/17 16:29 15:45 Abdomen Pelvis W Con+CT.RAD.BRZ ordered. [facility] EDOK 18:49 17:22 Hospitalization Ordered by Yas Portillo MD for Observation. Preliminary pm1 diagnosis is Hyperglycemia, unspecified. Bed requested for Telemetry/MedSurg (observation). Status is Observation. Condition is Stable. Problem is new. Symptoms have improved. UTI on Admission? No. pm1 19:23 18:50 03/17/2018 18:50 Discharged to Home. Impression: Hyperglycemia, unspecified. ao Condition is Stable. Forms are Medication Reconciliation Form, Thank You Letter, Antibiotic Education, Prescription Opioid Use. Follow up: Emergency Department; When: As needed; Reason: Worsening of condition. Follow up: Private Physician; When: 2 - 3 days; Reason: Recheck today's complaints, Continuance of care, Re-evaluation by your physician. Problem is new. Symptoms have improved. pm1
[2018-03-17 18:42] LABS: Potassium 4.1 mmol/L (3.5-5.1)
[2018-03-17 20:11] LABS: Urine Blood TRACE (NEG); Urine Glucose 3+ (NEG); Urine Protein NEGATIVE (NEG); Urine Specific Gravity <1.005 (1.005-1.030); Urine pH 5.5 (5.0-7.0)
== END 2018-03-17 19:23 | disposition home or self-care (01) ==
LOC: ER 15:16
DX: E11.65 Type 2 diabetes mellitus with hyperglycemia (principal); I10 Essential (primary) hypertension; F17.210 Nicotine dependence, cigarettes, uncomplicated; Z88.0 Allergy status to penicillin; Z88.8 Allergy status to other drugs, medicaments and biological substances
CPT/HCPCS: 36415; 74176; 80048; 80076; 81003; 81015; 82010; 82962; 83690; 83930; 83935; 85025; 96361; 96374; 96375; 99284; J2405; J7030

== ENCOUNTER 2021-07-12 21:01 | Inpatient (IN) | payer OTHER, SELFPAY ==
--- OUTSIDE RECORDS SUMMARY | 2021-07-12 21:05 | XMS REPORT | Clinical Summary ---
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 Specimen Blood Performing Organization Address City/[facility]/ZIP Code Phon e Number [facility] CANCER Unless otherwise noted, [address] all lab tests performed by: Division of Pathology and Laboratory Medicine Ernesto Chanel (ABNORMAL) L[facility] (08/14/2020 1:23 PM APPEALS AND GENERALIST CLERK) LDH 226 (H)Comment: 135 - 225 U/L [facility] Results greater than [facility] 1651 U/L may not be reliable due to matrix effect with extended dilution as it exceeds the shipping support s recommended limit. Caution should be exercised when interpreting such values and done in conjunction with clinical context. Specimen Blood Performing Organization Address City/State/ZIP Code Phon e Number [facility] CANCER Unless otherwise noted, [address] all lab tests performed by: Division of Pathology and Laboratory Medicine Ernesto Chanel Albumin Level (08/14/2020 1:23 PM APPEALS AND GENERALIST CLERK) Pathologist Sig nature Albumin Lvl 3.7 3.5 - 5.2 gm/dL [facility] CANCER [address] Specimen Blood Performing Organization Address City/State/ZIP Code Phon e Number [facility] CANCER Unless otherwise noted, [address] all lab tests performed by: Division of Pathology and Laboratory Medicine Ernesto Chanel after 07/12/2020 Advance Directives Code Status Date Activated Date Inactivated Comments Full Code 08/14/2020 9:14 PM 08/15/2020 2:32 PM
--- OUTSIDE RECORDS SUMMARY | 2021-07-12 21:07 | XMS REPORT | Continuity of Care Document ---
:1955 Author Organization [facility] t Address [address] [place] [address] Care Team Providers Name Role Phone Black COOPER Primary Care Physician Unavailable Tony CAMACHO Attending Clinician Unavailable Evangelist CASTRO Attending Clinician Unavailable Quinn KAUFFMAN Attending Clinician Unavailable BEKAH GUTIERREZ Attending Clinician Unavailable TATA ARCHULETA Attending Clinician Unavailable ESE Attending Clinician Unavailable CAROL Attending Clinician Unavailable Black COOPER Attending Clinician Unavailable TAMERA Attending Clinician Unavailable Whitney RUCKER Attending Clinician Unavailable FRANC Attending Clinician Unavailable Rodrigo FONSECA Attending Clinician Unavailable Cindy SHEN Attending Clinician Unavailable GARETT Attending Clinician Unavailable Natividad MANJARREZ Attending Clinician Unavailable Natividad KIM Attending Clinician Unavailable Keely MUNSON Attending Clinician Unavailable Maynor RANGEL Attending Clinician Unavailable SAMM Attending Clinician Unavailable ELENA Attending Clinician Unavailable Susu BORJA Attending Clinician Unavailable Whitney YAO Attending Clinician Unavailable Clary OSCAR Attending Clinician Unavailable Natividad GATES Attending Clinician Unavailable JENELLE Attending Clinician Unavailable Black MATTHEW Attending Clinician Unavailable MANSI Attending Clinician Unavailable JAZLYN Attending Clinician Unavailable Whitney ANAYA Attending Clinician Unavailable Jocy ALVARENGA Attending Clinician Unavailable Keely NORTON Attending Clinician Unavailable CONG Attending Clinician Unavailable Evangelist CASTRO Attending Clinician Unavailable Whitney FERREIRA Attending Clinician Unavailable Susu GERMAN Attending Clinician Unavailable Keely LEONARDO Attending Clinician Unavailable Whitney ANAYA Attending Clinician Unavailable Black TAYLOR Attending Clinician Unavailable Cindy GIRON Attending Clinician Unavailable GEREMIAS Attending Clinician Unavailable Whitney FERREIRA Attending Clinician Unavailable Natividad BLAKE Attending Clinician Unavailable Mat Attending Clinician Unavailable DIANA Attending Clinician Unavailable Armando KNIGHT Attending Clinician Unavailable HUMBLE Attending Clinician Unavailable Yseenia Fritz MD Attending Clinician Humble KURTZ Attending Clinician FRANKLYN Admitting Clinician Unavailable ARMANDO Admitting Clinician Unavailable Mat Admitting Clinician Unavailable HUMBLE Admitting Clinician Unavailable Payers Payer Name Policy Type Policy Number Effective Date Expiration Date Keely corcoran MEDICARE PART A [id number] 2019 ONLY 00:00:00 MEDICARE PART A [id number] 2019 2019 00:00:00 00:00:00 Problems Condition Condition Condition Status Onset Resolution Last Treating Co mments Source Name Details Category Date Date Treatment Clinician Date Abdominal Abdominal Disease Active pain pain 08-14 Anderso 00:00: n 00 Dyspnea Dyspnea Disease Active 2020-0 18 Anderso 00:00: n 00 Nausea and Nausea and Disease Active 2020-0 M D vomiting vomiting 08-14 David o 00:00: n 00 Cough Cough Disease Active 2020-0 18 Anderso 00:00: n 00 Lung Lung Disease Active 2020-0 nodule nodule 08-14 Anderso 00:00: n 00 Back pain Back pain Disease Active 2020-0 18 Anderso 00:00: n 00 Hypertensi Hypertensi Disease Active 2020-0 M D on on 08-14 Anderso 00:00: n 00 Type 2 Type 2 Disease Active 2020-0 diabetes diabetes 08-14 David o mellitus mellitus 00:00: n 00 Allergies, Adverse Reactions, Alerts This patient has no known allergies or adverse reactions. Social History Social Habit Start Date Stop Date Quantity Comments Source Tobacco use and 2020-08-14 2020-08-14 User of smokeless Darion exposure 00:00:00 00:00:00 tobacco Sex [birth year] MD Hernandez on 00:00:00 00:00:00 Smoking Status Start Date Stop Date Source Smokes tobacco daily 2020-08-14 00:00:00 MD Lester rsallen Medications Ordered Filled Start Stop Current Ordering Indication Dosage Frequency Signature Comments Components Source Medication Medication Date Date Medication? Clinician (SIG) Name Name insulin Yes type 2 13U Inject 13 aspart 08-15 diabetes Units Anderso U-100 12:27: mellitus under the n (NOVOLOG) 36 skin twice 100 unit/mL daily. injection Before meals dilTIAZem Yes Take by (CARDIZEM 08-15 mouth. Anderso CD) 240 mg 12:27: n 24 hr 36 capsule aspirin 81 Yes 81mg Take 81 mg M D mg EC 08-15 by mouth. Anderso tablet 12:27: n 36 metoclopram Yes Nausea and 10mg Take 1 MD negrito 08-15 vomiting tablet (10 Timi so (REGLAN) 10 00:00: mg) by n mg tablet 00 mouth every 6 (six) hours. morphine Yes Neoplasm 15mg Take 1 MD (MS CONTIN) 08-15 related tablet (15 Anderso 15 mg ER 00:00: pain mg) by n tablet 00 (acute) mouth (chronic) every 12 (twelve) hours. morphine Yes Neoplasm 7.5mg Take a MD (MSIR) 15 08-15 related half Anderso mg IR 00:00: pain tablet n tablet 00 (acute) (7.5 mg) (chronic) by mouth every 4 (four) hours as needed (pain and shortness of breath). Vital Signs Vital Name Observation Time Observation Value Comments Source HEIGHT 2020-08-14 21:37:46 177.8 cm WEIGHT 2020-08-14 21:37:46 99.9 kg HEIGHT 2020-08-14 21:37:46 177.8 cm WEIGHT 2020-08-14 21:37:46 99.9 kg Systolic blood pressure 2020-08-15 17:29:29 138 mm[Hg] MD [place] Diastolic blood pressure 2020-08-15 17:29:29 77 mm[Hg] MD [place] Heart rate 2020-08-15 17:29:29 62 /min MD Capellan son Body temperature 2020-08-15 17:29:29 36.61 Rocio MD Clary castillo Respiratory rate 2020-08-15 17:29:29 18 /min MD Clary castillo Oxygen saturation in 2020-08-15 17:29:29 96 /min MD [place] Arterial blood by Pulse oximetry Body height 2020-08-15 03:37:46 177.8 cm MD Timi gomez Body weight 2020-08-15 03:37:46 99.9 kg MD Timi gomez BMI 2020-08-15 03:37:46 31.60 kg/m2 MD Timi gomez Procedures Procedure Date / Time Performed Performing Clinician [facility] e POC GLUCOSE SCREEN 2020-08-15 16:38:00 Lina Kate MD rson POC GLUCOSE SCREEN 2020-08-15 14:10:00 Lina Kate MD rson AMYLASE LEVEL 2020-08-15 07:59:00 Pillo Kevin MD LIPASE LEVEL 2020-08-15 07:59:00 Pillo Kevin MD MAGNESIUM LEVEL 2020-08-15 07:59:00 Pillo Kevin MD PHOSPHORUS LEVEL 2020-08-15 07:59:00 Pillo Kevin MD COMPLETE BLOOD COUNT W/ 2020-08-15 07:59:00 Pillo Kevin MDrsallen DIFFERENTIAL BASIC METABOLIC PANEL, CALCIUM 2020-08-15 07:59:00 Pillo Kevin MD TOTAL GLUCOSE LEVEL 2020-08-15 07:59:00 Pillo Kevin MD BLOOD UREA NITROGEN 2020-08-15 07:59:00 Pillo Kevin MD ELECTROLYTE PANEL 2020-08-15 07:59:00 Pillo Kevin MD SERUM CREATININE 2020-08-15 07:59:00 Pillo Kevin MD .GLOMERULAR FILTRATION RATE 2020-08-15 07:59:00 Pillo Kevin MD CALCIUM LEVEL TOTAL 2020-08-15 07:59:00 Pillo Kevin MD Results CBC 2020-08-15 07:59:00 Pillo Kevin MD MANUAL DIFFERENTIAL 2020-08-15 07:59:00 Pillo Kevin MD MRI CERVICAL THORACIC LUMBAR 2020-08-15 06:30:00 Pillo Kevin MD SPINE W WO CONTRAST XR FEMUR 2 VW RIGHT 2020-08-15 04:31:07 Pillo Kevin MD TROPONIN T 2020-08-15 03:50:00 Pillo Kevin MD POC GLUCOSE SCREEN 2020-08-15 03:35:00 Lina Kate MD Trevon rsallen GENERAL LABORATORY ADD ON TEST 2020-08-15 03:03:[address] CHEST PULMONARY EMBOLISM W 2020-08-15 00:27:52 Merlene Hudson MD CONTRAST CT ABDOMEN PELVIS W CONTRAST 2020-08-15 00:27:52 Merlene Hudson MD EKG, 12-LEAD (PORTABLE) 2020-08-15 00:00:00 Merlene Hudson MD URINALYSIS WITH MICROSCOPIC IF 2020-08-14 20:47:00 Isaac Hudson MD INDICATED URINALYSIS MICROSCOPIC 2020-08-14 20:47:00 Mikie Fritz MD URINE CULTURE 2020-08-14 20:47:00 Merlene Hudson MD POC VENOUS BLOOD GAS + LACTATE 2020-08-14 19:49:00 Eduarda Fritz MD AMYLASE LEVEL 2020-08-14 19:43:00 Merlene Hudson MD LIPASE LEVEL 2020-08-14 19:43:00 Merlene Hudson MD RESPIRATORY VIRAL PANEL + 2020-08-14 19:35:00 Leela Guadalupe MD COVID-19, NASOPHARYNGEAL SWAB SERUM CREATININE 2020-08-14 19:23:00 Mikie Fritz MD And erson .GLOMERULAR FILTRATION RATE 2020-08-14 19:23:00 Baltazar Fritz MD CALCIUM LEVEL TOTAL 2020-08-14 19:23:00 Mikie Fritz MD ALBUMIN LEVEL 2020-08-14 19:23:00 Mikie Fritz MD Trevon rson ALKALINE PHOSPHATASE 2020-08-14 19:23:00 Mikie Fritz MD ALANINE AMINOTRANSFERASE 2020-08-14 19:23:00 Mikie Fritz MD ASPARTATE AMINOTRANSFERASE 2020-08-14 19:23:00 Mikie Fritz MD TOTAL PROTEIN 2020-08-14 19:23:00 Mikie Fritz MD Trevon rson FRACTIONATED BILIRUBIN 2020-08-14 19:23:00 Mikie Fritz MD NT PRO BNP 2020-08-14 19:23:00 Mikie Fritz MD Trevon rson BLOODCULTURE 2020-08-14 19:23:00 Merlene Hudson MD COMPLETE BLOOD COUNT W/ 2020-08-14 19:23:00 Merlene Hudson MD DIFFERENTIAL COMPREHENSIVE METABOLIC PANEL 2020-08-14 19:23:00 Merlene Hudson MD MAGNESIUM LEVEL 2020-08-14 19:23:00 Merlene Hudson MD PHOSPHORUS LEVEL 2020-08-14 19:23:00 Merlene Hudson MD Andbravoo n LACTATE DEHYDROGENASE 2020-08-14 19:23:00 Merlene Hudson MDson CARDIAC PANEL 2020-08-14 19:23:00 Merlene Hudson MD D DIMER 2020-08-14 19:23:00 Mrelene Hudson MD Results CBC 2020-08-14 19:23:00 Mikie Fritz MD Trevon rsallen MANUAL DIFFERENTIAL 2020-08-14 19:23:00 Mikie Fritz MD GLUCOSE LEVEL 2020-08-14 19:23:00 Mikie Fritz MD Trevon rson BLOOD UREA NITROGEN 2020-08-14 19:23:00 Mikie Fritz MD ELECTROLYTE PANEL 2020-08-14 19:23:00 Mikie Fritz MD Plan of Care Planned Activity Planned Date Details Comments Source Future Scheduled Test 1960 00:00:00 COVID-19 Vaccination MD [place] (1) [code = COVID-19 Vaccination (1)] Encounters Start End Encounter Admission Attending Care Care Encounter Source Date/Time Date/Time Type Type Clinicians Facility Department ID 2021-04-19 Inpatient [facility] [id number] [place] 21:23:34 Health 2021-04-19 Inpatient [facility] [id number] [place] 00:00:00 [facility] 2021-04-19 Inpatient [facility] [id number] [facility] [place] 00:00:00 [facility] 2021-04-18 Inpatient DOUG, [facility] [id number] [place] 22:38:40 2021-04-17 Inpatient 1 DOUG, [facility] [id number] [place] 21:54:00 2018-04-27 Inpatient E [facility] [id number] [facility] W 15:11:00 2021-08-10 2021-08-10 [facility] [id number] [place] 00:00:00 00:00:00 2021-08-03 2021-08-03 [facility] [id number] [place] 00:00:00 00:00:00 [facility] 2021-07-26 2021-07-26 Outpatient [facility] [id number] [place] 00:00:00 00:00:00 [facility] 2021-07-12 2021-07-12 Outpatient DU KAUFFMAN [facility] [id number] [place] 00:00:00 00:00:00 [facility] 2021-07-03 2021-07-03 Outpatient [facility] [id number] [place] 00:00:00 00:00:00 [facility] 2021-06-29 2021-06-29 [facility] [id number] [place] 00:00:00 00:00:00 [facility] 2021-06-28 2021-06-28 [facility] [id number] [place] 00:00:00 00:00:00 [facility] 2021-06-20 2021-06-20 [facility] [id number] [place] 00:00:00 00:00:00 2021-06-11 2021-06-19 [id number] [place] 06:24:00 17:56:00 [facility] 2021-06-15 2021-06-15 [facility] [id number] [place] 00:00:00 00:00:00 [facility] 2021-06-14 2021-06-14 Outpatient [facility] [id number] [place] 00:00:00 00:00:00 [facility] 2021-06-132021-06-13 Outpatient [facility] [id number] [place] 10:28:38 10:28:38 Health 2021-06-13 2021-06-13 Outpatient GEREMIAS, [facility] [id number] [place] 09:56:27 09:56:27 [facility] 2021-06-12 2021-06-12 Outpatient MULLIGAN, [facility] [id number] [place] 06:57:35 07:53:44 [facility] 2021-06-12 2021-06-12 Outpatient MULLIGAN, [facility] [id number] [place] 06:16:14 06:16:14 [facility] 2021-06-11 2021-06-11 Emergency SERGOT, [facility] [id number] [place] 07:54:12 08:59:23 [facility] 2021-06-11 2021-06-11 Emergency SERGOT, [facility] [id number] [place] 06:41:17 07:04:33 [facility] 2021-06-11 2021-06-11 Emergency SERGOT, [facility] [id number] [place] 06:37:00 06:47:57 [facility] 2021-06-11 2021-06-11 Outpatient 1 MULLIGAN, [facility] [id number] [place] 06:24:00 06:24:00 [facility] 2021-06-08 2021-06-08 [facility] [id number] [place] 09:29:43 10:18:25 [facility] 2021-06-07 2021-06-07 Outpatient ALLISON, [facility] [id number] [place] 08:59:53 23:59:00 [facility] 2021-06-06 2021-06-06 [facility] [id number] [address] [place] [address] 09:40:31 23:59:00 [facility] 2021-06-06 2021-06-06 [facility] [id number] [place] 09:09:50 09:39:00 [facility] 2021-06-05 2021-06-05 Outpatient ALLISON, [facility] [id number] [place] 09:08:00 23:59:00 [facility] 2021-06-05 2021-06-05 Outpatient TAMERA, [facility] [id number] [place] 00:00:00 00[facility]00:[facility] 2021-06-04 2021-06-04 Outpatient ALLISON, [facility] [id number] [place] 09:27:36 23:59:00 [facility] 2021-06-01 2021-06-01 Outpatient ALLISON, [facility] [id number] [place] 08:36:55 23:59:00 [facility] 2021-06-01 2021-06-01 Outpatient [facility] [id number] [place] 06:50:10 13:25:12 Health 2021-05-31 2021-05-31 Outpatient ALLISON, [facility] [id number] [place] 10:04:04 23:59:00 [facility] 2021-05-30 2021-05-30 Outpatient ALLISON, [facility] [id number] [place] 11:18:20 23:59:00 [facility] 2021-05-30 2021-05-30 Outpatient ALLISON, [facility] [id number] [place] 10:29:50 10:59:00 [facility] 2021-05-29 2021-05-29 Outpatient BROOKLYNTTI, [facility] [id number] [place] 10:33:21 11:35:38 [facility] 2021-05-29 2021-05-29 Outpatient [facility] [id number] [place] 00:00:00 00:00:00 Health 2021-05-28 2021-05-28 [facility] [id number] [place] 11:23:25 23:59:00 [facility] 2021-05-28 2021-05-28 [facility] [id number] [place] 11:13:31 10:59:00 [facility] 2021-05-25 2021-05-25 [facility] [id number] [place] 10:20:04 23:59:00 [facility] 2021-05-25 2021-05-25 [facility] [id number] [place] 10:30:45 10:30:45 [facility] 2021-05-24 2021-05-24 [facility] [id number] [place] 09:25:30 23:59:00 [facility] 2021-05-23 2021-05-23 Outpatient COVERDALE, [facility] [id number] [place] 00:00:00 00:00:00 [facility] 2021-05-18 2021-05-18 Outpatient CASTRO, [facility] [id number] [place] 00:00:00 00:00:00 [facility] 2021-05-16 2021-05-16 Outpatient ALLISON, [facility] [id number] [place] 08:56:57 23:59:00 [facility] 2021-05-11 2021-05-11 Outpatient DOUG, [facility] [id number] [place] 12:00:42 12:54:17 2021-05-09 2021-05-09 Outpatient ALLISON, [facility] [id number] [place] 08:57:57 23:59:00 [facility] 2021-05-09 2021-05-09 Outpatient ZARIA BRUNER [facility] [id number] [place] 00:00:00 00:00:00 [facility] 2021-05-08 2021-05-08 Outpatient PHILIP, [facility] [id number] [place] 12:48:15 13:26:14 [facility] 2021-05-01 2021-05-01 [facility] [id number] [place] 11:23:18 11:27:06 [facility] 2021-05-01 2021-05-01 Outpatient MATT, [facility] [id number] [place] 10:22:47 11:16:37 [facility] 2021-05-01 2021-05-01 [facility] [id number] [place] 00:00:00 00:00:00 [facility] 2021-04-27 2021-04-27 Outpatient CASTRO, [facility] [id number] [place] 12:02:04 13:43:23 [facility] 2021-04-27 2021-04-27 Outpatient [facility] [id number] [place] 00:00:00 00:00:00 [facility] 2021-04-17 2021-04-22 Inpatient DOUG, [facility] [id number] [place] 21:54:00 15:15:00 2021-04-17 2021-04-17 Emergency [facility] [id number] [place] 17:09:00 20:28:00 [facility] 2021-04-17 2021-04-17 Emergency FONSECA, [facility] [id number] [place] 17:09:00 20:28:00 [facility] 2021-04-17 2021-04-17 Emergency AC, [facility] [id number] [place] 18:06:34 18:06:34 [facility] 2021-04-17 2021-04-17 Emergency GARETT, [facility] [id number] [place] 14:00:00 14:30:00 [facility] 2021-04-13 2021-04-13 Outpatient CASTRO, [facility] [id number] [place] 00:00:00 00:00:00 [facility] 2021-04-13 2021-04-13 Outpatient [facility] [id number] [place] 00:00:00 00:00:00 [facility] 2021-04-10 2021-04-10 Outpatient PHILIP, [facility] [id number] [place] 00:00:00 00:00:00 [facility] 2021-04-06 2021-04-06 Outpatient ALLISON, [facility] [id number] [place] 07:43:21 23:59:00 [facility] 2021-04-05 2021-04-05 Outpatient MATT, [facility] [id number] [place] 11:05:18 12:47:35 [facility] 2021-04-05 2021-04-05 Outpatient MATT, [facility] [id number] [place] 00:00:00 00:00:00 [facility] 2021-04-03 2021-04-03 Outpatient LOKI, [facility] [id number] [place] 11:38:07 15:12:20 [facility] 2021-04-03 2021-04-03 Outpatient JUDY, [facility] [id number] [place] 00:00:00 [facility] 2021-03-27 Outpatient JUDY, [facility] [id number] [place] 00:00:00 [facility]00:[facility] 2021-03-13 2021-03-13 Outpatient TAMERA, [facility] [id number] [place] 12:54:47 13:17:[facility] 2021-03-12 Outpatient [facility] [id number] [place] 08:38:54 09:54:08 [facility] 2021-03-08 2021-03-08 [facility] [id number] [place] 10:57:16 23:59:00 [facility] 2021-03-08 2021-03-08 Outpatient [facility] [id number] [place] 00:00:00 00:00:00 [facility] 2021-03-07 2021-03-07 [facility] [id number] [place] 10:54:03 23:59:00 [facility] 2021-03-07 2021-03-07 [facility] [id number] [place] 10:18:40 10:53:00 [facility] 2021-03-06 2021-03-06 [facility] [id number] [place] 08:37:43 23:59:00 [facility] 2021-03-06 2021-03-06 [facility] [id number] [place] 10:37:06 14:05:35 [facility] 2021-03-06 2021-03-06 Outpatient [facility] [id number] [place] 00:00:00 00:00:00 [facility] 2021-03-06 2021-03-06 Outpatient [facility] [id number] [place] 00:00:00 00:00:00 [facility] 2021-03-05 2021-03-05 [facility] [id number] [place] 10:51:35 23:59:00 [facility] 2021-03-05 2021-03-05 [facility] [id number] [place] 10:47:14 10:49:47 [facility] 2021-03-05 2021-03-05 Outpatient [facility] [id number] [place] 00:00:00 00:00:00 [facility] 2021-03-05 2021-03-05 Outpatient [facility] [id number] [place] 00:00:00 00:00:00 [facility] 2021-03-05 2021-03-05 Outpatient [facility] [id number] [place] 00:00:00 00:00:00 [facility] 2021-03-05 2021-03-05 Outpatient [facility] [id number] [place] 00:00:00 00:00:00 [facility] 2021-03-05 2021-03-05 [facility] [id number] [place] 00:00:00 00:00:00 [facility] 2021-03-05 2021-03-05 Outpatient [facility] [id number] [place] 00:00:00 00:00:00 [facility] 2021-03-02 2021-03-02 [facility] [id number] [place] 07:12:54 23:59:00 [facility] 2021-03-02 2021-03-02 [facility] [id number] [place] 10:48:00 13:20:12 [facility] 2021-03-02 2021-03-02 Outpatient [facility] [id number] [place] 10:31:34 10:34:35 [facility] 2021-03-02 2021-03-02 Outpatient [facility] [id number] [place] 00:00:00 00:00:00 [facility] 2021-03-02 2021-03-02 Outpatient [facility] [id number] [place] 00:00:00 00:00:00 [facility] 2021-03-02 2021-03-02 [facility] [id number] [place] 00:00:00 00:00:00 [facility] 2021-03-01 2021-03-01 [facility] [id number] [place] 10:35:53 23:59:00 [facility] 2021-03-01 2021-03-01 Outpatient [facility] [id number] [place] 00:00:00 00:00:00 [facility] 2021-03-01 2021-03-01 Outpatient [facility] [id number] [place] 00:00:00 00:00:00 [facility] 2021-02-28 2021-02-28 Outpatient [facility] [id number] [place] 11:08:45 23:59:00 [facility] 2021-02-28 2021-02-28 [facility] [id number] [place] 10:47:51 11:07:00 [facility] 2021-02-28 2021-02-28 [facility] [id number] [place] 08:29:21 09:49:26 [facility] 2021-02-28 2021-02-28 [facility] [id number] [place] 00:00:00 00:00:00 [facility] 2021-02-28 2021-02-28 Outpatient [facility] [id number] [place] 00:00:00 00:00:00 [facility] 2021-02-28 2021-02-28 Outpatient [facility] [id number] [place] 00:00:00 00:00:00 [facility] 2021-02-27 2021-02-27 Outpatient ALLISON, [facility] [id number] [place] 12:54:28 23:59:00 [facility] 2021-02-27 2021-02-27 Outpatient CLAIRE, [facility] [id number] [place] 07:39:29 10:47:37 [facility] 2021-02-27 2021-02-27 Outpatient [facility] [id number] [place] 00:00:00 00:00:00 [facility] 2021-02-27 2021-02-27 Outpatient [facility] [id number] [place] 00:00:00 00:00:00 [facility] 2021-02-27 2021-02-27 Outpatient [facility] [id number] [place] 00:00:00 00:00:00 [facility] 2021-02-26 2021-02-26 [facility] [id number] [place] 11:12:54 23:59:00 [facility] 2021-02-26 2021-02-26 Outpatient CASTRO, [facility] [id number] [place] 11:06:35 11:09:46 [facility] 2021-02-26 2021-02-26 Outpatient [facility] [id number] [place] 00:00:00 00:00:00 [facility] 2021-02-26 2021-02-26 Outpatient [facility] [id number] [place] 00:00:00 00:00:00 [facility] 2021-02-26 2021-02-26 Outpatient [facility] [id number] [place] 00:00:00 00:00:00 [facility] 2021-02-26 2021-02-26 Outpatient [facility] [id number] [place] 00:00:00 00:00:00 [facility] 2021-02-26 2021-02-26 Outpatient [facility] [id number] [place] 00:00:00 00:00:00 [facility] 2021-02-23 2021-02-23 [facility] [facility] [id number] [place] 11:09:32 23:59:00 [facility] 2021-02-23 2021-02-23 Outpatient [facility] [id number] [place] 00:00:00 00:00:00 [facility] 2021-02-23 2021-02-23 Outpatient [facility] [id number] [place] 00:00:00 00:00:00 [facility] 2021-02-22 2021-02-22 [facility] [id number] [place] 14:43:51 23:59:00 [facility] 2021-02-22 2021-02-22 Outpatient [facility] [id number] [place] 00:00:00 00:00:00 [facility] 2021-02-22 2021-02-22 Outpatient [facility] [id number] [place] 00:00:00 00:00:00 [facility] 2021-02-21 2021-02-21 [facility] [id number] [place] 11:02:54 23:59:00 [facility] 2021-02-21 2021-02-21 [facility] [id number] [place] 10:38:16 11:01:00 [facility] 2021-02-21 2021-02-21 Outpatient [facility] [id number] [place] 00:00:00 00:00:00 [facility] 2021-02-21 2021-02-21 Outpatient [facility] [id number] [place] 00:00:00 00:00:00 [facility] 2021-02-20 2021-02-20 [facility] [id number] [place] 10:14:53 23:59:00 [facility] 2021-02-20 2021-02-20 Outpatient [facility] [id number] [place] 11:08:20 11:08:20 [facility] 2021-02-20 2021-02-20 Outpatient [facility] [id number] [place] 00:00:00 00:00:00 [facility] 2021-02-20 2021-02-20 Outpatient [facility] [id number] [place] 00:00:00 00:00:00 [facility] 2021-02-19 2021-02-19 [facility]patient [facility] [id number] [place] 11:02:04 23:59:00 [facility] 2021-02-19 2021-02-19 Outpatient CASTRO, [facility] [id number] [place] 10:56:46 11:00:15 [facility] 2021-02-19 2021-02-19 Outpatient [facility] [id number] [place] 00:00:00 00:00:00 Health 2021-02-19 2021-02-19 Outpatient [facility] [id number] [place] 00:00:00 00:00:00 [facility] 2021-02-19 2021-02-19 Outpatient [facility] [id number] [place] 00:00:00 00:00:00 [facility] 2021-02-19 2021-02-19 Outpatient [facility], [facility] [id number] [place] 00:00:00 00:00:00 [facility] 2021-02-16 2021-02-16 Outpatient [facility] [id number] [place] 11:29:20 23:59:00 [facility] 2021-02-16 2021-02-16 Outpatient [facility] [id number] [place] 00:00:00 00:00:00 [facility] 2021-02-16 2021-02-16 Outpatient [facility] [id number] [place] 00:00:00 00:00:00 [facility] 2021-02-15 2021-02-15 [facility] [id number] [place] 13:59:44 23:59:00 [facility] 2021-02-15 2021-02-15 Outpatient [facility] [id number] [place] 00:00:00 00:00:00 [facility] 2021-02-15 2021-02-15 Outpatient [facility] [id number] [place] 00:00:00 00:00:00 [facility] 2021-02-14 2021-02-14 [facility] [id number] [place] 10:56:30 23:59:00 [facility] 2021-02-14 2021-02-14 Outpatient [facility] [id number] [place] 10:26:16 10:55:00 [facility] 2021-02-14 2021-02-14 Outpatient [facility] [id number] [place] 00:00:00 00:00:00 [facility] 2021-02-14 2021-02-14 Outpatient [facility] [id number] [place] 00:00:00 00:00:00 [facility] 2021-02-13 2021-02-13 [facility] [id number] [place] 09:57:20 23:59:00 [facility] 2021-02-13 2021-02-13 Outpatient ADRYANI, [facility] [id number] [place] 10:45:23 13:46:38 [facility] 2021-02-13 2021-02-13 Outpatient [facility] [id number] [place] 00:00:00 00:00:00 [facility] 2021-02-13 2021-02-13 Outpatient SAMM, [facility] [id number] [place] 00:00:00 00:00:00 [facility] 2021-02-13 2021-02-13 Outpatient [facility] [id number] [place] 00:00:00 00:00:00 [facility] 2021-02-13 2021-02-13 Outpatient [facility] [id number] [place] 00:00:00 00:00:00 [facility] 2021-02-13 2021-02-13 Outpatient PARKER, [facility] [id number] [place] 00:00:00 00:00:00 BAM Mccormick 2021-02-12 2021-02-12 [facility] [id number] [place] 10:59:52 23:59:00 [facility] 2021-02-12 2021-02-12 Outpatient [facility] [id number] [place] 12:16:22 12:20:21 [facility] 2021-02-12 2021-02-12 Outpatient [facility] [id number] [place] 00:00:00 00:00:00 [facility] 2021-02-12 2021-02-12 Outpatient [facility] [id number] [place] 00:00:00 00:00:00 [facility] 2021-02-12 2021-02-12 Outpatient [facility] [id number] [place] 00:00:00 00:00:00 [facility] 2021-02-09 2021-02-09 Outpatient [facility] [id number] [place] 10:46:05 23:59:00 [facility] 2021-02-09 2021-02-09 Outpatient [facility] [id number] [place] 00:00:00 00:00:00 [facility] 2021-02-09 2021-02-09 Outpatient [facility] [id number] [place] 00:00:00 00:00:00 [facility] 2021-02-08 2021-02-08 [facility] [id number] [place] 10:09:06 23:59:00 [facility] 2021-02-08 2021-02-08 Outpatient [facility] [id number] [place] 00:00:00 00:00:00 [facility] 2021-02-08 2021-02-08 Outpatient [facility] [id number] [place] 00:00:00 00:00:00 [facility] 2021-02-07 2021-02-07 Outpatient ALLISON, [facility] [id number] [place] 09:01:03 23:59:00 [facility] 2021-02-07 2021-02-07 Outpatient CLAIRE, [facility] [id number] [place] 10:39:42 12:39:44 [facility] 2021-02-07 2021-02-07 Outpatient ALLISON, [facility] [id number] [place] 08:28:32 09:00:00 [facility] 2021-02-07 2021-02-07 Outpatient [facility] [id number] [place] 08:22:37 08:25:03 [facility] 2021-02-07 2021-02-07 Outpatient [facility] [id number] [place] 00:00:00 00:00:00 [facility] 2021-02-07 2021-02-07 Outpatient [facility] [id number] [place] 00:00:00 00:00:00 [facility] 2021-02-06 2021-02-06 Outpatient ALLISON, [facility] [id number] [place] 11:01:40 23:59:00 [facility] 2021-02-06 2021-02-06 Outpatient CASTRO, [facility] [id number] [place] 07:45:54 10:22:37 [facility] 2021-02-06 2021-02-06 Outpatient [facility] [id number] [place] 00:00:00 00:00:00 [facility] 2021-02-06 2021-02-06 Outpatient [facility] [id number] [place] 00:00:00 00:00:00 [facility] 2021-02-06 2021-02-06 Outpatient [facility] [id number] [place] 00:00:00 00:00:00 [facility] 2021-02-05 2021-02-05 Outpatient ALLISON, [facility] [id number] [place] 10:27:44 23:59:00 [facility] 2021-02-05 2021-02-05 Outpatient [facility] [id number] [place] 10:22:52 10:25:34 Health 2021-02-05 2021-02-05 Outpatient [facility] [id number] [place] 00:00:00 00:00:00 [facility] 2021-02-05 2021-02-05 Outpatient [facility] [id number] [place] 00:00:00 00:00:00 [facility] 2021-02-05 2021-02-05 Outpatient [facility] [id number] [place] 00:00:00 00:00:00 [facility] 2021-02-02 2021-02-02 [facility]patient [facility] [id number] [place] 11:01:07 23:59:00 [facility] 2021-02-02 2021-02-02 Outpatient [facility] [id number] [place] 00:00:00 00:00:00 [facility] 2021-02-02 2021-02-02 Outpatient [facility] [id number] [place] 00:00:00 00:00:00 [facility] 2021-02-01 2021-02-01 [facility] [id number] [place] 11:07:59 23:59:00 [facility] 2021-02-01 2021-02-01 Outpatient [facility] [id number] [place] 00:00:00 00:00:00 [facility] 2021-02-01 2021-02-01 Outpatient [facility] [id number] [place] 00:00:00 00:00:00 [facility] 2021-01-31 2021-01-31 Outpatient [facility] [id number] [place] 11:23:32 23:59:00 [facility] 2021-01-31 2021-01-31 [facility] [id number] [place] 10:57:12 11:22:00 [facility] 2021-01-31 2021-01-31 Outpatient [facility] [id number] [place] 00:00:00 00:00:00 [facility] 2021-01-31 2021-01-31 Outpatient [facility] [id number] [place] 00:00:00 00:00:00 [facility] 2021-01-30 2021-01-30 Outpatient [facility] [id number] [place] 12:28:51 17:05:55 [facility] 2021-01-30 2021-01-30 Outpatient [facility] [id number] [place] 00:00:00 00:00:00 [facility] 2021-01-30 2021-01-30 Outpatient [facility] [id number] [place] 00:00:00 00:00:00 [facility] 2021-01-30 2021-01-30 Outpatient [facility] [id number] [place] 00:00:00 00:00:00 [facility] 2021-01-30 2021-01-30 Outpatient MATT, [facility] [id number] [place] 00:00:00 00:00:00 [facility] 2021-01-26 2021-01-26 Outpatient ALLISON, [facility] [id number] [place] 11:09:54 23:59:00 [facility] 2021-01-26 2021-01-26 Outpatient [facility] [id number] [place] 11:05:03 11:08:15 [facility] 2021-01-26 2021-01-26 Outpatient CASTRO, [facility] [id number] [place] 00:00:00 00:00:00 [facility] 2021-01-26 2021-01-26 Outpatient [facility] [id number] [place] 00:00:00 00:00:00 [facility] 2021-01-26 2021-01-26 Outpatient [facility] [id number] [place] 00:00:00 00:00:00 [facility] 2021-01-26 2021-01-26 Outpatient [facility] [id number] [place] 00:00:00 00:00:00 [facility] 2021-01-25 2021-01-25 [facility] [id number] [place] 14:45:30 23:59:00 [facility] 2021-01-25 2021-01-25 Outpatient [facility] [id number] [place] 00:00:00 00:00:00 [facility] 2021-01-25 2021-01-25 Outpatient [facility] [id number] [place] 00:00:00 00:00:00 [facility] 2021-01-24 2021-01-24 [facility] [id number] [place] 15:10:47 23:59:00 [facility] 2021-01-24 2021-01-24 [facility] [id number] [place] 14:32:38 14:39:00 [facility] 2021-01-24 2021-01-24 Outpatient [facility] [id number] [place] 00:00:00 00:00:00 [facility] 2021-01-24 2021-01-24 Outpatient [facility] [id number] [place] 00:00:00 00:00:00 [facility] 2021-01-24 2021-01-24 Outpatient [facility] [id number] [place] 00:00:00 00:00:00 [facility] 2021-01-24 2021-01-24 Outpatient JONHARNOLD [facility] [id number] [place] 00:00:00 00:00:00 [facility] 2021-01-23 2021-01-23 [facility] [id number] [place] 12:15:19 23:59:00 [facility] 2021-01-23 2021-01-23 Outpatient CASTRO, [facility] [id number] [place] 07:24:28 12:23:28 [facility] 2021-01-23 2021-01-23 Outpatient [facility] [id number] [place] 00:00:00 00:00:00 [facility] 2021-01-23 2021-01-23 Outpatient [facility] [id number] [place] 00:00:00 00:00:00 [facility] 2021-01-22 2021-01-22 [facility] [id number] [place] 09:52:20 23:59:00 [facility] 2021-01-22 2021-01-22 Outpatient [facility] [id number] [place] 09:02:31 09:05:13 [facility] 2021-01-22 2021-01-22 Outpatient [facility] [id number] [place] 00:00:00 00:00:00 [facility] 2021-01-22 2021-01-22 [facility] [id number] [place] 00:00:00 00:00:00 BISHOP Ferraro 2021-01-19 2021-01-19 [facility]patient [facility] [id number] [place] 08:30:20 23:59:00 [facility] 2021-01-19 2021-01-19 Outpatient CASTRO, [facility] [id number] [place] 12:52:05 15:15:13 [facility] 2021-01-19 2021-01-19 Outpatient [facility] [id number] [place] 11:22:18 12:12:57 [facility] 2021-01-19 2021-01-19 [facility] [id number] [place] 00:00:00 00:00:00 BISHOP Ferraro 2021-01-182021-01-18 [facility] [id number] [place] 08:45:19 23:59:00 [facility] 2021-01-17 2021-01-17 Outpatient [facility] [id number] [place] 00:00:00 00:00:00 [facility] 2021-01-17 2021-01-17 Outpatient [facility] [id number] [place] 00:00:00 00:00:00 [facility] 2021-01-16 2021-01-16 Outpatient [facility] [id number] [place] 00:00:00 00:00:00 [facility] 2021-01-15 2021-01-15 Outpatient [facility] [id number] [place] 16:01:15 16:01:35 [facility] 2021-01-15 2021-01-15 Outpatient [facility] [id number] [place] 08:59:26 09:03:01 [facility] 2021-01-15 2021-01-15 Outpatient NAJMA, [facility] [id number] [place] 00:00:00 00:00:00 [facility] 2021-01-12 2021-01-12 Outpatient ZARIA BRUNER [facility] [id number] [place] 10:44:39 11:59:30 [facility] 2021-01-09 2021-01-09 Outpatient [facility] [id number] [place] 00:00:00 00:00:00 [facility] 2021-01-08 2021-01-08 Outpatient [facility] [id number] [place] 09:11:41 09:16:46 [facility] 2021-01-08 2021-01-08 [facility] [id number] [place] 00:00:00 00:00:00 [facility] 2021-01-04 2021-01-04 Emergency NABILA OSCAR [facility] [id number] [place] 16:02:00 18:23:00 [facility] 2021-01-04 2021-01-04 Emergency YAJAIRA, [facility] [id number] [place] 15:14:15 15:14:15 [facility] 2021-01-03 2021-01-03 Outpatient [facility] [id number] [place] 10:14:03 23:59:00 [facility] 2021-01-03 2021-01-03 [facility] [id number] [place] 08:21:30 09:15:25 [facility] 2020-12-29 2020-12-29 Outpatient JENELLE, [facility] [id number] [place] 13:55:59 14:36:27 [facility] 2020-12-28 2020-12-28 Outpatient DEBI MATTHEW [facility] [id number] [place] 10:35:16 13:03:46 [facility] 2020-12-27 2020-12-27 Outpatient [facility] [id number] [place] 12:50:24 23:59:00 [facility] 2020-12-22 2020-12-22 Outpatient CASTRO, [facility] [id number] [place] 10:28:26 12:10:43 [facility] 2020-12-22 2020-12-22 Outpatient [facility] [id number] [place] 10:21:00 10:23:49 [facility] 2020-12-22 2020-12-22 Outpatient JENELLE, [facility] [id number] [place] 09:03:29 09:10:50 [facility] 2020-12-22 2020-12-22 Outpatient JENELLE, [facility] [id number] [place] 07:25:33 08:27:51 [facility] 2020-12-22 2020-12-22 Outpatient CASTRO, [facility] [id number] [place] 00:00:00 00:00:00 [facility] 2020-12-22 2020-12-22 Outpatient JENELLE, [facility] [id number] [place] 00:00:00 00:00:00 [facility] 2020-12-17 2020-12-18 [facility] [id number] [place] 07:26:00 10:32:00 [facility] 2020-12-17 2020-12-17 Emergency PIPITONE, [facility] [id number] [place] 08:38:30 10:14:48 [facility] 2020-12-17 2020-12-17 Emergency PIPITONE, [facility] [id number] [place] 08:42:10 08:54:48 [facility] 2020-12-14 2020-12-14 Outpatient [facility] [id number] [place] 00:00:00 00:00:00 [facility] 2020-12-13 2020-12-13 Outpatient KYLER ANAYA [facility] [id number] [place] 06:43:43 13:03:00 [facility] 2020-12-13 2020-12-13 Outpatient [facility] [id number] [place] 12:00:57 12:00:57 [facility] 2020-12-13 2020-12-13 Outpatient [facility] [id number] [place] 09:52:58 09:52:58 [facility] 2020-12-13 2020-12-13 Outpatient [facility] [id number] [place] 07:09:58 07:09:58 [facility] 2020-12-13 2020-12-13 [facility] [id number] [place] 00:00:00 00:00:00 MARIA LUZ [facility] 2020-12-12 2020-12-12 Outpatient ERROL, [facility] [id number] [place] 05:55:15 14:02:44 [facility] 2020-12-12 2020-12-12 Outpatient CHRISTEN GAR [facility] [id number] [place] 05:44:45 05:48:00 [facility] 2020-12-12 2020-12-12 Outpatient CHRISTEN GAR [facility] [id number] [place] 00:00:00 00:00:00 [facility] 2020-12-12 2020-12-12 [facility] [id number] [place] 00:00:00 00:00:00 [facility] 2020-12-08 2020-12-08 Outpatient [facility] [id number] 14:28:00 23:59:00 David paris 2020-12-08 2020-12-08 [facility] [id number] [place] 08:49:28 13:59:46 [facility] 2020-12-08 2020-12-08 Outpatient [facility] [id number] [place] 11:09:54 11:13:35 [facility] 2020-12-08 2020-12-08 Outpatient GLORIA, [facility] [id number] [place] 00:00:00 00:00:00 [facility] 2020-12-08 2020-12-08 Outpatient VICTOR MYArley [facility] [id number] [place] 00:00:00 00:00:00 RYAN DAVIDSON 2020-11-30 2020-11-30 Outpatient GLORIA, [facility] [id number] [place] 20:00:58 23:59:00 [facility] 2020-11-28 2020-11-28 Outpatient ABRAN GERMAN [facility] [id number] [place] 12:54:23 23:59:00 [facility] 2020-11-24 2020-11-24 Outpatient KEMI MCMULLEN [id number] 13:45:00 23:59:00 David kaushik paris 2020-11-24 2020-11-24 [facility] [id number] [place] 08:45:53 10:31:27 [facility] 2020-11-24 2020-11-24 Outpatient [facility] [id number] [place] 10:22:58 10:31:02 [facility] 2020-11-24 2020-11-24 [facility] [id number] [place] 00:00:00 00:00:00 [facility] 2020-11-21 2020-11-21 [facility] [id number] [place] 13:52:03 14:43:21 SKINNY Mccormick 2020-11-17 2020-11-17 Outpatient KYLER ANAYA [facility] [id number] [place] 07:04:54 11:42:00 [facility] 2020-11-17 2020-11-17 [facility] [id number] [place] 11:03:02 11:03:02 [facility] 2020-11-17 2020-11-17 Outpatient [facility] [id number] [place] 10:12:31 10:12:31 [facility] 2020-11-17 2020-11-17 Outpatient [facility] [id number] [place] 07:36:30 07:36:30 [facility] 2020-11-15 2020-11-15 [facility] [id number] [place] 05:42:05 05:42:49 [facility] 2020-11-15 2020-11-15 [facility] [id number] [place] 00:00:00 00:00:00 [facility] 2020-11-08 2020-11-08 Outpatient CAMMIE-Y-Whitney [facility] [id number] [place] 08:16:07 11:45:00 RYAN DAVIDSON [facility] 2020-11-08 2020-11-08 Outpatient KYLER ANAYA [facility] [id number] [place] 00:00:00 00:00:00 [facility] 2020-11-07 2020-11-07 Outpatient [facility] [id number] [place] 13:30:11 15:50:42 [facility] 2020-11-07 2020-11-07 [facility] [id number] [place] 05:42:18 05:45:50 [facility] 2020-11-07 2020-11-07 Outpatient BONDS-Y-M [facility] [id number] [place] 00:00:00 00:00:00 RYAN DAVIDSON [facility] 2020-11-02 2020-11-02 Outpatient BONDS-Y-M [facility] [id number] [place] 13:42:15 14:53:18 RYAN DAVIDSON [facility] 2020-11-02 2020-11-02 Outpatient [facility] [id number] [place] 00:00:00 00:00:00 [facility] 2020-10-31 2020-10-31 [facility] [id number] [place] 14:05:31 15:12:02 [facility] 2020-10-31 2020-10-31 Outpatient [facility] [id number] [place] 12:12:06 12:16:47 [facility] 2020-10-31 2020-10-31 Outpatient [facility] [id number] [place] 11:46:13 11:57:57 [facility] 2020-10-31 2020-10-31 Outpatient [facility] [id number] [place] 00:00:00 00:00:00 [facility] 2020-10-26 2020-10-26 Outpatient Zala_G VFP P [id number] [facility] 05:26:00 05:26:00 [id number] Family Practic e 2020-10-18 2020-10-18 Outpatient KYLER ANAYA [facility] [id number] [place] 08:58:35 11:55:35 [facility] 2020-10-16 2020-10-16 Outpatient KYLER ANAYA [facility] [id number] [place] 16:42:27 23:59:00 [facility] 2020-10-11 2020-10-11 Outpatient [facility] [id number] [place] 08:57:18 09:07:05 [facility] 2020-10-11 2020-10-11 Outpatient KYLER ANAYA [facility] [id number] [place] 00:00:00 00:00:00 [facility] 2020-10-04 2020-10-04 Outpatient KYLER ANAYA [facility] [id number] [place] 10:02:36 12:19:59 Health 2020-10-04 2020-10-04 Outpatient [facility] [id number] [place] 00:00:00 00:00:00 Health 2020-09-27 2020-09-27 Emergency DIANA [facility] [id number] [place] 09:23:00 15:41:00 ERIC [facility] 2020-09-27 2020-09-27 Emergency [facility] [id number] [place] 13:39:52 13:52:41 Health 2020-09-27 2020-09-27 Emergency [facility] [id number] [place] 12:41:13 12:53:49 Health 2020-09-13 2020-09-13 Outpatient [facility] [id number] [place] 00:00:00 00:00:00 Health 2020-08-30 2020-08-30 Outpatient [facility]G VFP VFP [id number] [facility] 01:32:00 01:32:00 [id number] Family Practic e 2020-08-17 2020-08-17 Emergency ASHWIN KNIGHT [facility] [id number] [place] 09:19:00 15:45:00 Health 2020-08-14 2020-08-15 Outpatient ER [facility] [facility] 924 [id number] [place] 12:10:00 12:27:00 LINA paris Results Test Description Test Time Test Comments Results Result Comments Source HIV 1+2 Ab+HIV1 p24 Ag SerPl Ql IA 2021-06-11 23:56:42 Test Item Value Reference Range Interpretation Comme nts HIV 1+2 Ab+HIV1 p24 Ag SerPl Ql IA (test code = 34321-0) NEGATIVE Negative SARS-CoV-2 RNA Resp Ql ELVI+zyhiz1529-61-43 09:52:40 Test Item Value Reference Range Interpretation Comments Hospitalized? (test code = No 11159-6) ICU? (test code = 92848-5) No Symptomatic as defined by CDC? No (test code = 39312-1) Employed in Healthcare? (test No code = 09245-8) Resident in a congregate care No setting (including nursing homes, residential care for people with intellectual and developmental disabilities, psychiatric treatment facilities, group homes, board and care homes, homeless intermediate, foster care or other): (test code = 76278-8) SARS-CoV-2 RNA Resp Ql ELVI+probe NOT DETECTED Not Detected (test code = 76462-0) COMMENT: The Spiracur Xpert Xpress SARS-CoV-2 real-time PCR test was developed and its performance characteristics have been determined by the [facility]. This test has not been cleared or approved by the FDA. This test system has been authorized by the FDA under an Emergency Use Authorization (EUA). This test has been validated in accordance with the FDA\\SX83541\\s Guidance document \\RA7819U\\Policy for Diagnostic Tests for Coronavirus Disease-2019 during the Public Health Emergency\\VW5379J\\ issued on October 11, 2019 and is used for clinical purposes. It should not be regarded as investigational or for research. \\LD2595W\\Detected\\WF2029A\\ results are in dicative of active infection with SARS-CoV-2; clinical correlation with patient history and other diagnostic information is necessary to determine patient infection status.\\AC2475A\\Not Detected\\AR1073O\\ results do not preclude SARS-CoV-2 infection and should not be used as the sole basis for treatmentor other patient management decisions. Negative results must be combined with clinical observations, patient history, and epidemiological information.This laboratory is certified under the Clinical Laboratory Improvement Amendments (CLIA) as qualified to perform high complexity clinical laboratory testing. SARS-CoV-2 RNA Resp Ql ELVI+rievt8671-79-01 14:11:47 Test Item Value Reference Range Interpretation Comments Hospitalized? (test Yes code = 08482-9) ICU? (test code = Yes 920546-5) Symptomatic as defined No by CDC? (test code = 87665-5) Employed in No Healthcare? (test code = 76570-8) Resident in a No congregate care setting (including nursing homes, residential care for people with intellectual and developmental disabilities, psychiatric treatment facilities, group homes, board and care homes, homeless intermediate, foster care or other): (test code = 99992-5) SARS-CoV-2 RNA Resp Ql NOT DETECTED Not Detected INTER PRETATION: No ELVI+probe (test code = detec table levels 71068-3) of SARS-CoV-2 Coronavirus (COVID-19) were present in this patient's sampl e by this test. A no t detected result does not exclud e the possibility of active infectio n with this virus due to other factor s that may affect the results such as a poorly collecte d sample, viral titers below th e limit of detect ion of the assay, a nd the infrequent possibility of inhibitors in t he sample. This re sult should be interpreted in conjunction wit h clinical, radiographic, a nd other laborator y findings and sh ould not be used as the sole indicator of active infectio n with SARS-CoV-2 Coronavirus (COVID-19). COMMENT: This meño real-time reverse transcriptase polymerase chain reaction (RT-PCR) test rapidly detects SARS-CoV-2 (COVID-19) virus from nasopharyngeal and nasal swab specimens. In accordance with the FDA's guidance document "Policy for Diagnostic Tests for Coronavirus Disease-2019 during the Public Health Emergency", this test was developed, and its performance characteristics were verified by the [facility] molecular diagnostics laboratory and is authorized for clinical diagnostic use. This laboratory is certified under the Clinical Laboratory Improvement Amendments (CLIA) as qualified to perform high complexity clinical laboratory testing.SARS-CoV-2 RNA Resp Ql ELVI+xxwlp2171-22-30 05:44:25 Test Item Value Reference Range Interpretation Comments Hospitalized? (test No code = 67599-8) ICU? (test code = No 88875-0) Symptomatic as defined No by CDC? (test code = 95910-9) Employed in No Healthcare? (test code = 52330-8) Resident in a No congregate care setting (including nursing homes, residential care for people with intellectual and developmental disabilities, psychiatric treatment facilities, group homes, board and care homes, homeless intermediate, foster care or other): (test code = 59746-1) SARS-CoV-2 RNA Resp Ql NOT DETECTED Not Detected INTER PRETATION: No ELVI+probe (test code = detec table levels 43188-4) of SARS-CoV-2 Coronavirus (COVID-19) were present in this patient's sampl e by this test. A no t detected result does not exclud e the possibility of active infectio n with this virus due to other factor s that may affect the results such as a poorly collecte d sample, viral titers below th e limit of detect ion of the assay, a nd the infrequent possibility of inhibitors in t he sample. This re sult should be interpreted in conjunction wit h clinical, radiographic, a nd other laborator y findings and sh ould not be used as the sole indicator of active infectio n with SARS-CoV-2 Coronavirus (COVID-19). COMMENT: This meño real-time reverse transcriptase polymerase chain reaction (RT-PCR) test rapidly detects SARS-CoV-2 (COVID-19) virus from nasopharyngeal and nasal swab specimens. In accordance with the FDA's guidance document "Policy for Diagnostic Tests for Coronavirus Disease-2019 during the Public Health Emergency", this test was developed, and its performance characteristics were verified by the [facility] molecular diagnostics laboratory and is authorized for clinical diagnostic use. This laboratory is certified under the Clinical Laboratory Improvement Amendments (CLIA) as qualified to perform high complexity clinical laboratory testing.SARS-CoV-2 RNA Resp Ql ELVI+ckxbj2348-41-64 22:19:07 Test Item Value Reference Range Interpretation Comments Symptomatic as defined No by CDC? (test code = 83790-8) Hospitalized? (test Yes code = 05725-8) ICU? (test code = Yes 01338-3) Employed in No Healthcare? (test code = 01038-3) Resident in a No congregate care setting (including nursing homes, residential care for people with intellectual and developmental disabilities, psychiatric treatment facilities, group homes, board and care homes, homeless intermediate, foster care or other): (test code = 19358-8) SARS-CoV-2 RNA Nph Ql NOT DETECTED Not Detected The 20 novel ELVI+probe (test code = coron avirus 40676-7) (SARS-CoV-2) ta rget nucleic acids a re not detected. COMMENT: The Simple Star SARS-CoV-2 real-time RT-PCR based diagnostic test intended for the qualitative detection of SARS-CoV-2 viral RNA in a nasopharyngeal swab during acute phase of infection. This test was developed and its performance characteristics have been determined by the [facility]. This test has not been cleared or approved by the FDA. This testsystem has been authorized by the FDA under an Emergency Use Authorization (EUA). This test has beenvalidated in accordance with the FDA\\SB18680\\s Guidance document \\MZ3813Z\\Policy for Coronavirus Disease-2019 Tests During the Public Health Emergency\\WG4241U\\ (Revised November 2019) and is used for clinical purposes. It should not be regarded as investigational or for research\\BZ4163K\\Detected\\SR7720R\\ results are indicative of the presence of the identified virus, but do not rule out bacterial infection or co-infection with other pathogens not detected by the test. Clinical correlation with patient his tory and other diagnostic information is necessary to determine patient infection status. \\SQ7210Y\\Not Detected\\UT7396P\\ results do not preclude SARS-CoV-2 and should not be used as the sole basis for treatment or other patient management decisions. Negative results must be combined with clinical observations, patient history, and/or epidemiological information.This laboratory is certified under the Clinical Laboratory Improvement Amendments (CLIA) as qualified to perform high complexity clinical laboratory testing.Blood Ttdoykl9719-08-61 20:31:16 Test Item Value Reference Range Interpretation Comments Final Report (test No growth code = 8488) Path Review - Immunity and antibiotic Bottle/Isolator use may render culture (test code = 8499) negative. Ongoing infection requires repeat culture. The results have been reviewed and electronically signed by Pathologist:Catherine Moreno MD, PhD #[id number] [facility] Fduxhpf9575-31-[facility] 01:47:27 Test Item Value Reference Range Interpretation Comments Final Report (test No growth code = 8488) Path Review - Urine The results have been (test code = 8483) reviewed and electronically signed by Pathologist:RAMIREZ SENIOR MD #[id number] [facility] Glucose Dcrfkj6424-12-65 16:49:31 Test Item Value Reference Range Interpretation Comments POC Glucose (test 293 mg/dL 70-99 H Capillary blood code = 90088-5) samples, e.g . obtained by fingerstick, may have inaccurate results in patients wit h decreased perip heral blood flow. Met hod description: Al l results are ludin sured using Electroch emistry test methodolog y. The glucose in the sample mixes with the reagents on the test str ip. The reaction produc es an electric curren t. The amount of curre nt produced is proportional to the glucose concent ration in the blood. PO Sample Type (test Capillary code = 9554) Lab Interpretation Abnormal (test code = 18751-3) MD [facility] Mcbd6882-18-36 08:59:11 Test Item Value Reference Range Interpretation Comments eGFR-AA (test code 91 See_Comment Normal eG FR: >= 60 = 8062) mL/min/1.73 m2N ote: The eGFR is calculated u sing the CKD-EPI equatio n. The eGFR declines with a ge. eGFR <60 mL/min/1.73 m2 is considered as "decreased". This equation should only be used for patients 18 and older. According to th e National Kid[employer] on's Kidney Disease Outcome Quality Initiative (KDO QI) classification and 2012 Kidney Disease Improving Global Outcomes (KDIGO) Clinical Practi ce Guideline, the stage of CK D should be categorized bas ed on estimated GFR. Stage Description GFR mL/min/1.73 m21 Normal or high GFR >=902 Mildly decrease d GFR 60-893a M ildly to moderately decr eased GFR 45-593b Moderat sony to severely decrea sed GFR 30-444 Severely decreased GFR 15-295 Kid danuta failure <15 [Automa brandie message] The system LectureTools generated this result tra nsmitted reference range : >=60 mL/min/1.73 sq. m. The reference range was not used to interpret th is result as normal/abnormal . eGFR-ELVI (test code 79 See_Comment Normal e GFR: >= 60 = 8063) mL/min/1.73 m2N ote: The eGFR is calculated u sing the CKD-EPI equatio n. The eGFR declines with a ge. eGFR <60 mL/min/1.73 m2 is considered as "decreased". This equation should only be used for patients 18 and older. According to th e National Kidney [employer] on's Kidney Disease Outcome Quality Initiative (KDO QI) classification and 2012 Kidney Disease Improving Global Outcomes (KDIGO) Clinical Practi ce Guideline, the stage of CK D should be categorized bas ed on estimated GFR. Stage Description GFR mL/min/1.73 m21 Normal or high GFR >=902 Mildly decrease d GFR 60-893a M ildly to moderately decr eased GFR 45-593b Moderat sony to severely decrea sed GFR 30-444 Severely decreased GFR 15-295 Kid danuta failure <15 [Automa brandie message] The system LectureTools generated this result tra nsmitted reference range : >=60 mL/min/1.73 sq. m. The reference range was not used to interpret th is result as normal/abnormal . MD [facility] Tngsb9692-70-15 08:59:10 Test Item Value Reference Range Interpretation Comments Magnesium (test code = 6359) 2.0 mg/dL 1.6-2.6 MD [place].Serum Nootlbmeiy0974-69-84 08:59:09 Test Item Value Reference Range Interpretation Comments Creatinine (test code = 5399) 0.99 mg/dL 0.67-1.17 MD OrlandoPhosphorus Kefno0795-20-45 08:59:08 Test Item Value Reference Range Interpretation Comments Phosphorus (test code = 6817) 3.6 mg/dL 2.5-4.5 MD OrlandoGxhbbifhLQA7429-82-38 08:59:07 Test Item Value Reference Range Interpretation Comments BUN (test code = 5055) 9 mg/dL 6-23 MD OrlandoCalcium Ezqqu2344-12-35 08:59:06 Test Item Value Reference Range Interpretation Comments Calcium Lvl (test code = 5258) 8.5 mg/dL 8.4-10.2 MD OrlandoElectrolyte Gidhv3959-99-31 08:59:05 Test Item Value Reference Range Interpretation Comments Sodium Lvl (test code = 136 See_Comment [Au tomated message] The 7328) system which ge nerated this result tra nsmitted reference range : 136 - 145 mEq/L. The reference range was not u sed to interpret this result as normal/abnormal . Potassium Lvl (test 4.1 See_Comment [Automa brandie message] The code = 6854) system which ge nerated this result tra nsmitted reference range : 3.5 - 5.1 mEq/L. The reference range was not u sed to interpret this result as normal/abnormal . Chloride (test code = 103 See_Comment [Auto mated message] The 6556) system which ge nerated this result tra nsmitted reference range : 98 - 107 mEq/L. The refe rence range was not u sed to interpret this result as normal/abnormal . CO2 (test code = 5227) 25 See_Comment [Aut omated message] The system which ge nerated this result tra nsmitted reference range : 22 - 29 mEq/L. The refe rence range was not u sed to interpret this result as normal/abnormal . Anion Gap (test code = 8 See_Comment [Aut omated message] The 1607) system which ge nerated this result tra nsmitted reference range : 4 - 14 mEq/L. The refe rence range was not u sed to interpret this result as normal/abnormal . MD [facility] Zyocn6847-41-17 08:59:04 Test Item Value Reference Range Interpretation Comments Glucose Level (test code 245 mg/dL 70-99 H Eff ective 02/21/16, = 5699) the glucose reference inter vals have been updat ed based on [place] an Diabetes Associ ation guidelines (Standards of Medical Care in Diabetes 2016. Diabetes Care 2 016; 39: S13-S22).Fa sting blood glucose:Normal: 70 99 mg/dLImpaire d fasting glucose (increased risk for diabetes or pre-diabetes): 100 125 mg/dLDiabet es mellitus: >/=1 26 mg/dL Random bl ood glucose:Normal: 70 199 mg/dLNote: Random glucose >100 mg/dL is associ ated with increased risk for diabetes Lab Interpretation (test Abnormal code = 27472-4) MD OrlandoGwgjydxkTgboeo3292-26-79 08:57:04 Test Item Value Reference Range Interpretation Comments Lipase Lvl (test code = 6165) 25 U/L 13-60 MD OrlandoUhhcbpoeNhwfwgp3749-15-20 08:57:03 Test Item Value Reference Range Interpretation Comments Amylase Lvl (test code = 4806) 92 U/L 28-100 MD OrlandoMybholgrCaoecazimbey3307-27-67 08:32:36 Test Item Value Reference Range Interpretation Comments Neutrophil % (test code = 52.0 % 42.0-66.0 52142-0) Lymphocyte % (test code = 36.2 % 24.0-44.0 737-7) Monocyte % (test code = 7.6 % 2.0-7.0 H 744-3) Eosinophil % (test code = 3.1 % 1.0-4.0 713-8) Basophil % (test code = 0.7 % 0.0-1.0 707-0) IGRE % (test code = 0.4 % 0.0-0.4 IGRE % c ount 24768-5) includes Metamyelocytes, Myelocytes, and Promyelocytes. Neutrophil Abs (test code 5.51 K/uL 1.70-7.30 = 753-4) Lymphocyte Abs (test code 3.83 K/uL 1.00-4.80 = 732-8) Monocyte Abs (test code = 0.80 K/uL 0.08-0.70 H 743-5) Eosinophil Abs (test code 0.33 K/uL 0.04-0.40 = 712-0) Basophil Abs (test code = 0.07 K/uL 0.00-0.10 705-4) IG Abs (test code = 0.04 K/uL 0.00-0.04 79293-4) Lab Interpretation (test Abnormal code = 42031-8) MD [place].[id number] 08:32:33 Test Item Value Reference Range Interpretation Comments WBC (test code = 10.6 K/uL 4.0-11.0 6690-2) RBC (test code = 789-8) 4.39 See_Comment L [Au tomated message] The system LectureTools generated this result transmitted ref erence range: 4.50 - 6 .00 M/uL. The refer ence range was not u sed to interpret this result as normal/abnor mal. Hgb (test code = 718-7) 12.8 See_Comment L [Au tomated message] The system [employer] generated this result transmitted ref erence range: 14.0 - 1 8.0 gm/dL. The refe rence range was not u sed to interpret this result as normal/abnor mal. Hct (test code = 40.9 % 40.0-54.0 4544-3) MPV (test code = 787-2) 9.4 fL 4.0-10.4 MCH (test code = 785-6) 29.2 pg 27.0-31.0 MCHC (test code = 31.3 See_Comment [Automate d message] 786-4) The system [employer] generated this result transmitted ref erence range: 31.0 - 3 6.0 gm/dL. The refe rence range was not u sed to interpret this result as normal/abnor mal. RDW-SD (test code = 44.5 fL 35.1-46.3 16481-1) RDW-CV (test code = 13.1 % 12.0-15.5 788-0) Platelet count (test 316 K/uL 140-440 code = 777-3) INRBC (test code = 0.0 % See_Comment The INRBC (instrument 5974) NRBC) value ref lects the enumeration of nucleated red b lood cells contained in a 200uL sampleof whole blood analyzed by the instrument. Thi s value maydiffer from the NRBC value reported in a m anual differential,wh ich is based on a 100 cell differential. [Automated mess age] The system whic h generated this result transmitted ref erence range: <=0.0. T he reference range was not used to int erpret this result as normal/abnormal . Lab Interpretation Abnormal (test code = 38828-0) MD Jarod Davis (In-House)2020-08-15 04:19:59 Test Item Value Reference Range Interpretation Comments Troponin T (test code 11 ng/L See_Comment < 19 ng/L = 9384) Sugge st retest at 3 to 6 hours later to rule out myocar dial infarction >= 1 9 to <=52 ng/L Possible myocardial inju ry. Suggest retest at 3 hours. - a change of < 20 ng/L, retest at 6 fatimah rs - a change of >= 20 ng/L, sug gestive of myocardial infarction > 5 2 ng/L Suggestive of m yocardial infarction Crit ical value will be reporte d when cTnT isf > 52 n g/L and only reported f or the first in a seri es. Hemolyzed speci mens with Hemolysis Index >100 (100 mg/dl or modera te hemolysis) may cause interferences a nd falsely low results. [ Automated message] The sy stem which generated this result transmitted ref erence range: <=18. Th e reference range was not used to interpr et this result as normal/abnormal . MD OrlandoNT-Pro BNP (In-House)2020-08-15 03:43:50 Test Item Value Reference Range Interpretation Comments NT ProBNP (test code 30 pg/mL See_Comment [Autom ated message] The = 9385) system which ge nerated this result tra nsmitted reference range : <=125. The reference r star was not used to int erpret this result as normal/abnormal . MD [facility] [id number] 03:25:38 Test Item Value Reference Range Interpretation Comments Ordered (test code = Test Added Test ad ded to 6568) accession [id number] Test Needed (test NT ProBNP code = 7604) MD OrlandoUrinalysis with Lfrqibdvnir2553-87-55 22:22:34 Test Item Value Reference Range Interpretation Comments UA WBC (test 1 See_Comment [Automated code = 7904) message] The system which generated this result transmitted reference range : 0 - 2 /HPF. The reference range was not used to interpret this result as normal/abnormal . UA RBC (test 1 See_Comment [Automated code = 7891) message] The system which generated this result transmitted reference range : 0 - 2 /HPF. The reference range was not used to interpret this result as normal/abnormal . UA Mucous (test NOT SEEN TRACE /HPF code = 7887) UA Bacteria NOT SEEN NOT SEEN /HPF (test code = 7870) UA Squam Epi NOT SEEN OCC /HPF (test code = 7896) YOMI (test code Some reporting = YOMI) parameters within the Urinalysis test have changed due to the implementation of new instrumentation in the [facility] [place], allowing greater sensitivity of measurement. Urinalysis results reported by the [facility] using existing instrumentation, as well as Urinalysis testing performed manually or by backup methodology at the [facility] [place] will remain relatively unchanged. New reporting parameters and units will now be reported for all campuses. MD OrlandoUrinalysis w/Microscopic if Nwvtnulmd3047-31-74 21:57:35 Test Item Value Reference Range Interpretation Comments UA Color (test code = 7877) Yellow Yellow UA Appear (test code = 7868) Clear Clear UA Glucose (test code = 7881) >=500 NEG mg/dL A UA Bili (test code = 7871) NEG NEG UA Ketones (test code = 7884) NEG NEG mg/dL UA Spec Grav (test code = 7894) 1.018 1.002-1.035 UA Blood (test code = 7872) NEG NEG UA pH (test code = 7909) 6.0 4.5-8.0 UA Protein (test code = 7890) 30 mg/dL NEG A UA Urobilinogen (test code = 7903) NEG NEG UA Nitrite (test code = 7888) NEG NEG UA Leuk Est (test code = 7886) NEG NEG Lab Interpretation (test code = Abnormal 34796-3) MD OrlandoRespiratory Viral Panel + COVID-19, Nasopharyngeal [id number] 21:19:08 Test Item Value Reference Range Interpretation Comments Adenovirus (test code = Not Detected Not Detected 0605) Coronavirus 229E (test Not Detected Not Detected code = 5349) Coronavirus HKU1 (test Not Detected Not Detected code = 5350) Coronavirus NL63 (test Not Detected Not Detected code = 5351) Coronavirus OC43 (test Not Detected Not Detected code = 5352) COVID19 (SARS-CoV-2) Not Detected Not Detected (test code = 18970-0) Human Metapneumovirus Not Detected Not Detected (test code = 6401) Human Not Detected Not Detected Rhinovirus/Enterovirus (test code = 7212) Influenza A (test code Not Detected Not Detected = 5618) Influenza A H1 (test Not Detected Not Detected code = 5619) Influenza A H1 2009 Not Detected Not Detected (test code = 5620) Influenza A H3 (test Not Detected Not Detected code = 5621) Influenza B (test code Not Detected Not Detected = 5622) Parainfluenza 1 (test Not Detected Not Detected code = 6779) Parainfluenza 2 (test Not Detected Not Detected code = 6780) Parainfluenza 3 (test Not Detected Not Detected code = 6781) Parainfluenza 4 (test Not Detected Not Detected code = 6782) Respiratory Syncytial Not Detected Not Detected Virus (test code = 7157) Bordetella Not Detected Not Detected Parapertussis (test code = 65347) Bordetella pertussis Not Detected Not Detected (test code = 4854) Chlamydiophila Not Detected Not Detected pneumoniae (test code = 5139) Mycoplasma pneumoniae Not Detected Not Detected (test code = 6203) YOMI (test code = YOMI) The BioFire RP2.1 is a real-time, nested multiplexed polymerase chain reaction test designed to simultaneously identify nucleic acids from 22 different viruses and bacteria associated with respiratory tract infection, including SARS-CoV-2, from a single nasopharyngeal swab (MATERIAL HAULER) specimen. Specifically, the SARS-CoV-2 primers contained in the BioFire RP2.1 are designed to detect RNA from the SARS-CoV-2 in nasopharyngeal swabs in transport media from patients who are suspected of COVID-19 by their healthcare provider. Results must be interpreted within the context of all relevant clinical and laboratory findings and should not form the sole basis for a diagnosis or treatment decision. This assay has been approved by the FDA for use only under Emergency Use Authorization (EUA) in laboratories that have been CLIA-certified to perform moderate-complexity and high-complexity tests. The Microbiology Laboratory at [facility], CLIA Accreditation #[id number] and CAP Accreditation #[id number], verified the performance characteristics of this assay. [facility] at [facility] performs the assay using the [employer] System. Internal controls are used to monitor all stages of the test process. [facility] VBG+Alh1925-77-64 20:05:00 Test Item Value Reference Range Interpretation Comments POC VB pH (test 7.38 7.31-7.41 code = 6719) POC VB pCO2 (test 44 See_Comment [Automate d message] The code = 6718) system which ge nerated this result tra nsmitted reference range : 41 - 51 mmHg. The refer ence range was not used to interpret this result as normal/abnormal . POC VB pO2 (test 67 mmHg code = 6720) POC VB TCO2 (test 27 See_Comment [Automate d message] The code = 2026-) system which generated this result tra nsmitted reference range : 24 - 29 mEq/L. The refe rence range was not used to interpret this result as normal/abnormal . POC VB Bicarb 26 mmol/L 23-28 (test code = 93256-1) POC VB Base Ex 0 mmol/L -2-3 (test code = 1927-3) POC VB O2 Sat 93 % (test code = 6716) POC VB LAC (test 1.5 mmol/L 0.9-1.7 Method desc ription: The code = 2519-7) i-STAT is an analyzer used for in vitro quantification of various analytes in who le blood. The device uses a single disposable cart ridge which contains microf abricated sensors, a lázaro bration solution, fluid ics system, and a waste marianela mber. Each test cartridge contains chemically sens itive biosensors on a silicon chip that are c onfigured to perform spec ific tests. The microfabric ated sensors measure analyte concentration b y an electrochemical assay. POC Sample Type Venous (test code = 6690) POC Clean Dev Yes (test code = 6672) MD OrlandoFractionated [id number] 19:58:10 Test Item Value Reference Range Interpretation Comments Bili Total (test 0.9 mg/dL See_Comment Indocyanine Green (ICG) code = 5096) may cause false ly elevated biliru bin results. Total and direct bilirubin must not be measured from s amples containing indo cyanine green. False el evation of total bilirubin can be seen in patient s with IgG concentrations above 28 g/L. [Automate d message] The system [employer] generated this result transmitted ref erence range: <=1.2. T he reference range was not used to interpr et this result as normal/abnormal . Bili Direct (test 0.2 mg/dL See_Comment Indocyanin e Green (ICG) code = 5094) may cause false ly elevated biliru bin results. Total and direct bilirubin must not be measured from s amples containing indo cyanine green. [Automat ed message] The sy stem which generated this result transmitted ref erence range: <=0.3. T he reference range was not used to interpr et this result as normal/abnormal . Bili Indirect (test 0.7 mg/dL 0.0-0.9 code = 5095) MD [id number] 19:58:08 Test Item Value Reference Range Interpretation Comments LDH (test code = 6111) 226 U/L 135-225 H Resul ts greater than 1651 U/L may no t be reliable due to matrix effect w ith extended diluti on as it exceeds the bottling attendant s recommended l imit. Caution should be exercised when interpreting coughlin ch values and done in conjunction wit h clinical contex t. Lab Interpretation (test Abnormal code = 28402-8) MD OrlandoAlbumin [id number] 19:58:06 Test Item Value Reference Range Interpretation Comments Albumin Lvl (test code 3.7 See_Comment [Aut omated message] The = 0252) system which ge nerated this result tra nsmitted reference range : 3.5 - 5.2 gm/dL. The refe rence range was not used to interpret this result as normal/abnormal . MD OrlandoAspartate [id number] 19:58:05 Test Item Value Reference Range Interpretation Comments AST (test code = 19 U/L See_Comment [Automated message] The 4731) system which ge nerated this result transmit brandie reference range : <=40. The reference range was not used to interpr et this result as tremayne l/abnormal. MD OrlandoTotal [id number] 19:58:00 Test Item Value Reference Range Interpretation Comments Total Protein (test code = 7649) 6.6 g/dL 6.4-8.3 MD OrlandoAlkaline [id number] 19:57:58 Test Item Value Reference Range Interpretation Comments Alk Phos (test code = 4768) 67 U/L 40-129 MD [id number] 19:57:57 Test Item Value Reference Range Interpretation Comments ALT (test code = 16 U/L See_Comment [Automated message] The 1855) system which ge nerated this result transmit brandie reference range : <=41. The reference range was not used to interpr et this result as tremayne l/abnormal. MD OrlandoWnlsimcdV-[id number] 19:54:51 Test Item Value Reference Range Interpretation Comments D-Dimer (test code 0.32 See_Comment The cut o ff value for = 5419) exclusion of ve nous thromboembolism is <0.51 mcg/mL FEUs (fibrinoge n equivalent units). [Autom ated message] The system [employer] generated this result tra nsmitted reference range : 0.10 - 0.50 mcg/ml FEU. The reference range was not u sed to interpret this result as normal/abnormal . MD OrlandoCardiac [id number] 19:51:46 Test Item Value Reference Range Interpretation Comments CK (test code = 5206) 160 U/L 39-308 CK MB (test code = <2.0 See_Comment [Automat ed message] The 5779) system which ge nerated this result tra nsmitted reference range : <=10.4 ng/mL. The refe rence range was not u sed to interpret this result as normal/abnormal . Troponin T (test code 12 ng/L See_Comment < 19 ng/L = 9384) Sugge st retest at 3 to 6 hours later to rule out myocar dial infarction >= 1 9 to <=52 ng/L Possible myocardial inju ry. Suggest retest at 3 hours. - a change of < 20 ng/L, retest at 6 fatimah rs - a change of >= 20 ng/L, sug gestive of myocardial infarction > 5 2 ng/L Suggestive of m yocardial infarction Crit ical value will be reporte d when cTnT isf > 52 n g/L and only reported f or the first in a seri es. Hemolyzed speci mens with Hemolysis Index >100 (100 mg/dl or modera te hemolysis) may cause interferences a nd falsely low results. [ Automated message] The [employer] stem which generated this result transmitted ref erence range: <=18. Th e reference range was not used to interpr et this result as normal/abnormal . MD Orlando
[2021-07-12] MEDS ORDERED: CEFEPIME 1 GM/VIAL ONE (21:44)
[2021-07-12] MEDS ORDERED: ONDANSETRON 4 MG/2 ML VIAL ONE (21:44)
[2021-07-12] MEDS ORDERED: MORPHINE 4 MG/ML SYR ONE (21:44)
[2021-07-12] MEDS ORDERED: NA CHLORIDE 0.9% 100 ML ONE (21:45)
--- NOTE | 2021-07-12 21:48 | RAD REPORT ---
EXAM DESCRIPTION: RAD - Chest Single View - 07/12/2021 9:39 pm CLINICAL HISTORY: CHEST PAIN COMPARISON: Chest Single View dated 11/18/2017; Chest Single View dated 04/18/2017; Chest Single View dated 01/11/2016; CHEST SINGLE VIEW dated 12/31/2008 FINDINGS: Lines: None. Lungs: Fairly widespread pulmonary opacities are present in the left lung. Right lung is clear. Pleural: No significant pleural effusions or pneumothorax. Cardiac: Mild cardiomegaly. Bones: No acute fractures. Other: Bilateral hilar prominence. IMPRESSION: Airspace disease in the left lung may represent pneumonia, less likely asymmetric edema. Question right hilar adenopathy. Consider chest CT to further characterize these findings.
[2021-07-12 22:10] LABS: Absolute Lymphocytes (CBC) 0.9 K/uL (0.7-4.9); Basophils % 0.6 % (0-1.3); Lymphocytes % 5.5 % (15.3-44.8); MPV 6.8 fL (7.6-11.3); RBC Red Blood Cell Count 4.44 M/uL (4.33-5.43)
[2021-07-12 22:13] LABS: Protime INR 0.97
[2021-07-12 22:34] LABS: ALT/SGPT 41 U/L (12-78); AST/SGOT 32 U/L (15-37); Albumin 2.2 g/dL (3.4-5.0); Alkaline Phosphatase 105 U/L (45-117); BUN Blood Urea Nitrogen 11 mg/dL (7-18); Bicarbonate 25 mmol/L (21-32); Bilirubin Direct 0.1 mg/dL (0-0.2); Bilirubin Total 0.5 mg/dL (0.2-1.0); Glucose Level 263 mg/dL (74-106); NT PRO-BNP 72 pg/mL (<125); Potassium 3.9 mmol/L (3.5-5.1); Protein, Total 7.5 g/dL (6.4-8.2); Sodium Level 135 mmol/L (136-145); Troponin (Emerg Dept Use Only) < 0.02 ng/mL (0.0-0.045)
[2021-07-12 22:35] LABS: Magnesium 2.2 mg/dL (1.8-2.4)
[2021-07-12 22:45] LABS: Blood Morphology Comment NOT SEEN (NOT SEEN); Platelet Estimate ADEQ; Platelets, Giant OCC
[2021-07-12] MEDS ORDERED: NA CHLORIDE 0.9% 250 ML ONE (22:51)
[2021-07-12] MEDS ORDERED: VANCOMYCIN 1 GM/VIAL ONE (22:51)
--- NOTE | 2021-07-12 23:31 | EDPHYS ---
Physician Documentation [facility] Name: Andre Ward Age: 65 yrs Sex: Male : 1955 Arrival Date: 07/12/2021 Time: 21:04 Bed 2 Private MD: ED Physician Chaz Portillo HPI: 07/12 21:48 This 65 yrs old Black Male presents to ER via EMS with complaints of Fever cough and sp3 body aches. 21:48 65-year-old male with history of coronary artery disease, diabetes, hypertension, brain sp3 cancer with multiple metastases presents to the ED via EMS activated by family for 4 days of cough, body aches, subjective fever, shortness of breath. Patient currently denies headache, neck pain, chest pain, abdominal pain, nausea, vomiting, diarrhea, rash, any other ROS at this time. Limited history from patient secondary to baseline dementia.. Historical: - Allergies: 21:08 Lisinopril; as6 21:08 PENICILLINS; as6 21:08 metformin; as6 - Home Meds: 21:08 memantine 5 mg oral tab 1 tab once daily [Active]; hydrochlorothiazide 25 mg Oral tab 1 as6 tab once daily [Active]; diltiazem HCl 240 mg Oral CDER 1 cap once daily [Active]; fentanyl 12 mcg/hr Topical pt72 1 patch every 72 hours [Active]; megestrol 20 mg Oral tab 1 tab daily [Active]; atorvastatin 40 mg oral tab 1 tab once daily [Active]; famotidine 20 mg Oral tab 1 tab 2 times per day [Active]; - PMHx: 21:08 CAD; Diabetes - NIDDM; Hypertension; TIA; brain cancer; as6 - PSHx: 21:08 brain; as6 - Immunization history:: Adult Immunizations up to date, Client reports receiving the 2nd dose of the Covid vaccine, Last tetanus immunization: < 5 years ago Pneumococcal vaccine is up to date, Flu vaccine is up to date. - Social history:: Smoking status: Patient denies any tobacco usage or history of. ROS: 21:49 Unable to obtain ROS due to baseline dementia, Limited ROS documented in the HPI.. sp3 Exam: 21:50 Constitutional: This is a well developed, well nourished patient who is awake, alert, sp3 and in no acute distress. Head/Face: Normocephalic, atraumatic. Eyes: Pupils equal round and reactive to light, extra-ocular motions intact. Lids and lashes normal. Conjunctiva and sclera are non-icteric and not injected. Cornea within normal limits. Periorbital areas with no swelling, redness, or edema. Neck: Trachea midline, no thyromegaly or masses palpated, and no cervical lymphadenopathy. Supple, full range of motion without nuchal rigidity, or vertebral point tenderness. No Meningismus. Chest/axilla: Normal chest wall appearance and motion. Nontender with no deformity. No lesions are appreciated. Cardiovascular: Regular rate and rhythm with a normal S1 and S2. No gallops, murmurs, or rubs. Normal PMI, no JVD. No pulse deficits. Abdomen/GI: Soft, non-tender, with normal bowel sounds. No distension or tympany. No guarding or rebound. No evidence of tenderness throughout. Skin: Warm, dry with normal turgor. Normal color with no rashes, no lesions, and no evidence of cellulitis. 21:50 Respiratory: Active and productive cough. Scattered rhonchi noted. No baseline rales. Patient is not tachypneic and is not using sensory muscles or in a tripod position.. Vital Signs: 21:04 BP 125 / 76; Pulse 98; Resp 24 S; Temp 98.7(T); Pulse Ox 97% on R/A; Weight 58.51 kg as6 (R); Height 5 ft. 8 in. (172.72 cm) (R); Pain 8/10; 22:23 BP 118 / 75; Pulse 94; Resp 18 S; Pulse Ox 97% on R/A; as6 23:17 BP 123 / 75; Pulse 90; Resp 18 S; Pulse Ox 99% on R/A; as6 21:04 Body Mass Index 19.61 (58.51 kg, 172.72 cm) as6 MDM: 21:22 Patient medically screened. sp3 21:50 Data reviewed: vital signs, nurses notes, EMS record. ED course: . ED course: sp3 65-year-old male with multiple medical problems including cancer who presents with pneumonia type symptoms. Chest x-ray demonstrates likely left middle lobe infiltrate which matches clinical picture. Will start patient on cefepime and vancomycin and admit patient for IV antibiotics. Patient does not have SIRS criteria and is not in shock. I do not believe there is no overlying acute coronary syndrome or other critical abnormality at this time.. 23:25 ED course: Patient is Covid positive and lactate is elevated at 2.8. Will start IV sp3 fluids and admit patient to hospitalist service.. 07/12 21:23 Order name: Basic Metabolic Panel sp3 07/12 21:23 Order name: CBC with Diff sp3 07/12 21:23 Order name: LFT's sp3 07/12 21:23 Order name: Magnesium; Complete Time: 23:23 sp3 07/12 21:23 Order name: NT PRO-BNP; Complete Time: 23:23 sp3 07/12 21:23 Order name: PT-INR; Complete Time: 23:23 sp3 07/12 21:23 Order name: Troponin (emerg Dept Use Only); Complete Time: 23:23 sp3 07/12 21:23 Order name: COVID-19 SARS RT PCR (Document "Date of Onset" if Symptomatic); Complete sp3 Time: 23:23 07/12 21:23 Order name: Basic Metabolic Panel; Complete Time: 23:23 EDMS 07/12 21:23 Order name: CBC with Automated Diff; Complete Time: 23:23 EDMS 07/12 21:23 Order name: Liver (Hepatic) Function; Complete Time: 23:23 EDMS 07/12 21:38 Order name: Blood Culture Adult (2) sp3 07/12 21:52 Order name: Lactate; Complete Time: 23:23 sp3 07/12 22:12 Order name: Manual Differential; Complete Time: 23:23 EDMS 07/12 21:23 Order name: XRAY Chest (1 view); Complete Time: 23:23 3 07/13 07:35 Order name: Glucose, Ancillary Testing EDMS 07/13 09:17 Order name: CBC with Automated Diff EDMS 07/13 09:19 Order name: D-Dimer EDMS 07/13 09:53 Order name: Procalcitonin EDMS 07/13 10:03 Order name: C-Reactive Protein EDMS 07/13 10:03 Order name: Ferritin EDNC 07/13 10:14 Order name: Lactate EDNC 07/13 10:40 Order name: Hemoglobin A1c EDMS 07/13 11:01 Order name: Comprehensive Metabolic Panel [facility] 07/13 11:01 Order name: Phosphorus [facility] 07/13 11:01 Order name: Lipid Profile [facility] 07/13 11:01 Order name: T4 Free [facility] 07/13 11:01 Order name: Magnesium [facility] 07/13 11:01 Order name: Thyroid Stimulating Hormone [facility] 07/13 11:20 Order name: Glucose, Ancillary Testing [facility] 07/12 21:23 Order name: EKG; Complete Time: 21:23 sp3 07/12 21:23 Order name: Cardiac monitoring; Complete Time: 21:41 sp3 07/12 21:23 Order name: EKG - Nurse/Tech; Complete Time: 21:41 sp3 07/12 21:23 Order name: IV Saline Lock; Complete Time: 22:08 sp3 07/12 21:23 Order name: Labs collected and sent; Complete Time: 22:08 sp3 07/12 21:23 Order name: O2 Per Protocol; Complete Time: 21:41 sp3 07/12 21:23 Order name: O2 Sat Monitoring; Complete Time: 21:41 sp3 07/12 23:42 Order name: CT Chest For PE Angio ej Administered Medications: 22:07 Drug: Cefepime 2 grams Route: IVPB; Rate: 200 ml/hr; Infused Over: 30 mins; Site: right as6 antecubital; 23:15 Follow up: Response: No adverse reaction; IV Status: Completed infusion; IV Intake: [id number] 22:07 Drug: morphine 4 mg Route: IVP; Site: right antecubital; as6 23:16 Follow up: Response: No adverse reaction; RASS: Alert and Calm (0) as6 22:07 Drug: Zofran (Ondansetron) 4 mg Route: IVP; Site: right antecubital; as6 23:15 Follow up: Response: No adverse reaction as6 22:57 Drug: vancoMYCIN 1 grams Route: IVPB; Infused Over: 2 hrs; Site: right antecubital; as6 07/13 00:00 Drug: NS 0.9% 1000 ml Route: IV; Rate: 1 bolus; Site: right antecubital; as6 Disposition Summary: 07/12/21 23:30 Hospitalization Ordered Hospitalization Status: Inpatient Admission sp3 Provider: Almaz Howe sp3 Condition: Stable sp3 Problem: new sp3 Symptoms: are unchanged sp3 Bed/Room Type: Standard sp3 Location: Telemetry/MedSurg (Inpatient)(07/13/21 12:16) eb Room Assignment: 418(07/13/21 12:16) eb Diagnosis - Pneumonia, unspecified organism sp3 - Pneumonia due to SARS-associated coronavirus sp3 - SARS-associated coronavirus as the cause of diseases classified elsewhere sp3 Forms: - Medication Reconciliation Form sp3 - SBAR form sp3 Signatures: Dispatcher [employer] EDNadia Bazzi RN RN Merry Blank Setul, MD MD sp3 Vinnie Lang RN RN as6 Corrections: (The following items were deleted from the chart) 07/12 23:43 23:30 Telemetry/MedSurg (Inpatient) sp3 mw 23:43 23:30 sp3 mw 07/13 12:16 12 23:43 [facility] ER HOLD mw eb 07/13 12:16 07/12 23:43 ERHOLD- mw eb
--- NOTE | 2021-07-12 23:31 | ER ---
Nurse's Notes [facility] Name: Andre Ward Age: 65 yrs Sex: Male : 1955 Arrival Date: 07/12/2021 Time: 21:04 Bed 2 Private MD: Diagnosis: Pneumonia, unspecified organism;Pneumonia due to SARS-associated coronavirus;SARS-associated coronavirus as the cause of diseases classified elsewhere Presentation: 07/12 21:04 Chief complaint: EMS states: pt is experiencing generalized body aches, cough, chest as6 pain from coughing. Coronavirus screen: At this time, the client does not indicate any symptoms associated with coronavirus-19. Ebola Screen: No symptoms or risks identified at this time. Initial Sepsis Screen: Does the patient meet any 2 criteria? No. Patient's initial sepsis screen is negative. Does the patient have a suspected source of infection? No. Patient's initial sepsis screen is negative. Risk Assessment: Do you want to hurt yourself or someone else? Patient reports no desire to harm self or others. Onset of symptoms was July 10, 2021. Care prior to arrival: Glucose check: 320. 21:04 Method Of Arrival: EMS: [facility] as6 21:04 Acuity: KERRY 3 as6 Historical: - Allergies: 21:08 Lisinopril; as6 21:08 PENICILLINS; as6 21:08 metformin; as6 - Home Meds: 21:08 memantine 5 mg oral tab 1 tab once daily [Active]; hydrochlorothiazide 25 mg Oral tab 1 as6 tab once daily [Active]; diltiazem HCl 240 mg Oral CDER 1 cap once daily [Active]; fentanyl 12 mcg/hr Topical pt72 1 patch every 72 hours [Active]; megestrol 20 mg Oral tab 1 tab daily [Active]; atorvastatin 40 mg oral tab 1 tab once daily [Active]; famotidine 20 mg Oral tab 1 tab 2 times per day [Active]; - PMHx: 21:08 CAD; Diabetes - NIDDM; Hypertension; TIA; brain cancer; as6 - PSHx: 21:08 brain; as6 - Immunization history:: Adult Immunizations up to date, Client reports receiving the 2nd dose of the Covid vaccine, Last tetanus immunization: < 5 years ago Pneumococcal vaccine is up to date, Flu vaccine is up to date. - Social history:: Smoking status: Patient denies any tobacco usage or history of. Screenin:17 Abuse screen: Denies threats or abuse. Nutritional screening: No deficits noted. as6 Tuberculosis screening: No symptoms or risk factors identified. Fall Risk None identified. Assessment: 21:15 General: Appears in no apparent distress. uncomfortable, Behavior is calm, cooperative. as6 Pain: Complains of pain in entire body, rib/chest Quality of pain is described as aching. Neuro: Level of Consciousness is awake, alert, obeys commands, Oriented to person, place, time, situation. Cardiovascular: Heart tones S1 S2 present Capillary refill < 3 seconds Patient's skin is warm and dry. Respiratory: Reports cough that is Airway is patent Trachea midline Respiratory effort is even, unlabored, Respiratory pattern is regular, symmetrical, Breath sounds are clear bilaterally. Derm: Skin is intact. 22:24 Reassessment: family now at bedside. as6 23:17 Reassessment: Patient appears in no apparent distress at this time. as6 07/13 12:50 Reassessment: Report called to Alessia Salas RN. al4 Vital Signs: 07/12 21:04 BP 125 / 76; Pulse 98; Resp 24 S; Temp 98.7(T); Pulse Ox 97% on R/A; Weight 58.51 kg as6 (R); Height 5 ft. 8 in. (172.72 cm) (R); Pain 8/10; 22:23 BP 118 / 75; Pulse 94; Resp 18 S; Pulse Ox 97% on R/A; as6 23:17 BP 123 / 75; Pulse 90; Resp 18 S; Pulse Ox 99% on R/A; as6 21:04 Body Mass Index 19.61 (58.51 kg, 172.72 cm) as6 ED Course: 21:04 Patient arrived in ED. as6 21:08 Triage completed. as6 21:10 Chaz Portillo MD is Attending Physician. sp3 21:15 Arm band placed on. as6 21:17 Placed in gown. Bed in low position. Call light in reach. Side rails up X2. Cardiac as6 monitor on. Pulse ox on. NIBP on. Warm blanket given. Pillow given. 21:25 Vinnie Lang RN is Primary Nurse. as6 21:40 XRAY Chest (1 view) In Process Unspecified. EDMS 22:08 COVID-19 SARS RT PCR (Document "Date of Onset" if Symptomatic) Sent. as6 22:09 Inserted saline lock: 20 gauge in right antecubital area, using aseptic technique. oe Blood collected. 23:29 Almaz Howe MD is Hospitalizing Provider. sp3 07/13 12:49 No provider procedures requiring assistance completed. Patient admitted, IV remains in al4 place. Administered Medications: 07/12 22:07 Drug: Cefepime 2 grams Route: IVPB; Rate: 200 ml/hr; Infused Over: 30 mins; Site: right as6 antecubital; 23:15 Follow up: Response: No adverse reaction; IV Status: Completed infusion; IV Intake: [id number] 22:07 Drug: morphine 4 mg Route: IVP; Site: right antecubital; as6 23:16 Follow up: Response: No adverse reaction; RASS: Alert and Calm (0) as6 22:07 Drug: Zofran (Ondansetron) 4 mg Route: IVP; Site: right antecubital; as6 23:15 Follow up: Response: No adverse reaction as6 22:57 Drug: vancoMYCIN 1 grams Route: IVPB; Infused Over: 2 hrs; Site: right antecubital; as6 07/13 00:00 Drug: NS 0.9% 1000 ml Route: IV; Rate: 1 bolus; Site: right antecubital; as6 Intake: 16 23:15 IV: 50ml; Total: 50ml. as6 Outcome: 23:30 Decision to Hospitalize by Provider. sp3 07/13 12:49 Admitted to Med/surg accompanied by tech, Report called to Alessia Salas RN al4 Condition: stable Instructed on the need for admit. 13:00 Patient left the ED. al4 Signatures: Dispatcher [employer] EDKY Darian Marie Setul, MD MD sp3 Vinnie Lang, CATERINA RN as6 Christopher Ames al4 Corrections: (The following items were deleted from the chart) 12:51 12:49 Admitted to Med/surg accompanied by tech, al4 al4
[2021-07-12] MEDS ORDERED: NA CHLORIDE 0.9% 1,000 ML ONE (23:59)
--- NOTE | 2021-07-13 00:25 | P.HP ---
Certification for Inpatient Patient admitted to: Inpatient With expected LOS: >2 Midnights Patient will require the following post-hospital care: None Practitioner: I am a practitioner with admitting privileges, knowledge of patient current condition, hospital course, and medical plan of care. Services: Services provided to patient in accordance with Admission requirements found in Title 42 Section 412.3 of the Code of Federal Regulations Patient History Date of Service: 07/12/21 Reason for admission: pneumonia History of Present Illness: Mr. Ward is a 65 yo M with CAD, DM, HTN, dementia, metastatic brain cancer who presents with four days of fever, cough, SOB and malaise. He has not had an appetite. Denies nausea, vomiting, and diarrhea. Patient continued to get worse, so family called EMS. COVID test is positive. Patient is comfortable on room air. Received IV vancomycin, cefepime and fluids in the ED. CTPE pending. History of dementia, so unable to obtain a full history. Currently not receiving chemotherapy or radiation. Patient of [facility] for oncology follow-up. WBC 17.1 Lactate 2.8 CXR IMPRESSION: Airspace disease in the left lung may represent pneumonia, less likely asymmetric edema. Question right hilar adenopathy. Consider chest CT to further characterize these findings. Allergies lisinopril Allergy (Verified 11/19/17 03:40) Unknown Penicillins Allergy (Verified 11/19/17 03:40) Unknown Pe Allergy (Uncoded 01/11/16 09:12) Unknown Home Medications: Dextroamphetamine/Amphetamine [Adderall 30 mg Tablet] 30 mg PO DAILY 11/19/17 Metformin ER [Glucophage ER] 500 mg PO BID 11/19/17 Aspirin [Aspirin EC 81 MG] 162 mg PO DAILY #30 tablet. 11/20/17 Atorvastatin Calcium [Lipitor] 80 mg PO BEDTIME #30 tab 11/20/17 glyBURIDE [Glyburide] 5 mg PO DAILY #30 tablet 11/20/17 - Past Medical/Surgical History Diabetic: Yes -: HTN -: DM -: CAD -: metastatic brain cancer -: dementia -: Right testicle removed -: Piece of metal removed from right leg - Family History Mother -: Hypertension, Diabetes Notes: [place] Father -: Heart disease Notes: heart attack Brother -: Hypertension, Diabetes Sister -: Hypertension, Diabetes - Social History Smoking Status: Never smoker Alcohol use: No CD- Drugs: Yes Caffeine use: Yes Place of Residence: Home Review of Systems General: Malaise, As per HPI Eyes: Unremarkable ENT: Unremarkable Respiratory: Cough, Shortness of Breath Cardiovascular: Unremarkable Gastrointestinal: Unremarkable Genitourinary: Unremarkable Musculoskeletal: Unremarkable Integumentary: Unremarkable Neurological: Unremarkable Lymphatics: Unremarkable Physical Examination - Physical Exam General: Alert, In no apparent distress, Cooperative HEENT: Atraumatic, PERRLA, Mucous membr. moist/pink, EOMI, Sclerae nonicteric Neck: Supple, 2+ carotid pulse no bruit, No LAD, Without JVD or thyroid abnormality Respiratory: Diminished Cardiovascular: No edema, Regular rate/rhythm, Normal S1 S2 Gastrointestinal: Normal bowel sounds, No tenderness Musculoskeletal: No tenderness Integumentary: Skin breakdown, Skin lesion Neurological: Normal speech, Normal strength at 5/5 x4 extr, Normal tone, Dementia Lymphatics: No axilla or inguinal lymphadenopathy - Studies Laboratory Data (last 24 hrs) 07/12/21 21:54: PT 11.1, INR 0.97 07/12/21 21:54: WBC 17.10 H, Hgb 13.0 L, Hct 40.0, Plt Count 384 07/12/21 21:54: Sodium 135 L, Potassium 3.9, BUN 11, Creatinine 0.82, Glucose 263 H, Magnesium 2.2, Total Bilirubin 0.5, AST 32, ALT 41, Alkaline Phosphatase 105 Assessment and Plan - Problems (Diagnosis) (1) COVID Current Visit: Yes Status: Acute (2) Pneumonia Current Visit: Yes Status: Acute Qualifiers: Pneumonia type: due to unspecified organism Laterality: unspecified laterality Lung location: unspecified part of lung Qualified Code(s): J18.9 - Pneumonia, unspecified organism (3) CAD (coronary artery disease) Current Visit: Yes Status: Chronic Qualifiers: Coronary Disease-Associated Artery/Lesion type: unspecified vessel or lesion type [place] vs. transplanted heart: [place] heart Associated angina: without angina Qualified Code(s): I25.10 - Atherosclerotic heart disease of [place] coronary artery without angina pectoris (4) Dementia Current Visit: Yes Status: Chronic Qualifiers: Dementia type: unspecified type Dementia behavioral disturbance: without behavioral disturbance Qualified Code(s): F03.90 - Unspecified dementia without behavioral disturbance (5) Brain cancer Current Visit: Yes Status: Chronic Qualifiers: Malignant neoplasm of brain location: unspecified location Qualified Code(s): C71.9 - Malignant neoplasm of brain, unspecified (6) Hypertension Onset Date: 11/19/17 Current Visit: No Status: Chronic Qualifiers: Hypertension type: essential hypertension Qualified Code(s): I10 - Es sential (primary) hypertension - Plan CTPE pending continue IV vancomycin and cefepime, IV fluids continue IV steroids, COVID supplements, O2 as needed daily CRP, procal, and lactate sliding scale insulin and accuchecks, A1c pending pain management as needed antipyretics as needed hydralazine PRN for BP spikes reconcile and continue home medications DVT ppx Discharge Plan: Home Plan to discharge in: 48 Hours - Advance Directives Does patient have a Living Will: No Does patient have a Durable POA for Healthcare: No - Code Status/Comfort Care Code Status Assessed: Yes (full code ) Critical Care: No Time Spent Managing Pts Care (In Minutes): 70
[2021-07-13] MEDS ORDERED: ONDANSETRON 4 MG/2 ML VIAL IV PRN (03:24)
[2021-07-13] MEDS: NA CHLORIDE 0.9% 1,000 ML IV SCH ×2 (03:24→13:35)
[2021-07-13] MEDS ORDERED: HYDRALAZINE HCL 20 MG/ML VIAL IV PRN (03:24)
[2021-07-13] MEDS ORDERED: BENZONATATE 100 MG CAP PO PRN (03:24)
[2021-07-13] MEDS ORDERED: ACETAMINOPHEN 500 MG TAB PO PRN (03:24)
[2021-07-13] MEDS ORDERED: MELATONIN 5 MG TABLET PO PRN (03:24)
[2021-07-13] MEDS ORDERED: NA CHLORIDE 0.9% 1,000 ML ONE (05:24)
[2021-07-13] MEDS: INSULIN -REGULAR HUMAN 50 UNIT/0.5 ML ML SQ SCH ×4 (07:30→20:39)
[2021-07-13] MEDS ORDERED: MORPHINE 2 MG/ML SYR ONE (07:31)
[2021-07-13] MEDS ORDERED: INSULIN -REGULAR HUMAN 50 UNIT/0.5 ML ML ONE ×2 (07:33→11:34)
[2021-07-13] MEDS: MORPHINE 2 MG/ML SYR IV PRN ×3 (07:54→20:13)
[2021-07-13 08:27] VITALS: BMI 19.5
[2021-07-13] MEDS ORDERED: ASCORBIC ACID 500 MG TABLET ONE (08:43)
[2021-07-13] MEDS ORDERED: THIAMINE HCL 100 MG TABLET ONE (08:43)
[2021-07-13] MEDS ORDERED: ZINC SULFATE 220 MG CAP ONE (08:44)
[2021-07-13] MEDS ORDERED: VITAMIN D 1000 UNIT TAB ONE ×2 (08:44→09:19)
[2021-07-13] MEDS ORDERED: METHYLPREDNISOLONE 40 MG INJ ONE (08:44)
[2021-07-13] MEDS ORDERED: ASPIRIN EC 81 MG TAB PO ONE (08:44)
[2021-07-13] MEDS ORDERED: FAMOTIDINE 20 MG TAB ONE (08:45)
[2021-07-13] MEDS: FAMOTIDINE 20 MG TAB PO SCH ×2 (09:00→20:42)
[2021-07-13] MEDS: METHYLPREDNISOLONE 125 MG INJ IV SCH ×2 (09:00→20:41)
[2021-07-13] MEDS: ZINC SULFATE 220 MG CAP PO SCH (09:00)
[2021-07-13] MEDS: CEFEPIME 2 GM in NA CHLORIDE 0.9% 100 ML IV SCH ×2 (09:00→20:40)
[2021-07-13] MEDS: ASCORBIC ACID 500 MG TABLET PO SCH ×4 (09:00→20:42)
[2021-07-13] MEDS: VITAMIN D 1000 UNIT TAB PO SCH (09:00)
[2021-07-13] MEDS: ASPIRIN EC 81 MG TAB PO SCH (09:00)
[2021-07-13] MEDS: THIAMINE HCL 100 MG TABLET PO SCH (09:00)
[2021-07-13 09:07] LABS: Basophils % 0.1 % (0-1.3); Hematocrit 37.3 % (39.6-49.0); Lymphocytes % 4.4 % (15.3-44.8); MPV 6.7 fL (7.6-11.3); RBC Red Blood Cell Count 4.16 M/uL (4.33-5.43)
[2021-07-13 10:03] LABS: Ferritin 2037.4 ng/mL (26-388)
--- NOTE | 2021-07-13 10:20 | EKG ---
Test Date: 2021-07-12 Test Time: 21:34:10 Sas Sql Developer: MEASUREMENT RESULTS: Intervals: Rate: 95 NE: 134 QRSD: 84 QT: 320 QTc: 402 [place]: P: 42 NE: 134 QRS: 11 T: 32 INTERPRETIVE STATEMENTS: Normal sinus rhythm Moderate voltage criteria for LVH, may be normal variant Nonspecific T wave abnormality Abnormal ECG Compared to ECG 11/18/2017 20:16:33 Left ventricular hypertrophy now present T-wave abnormality now present Electronically Signed On 07-13-21 10:19:31 ICT PROGRAMMER by Terrence Bradford
[2021-07-13 11:01] LABS: ALT/SGPT 30 U/L (12-78); AST/SGOT 15 U/L (15-37); Albumin 1.8 g/dL (3.4-5.0); Alkaline Phosphatase 91 U/L (45-117); BUN Blood Urea Nitrogen 10 mg/dL (7-18); Bicarbonate 23 mmol/L (21-32); Bilirubin Total 0.4 mg/dL (0.2-1.0); Glucose Level 214 mg/dL (74-106); HDL Cholesterol 44 mg/dL (40-60); LDL Cholesterol, Calculated 44 (<130); Magnesium 2.1 mg/dL (1.8-2.4); Phosphorus 2.7 mg/dL (2.5-4.9); Potassium 3.9 mmol/L (3.5-5.1); Protein, Total 6.6 g/dL (6.4-8.2); Sodium Level 137 mmol/L (136-145); Thyroid Stimulating Hormone 0.216 uIU/mL (0.360-3.740)
[2021-07-13] MEDS: VANCOMYCIN 1 GM in NA CHLORIDE 0.9% 250 ML IVPB SCH (16:28)
[2021-07-13] MEDS: RIVAROXABAN 20 MG TABLET PO SCH (16:30)
[2021-07-13] MEDS ORDERED: RIVAROXABAN 10 MG TABLET PO SCH (17:00)
[2021-07-13 18:04] LABS: Urine Appearance CLEAR (Clear); Urine Bilirubin NEGATIVE (Negative); Urine Blood NEGATIVE (Negative); Urine Color YELLOW (Yellow); Urine Glucose 3+ (Negative); Urine Protein 1+ (Negative); Urine Specific Gravity >=1.030 (1.005-1.030)
[2021-07-13 18:16] LABS: Urine Microscopic Reflex ORDER UMIC
[2021-07-13 19:31] LABS: Urine Bacteria <20 /HPF (NONE SEEN); Urine RBC NONE SEEN /HPF (NONE SEEN)
[2021-07-14] MEDS: MORPHINE 2 MG/ML SYR IV PRN ×6 (00:11→19:44)
[2021-07-14] MEDS: NA CHLORIDE 0.9% 1,000 ML IV SCH (03:51)
[2021-07-14 06:18] LABS: Absolute Lymphocytes (CBC) 0.9 K/uL (0.7-4.9); Basophils % 0.2 % (0-1.3); Hematocrit 31.5 % (39.6-49.0); Lymphocytes % 5.6 % (15.3-44.8); RBC Red Blood Cell Count 3.51 M/uL (4.33-5.43)
[2021-07-14 06:46] LABS: ALT/SGPT 27 U/L (12-78); AST/SGOT 19 U/L (15-37); Albumin 1.4 g/dL (3.4-5.0); Alkaline Phosphatase 78 U/L (45-117); BUN Blood Urea Nitrogen 9 mg/dL (7-18); Bicarbonate 22 mmol/L (21-32); Bilirubin Total 0.4 mg/dL (0.2-1.0); Glucose Level 283 mg/dL (74-106); Potassium 3.6 mmol/L (3.5-5.1); Protein, Total 5.6 g/dL (6.4-8.2); Sodium Level 136 mmol/L (136-145)
[2021-07-14] MEDS: INSULIN -REGULAR HUMAN 50 UNIT/0.5 ML ML SQ SCH ×4 (08:46→20:57)
[2021-07-14] MEDS: ASCORBIC ACID 500 MG TABLET PO SCH ×4 (08:47→20:58)
[2021-07-14] MEDS: CEFEPIME 2 GM in NA CHLORIDE 0.9% 100 ML IV SCH ×2 (08:47→20:56)
[2021-07-14] MEDS: VITAMIN D 1000 UNIT TAB PO SCH (08:47)
[2021-07-14] MEDS: THIAMINE HCL 100 MG TABLET PO SCH (08:47)
[2021-07-14] MEDS: METHYLPREDNISOLONE 125 MG INJ IV SCH ×2 (08:47→20:58)
[2021-07-14] MEDS: ASPIRIN EC 81 MG TAB PO SCH (08:47)
[2021-07-14] MEDS: FAMOTIDINE 20 MG TAB PO SCH ×2 (08:47→20:58)
[2021-07-14] MEDS: ZINC SULFATE 220 MG CAP PO SCH (08:48)
[2021-07-14] MEDS ORDERED: POTASSIUM CL SA 10 MEQ TAB PO ONE (09:00)
[2021-07-14] MEDS: VANCOMYCIN 1 GM in NA CHLORIDE 0.9% 250 ML IVPB SCH (11:00)
--- NOTE | 2021-07-14 11:49 | P.PN ---
Subjective Date of Service: 07/14/21 Chief Complaint: pneumonia Subjective: No new changes, Tolerating diet (Feels better, cough improving) Physical Examination - Vital Signs Temperature: 97.7 F Blood Pressure: 148/84 Pulse: 103 Respirations: 20 Pulse Ox (%): 93 - Physical Exam General: Alert, In no apparent distress, Oriented x3 HEENT: Atraumatic, Normocephalic, PERRLA Neck: 2+ carotid pulse no bruit, JVD not distended Respiratory: Clear to auscultation bilaterally, Normal air movement, Diminished Cardiovascular: Normal pulses, Regular rate/rhythm, Normal S1 S2 Gastrointestinal: Normal bowel sounds, Soft and benign, Non-distended Musculoskeletal: No clubbing, No swelling Neurological: Normal speech, Normal strength at 5/5 x4 extr, Normal tone Assessment And Plan - Current Problems (Diagnosis) (1) COVID Current Visit: Yes Status: Acute (2) Pneumonia Current Visit: Yes Status: Acute Qualifiers: Pneumonia type: due to unspecified organism Laterality: unspecified laterality Lung location: unspecified part of lung Qualified Code(s): J18.9 - Pneumonia, unspecified organism (3) Brain cancer Current Visit: Yes Status: Chronic Qualifiers: Malignant neoplasm of brain location: unspecified location Qualified Code(s): C71.9 - Malignant neoplasm of brain, unspecified (4) CAD (coronary artery disease) Current Visit: Yes Status: Chronic Qualifiers: Coronary Disease-Associated Artery/Lesion type: unspecified vessel or lesion type [place] vs. transplanted heart: [place] heart Associated angina: without angina Qualified Code(s): I25.10 - Atherosclerotic heart disease of [place] coronary artery without angina pectoris (5) Dementia Current Visit: Yes Status: Chronic Qualifiers: Dementia type: unspecified type Dementia behavioral disturbance: without behavioral disturbance Qualified Code(s): F03.90 - Unspecified dementia without behavioral disturbance (6) TIA (transient ischemic attack) Onset Date: 11/19/17 Current Visit: No Status: Acute Qualifiers: Transient cerebral ischemia type: unspecified Qualified Code(s): G45.9 - Transient cerebral ischemic attack, unspecified (7) Hypertension Onset Date: 11/19/17 Current Visit: No Status: Chronic Qualifiers: Hypertension type: essential hypertension Qualified Code(s): I10 - Essential (primary) hypertension (8) Type 2 diabetes mellitus Onset Date: 11/19/17 Current Visit: No Status: Chronic Qualifiers: 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 insulin use: without snf use Diabetes mellitus complication status: without complication Qualified Code(s): E11.9 - Type 2 diabetes mellitus without complications - Plan Clinically improving Both given elevated D-dimer will obtain CT to rule out PE Continue Vanco and cefepime, WBC trending down Tolerating room air well Since elevated WBC, no urgent need for steroid for Covid management Continue Covid management with droplet isolation, continue zinc sulfate sliding scale insulin and accuchecks, A1c pending pain management as needed antipyretics as needed Elevated blood pressure, resume home amlodipine,hydralazine PRN for BP spikes reconcile and continue home medications DVT ppx
[2021-07-14] MEDS: AMLODIPINE 10 MG TAB PO SCH (12:38)
[2021-07-14] MEDS: INSULIN GLARGINE 100 UNIT/ML SQ SCH ×2 (12:39→20:57)
--- NOTE | 2021-07-14 14:57 | RAD REPORT ---
EXAM DESCRIPTION: CT - Chest For Pe Angio - 07/14/2021 2:34 pm CLINICAL HISTORY: Chest pain. r/o PE, elevated dimer and SOB COMPARISON: Thorax Wo Con dated 07/13/2021 TECHNIQUE: CT angiogram of the pulmonary arteries was performed with MIP. All CT scans are performed using dose optimization technique as appropriate and may include automated exposure control or mA/KV adjustment according to patient size. FINDINGS: No evidence of pulmonary thromboembolism. No acute aortic finding demonstrated. Airspace infiltrate is present both lung bases as well as the lingula most likely representing bilate ral pneumonia and appearing mildly progressive since yesterday's study. There is right hilar/ suprahi lar solid mass again noted, unchanged yesterday's examination. Large bulky adenopathy in the mediasti num bilateral hilar regions also again noted, unchanged from prior study. No significant pericardial or pleural fluid. No lytic or blastic bone lesion is seen. IMPRESSION: No evidence of pulmonary thromboembolism. Right hilar/suprahilar mass lesion with significant bulky adenopathy in the mediastinum and hilum ramez ears unchanged since yesterday's study. This is most likely related to malignancy. Mild worsening bilateral air space opacities present likely indicating mild worsening pneumonia.
[2021-07-14] MEDS: RIVAROXABAN 20 MG TABLET PO SCH (16:54)
--- NOTE | 2021-07-14 17:02 | EKG ---
Test Date: 2021-07-12 Test Time: 21:34:47 Skatesman: MEASUREMENT RESULTS: Intervals: Rate: 90 NV: 138 QRSD: 82 QT: 384 QTc: 469 [place]: P: 41 NV: 138 QRS: 10 T: 0 INTERPRETIVE STATEMENTS: Normal sinus rhythm Minimal voltage criteria for LVH, may be normal variant Nonspecific ST and T wave abnormality Prolonged QT Abnormal ECG Compared to ECG 07/12/2021 21:34:10 ST (T wave) deviation now present Prolonged QT interval now present T-wave abnormality no longer present Electronically Signed On 07-14-21 17:00:08 POWDER LINE REPAIRER by Terrence Bradford
[2021-07-14] MEDS: levETIRAcetam 500 MG TAB PO SCH (20:56)
[2021-07-14] MEDS: [UNRECOGNIZED DRUG - OTHER] PO SCH (21:00)
[2021-07-14] MEDS: FIBER PO SCH (21:00)
[2021-07-14] MEDS: NUT TX GLUC INTOL LF SOY PO SCH (21:00)
[2021-07-14] MEDS ORDERED: VANCOMYCIN 1 GM in NA CHLORIDE 0.9% 250 ML IVPB SCH (23:30)
[2021-07-15] MEDS: MORPHINE 2 MG/ML SYR IV PRN ×4 (03:10→11:00)
[2021-07-15 03:53] VITALS: O2SAT 95
[2021-07-15 04:29] VITALS: BP 120/65
[2021-07-15 04:59] VITALS: TEMP 97.2
[2021-07-15 05:12] LABS: Absolute Lymphocytes (CBC) 0.7 K/uL (0.7-4.9); Basophils % 0.3 % (0-1.3); Hematocrit 34.5 % (39.6-49.0); Lymphocytes % 4.6 % (15.3-44.8); RBC Red Blood Cell Count 3.85 M/uL (4.33-5.43)
[2021-07-15 05:48] LABS: ALT/SGPT 30 U/L (12-78); AST/SGOT 23 U/L (15-37); Albumin 1.5 g/dL (3.4-5.0); Alkaline Phosphatase 83 U/L (45-117); BUN Blood Urea Nitrogen 9 mg/dL (7-18); Bicarbonate 23 mmol/L (21-32); Bilirubin Total 0.5 mg/dL (0.2-1.0); Glucose Level 141 mg/dL (74-106); Magnesium 2.1 mg/dL (1.8-2.4); Phosphorus 2.2 mg/dL (2.5-4.9); Potassium 3.5 mmol/L (3.5-5.1); Protein, Total 5.9 g/dL (6.4-8.2); Sodium Level 137 mmol/L (136-145)
--- NOTE | 2021-07-15 07:51 | P.PN ---
Subjective Date of Service: 07/15/21 Chief Complaint: pneumonia Subjective: No new changes (Still tolerating room air Complain of substernal congestion cough) Physical Examination - Vital Signs Temperature: 97.2 F Blood Pressure: 120/65 Pulse: 57 Respirations: 13 Pulse Ox (%): 93 - Physical Exam General: Alert, In no apparent distress, Oriented x3 HEENT: Atraumatic, Normocephalic, PERRLA Neck: 2+ carotid pulse no bruit, JVD not distended, No Thyromegaly Respiratory: Normal air movement, Diminished Cardiovascular: Normal pulses, Regular rate/rhythm, Normal S1 S2 Gastrointestinal: Normal bowel sounds, Soft and benign, Non-distended Musculoskeletal: No clubbing, No swelling Neurological: Normal gait, Normal speech, Normal strength at 5/5 x4 extr Assessment And Plan - Current Problems (Diagnosis) (1) COVID Current Visit: Yes Status: Acute (2) Pneumonia Current Visit: Yes Status: Acute Qualifiers: Pneumonia type: due to unspecified organism Laterality: unspecified laterality Lung location: unspecified part of lung Qualified Code(s): J18.9 - Pneumonia, unspecified organism (3) Brain cancer Current Visit: Yes Status: Chronic Qualifiers: Malignant neoplasm of brain location: unspecified location Qualified Code(s): C71.9 - Malignant neoplasm of brain, unspecified (4) CAD (coronary artery disease) Current Visit: Yes Status: Chronic Qualifiers: Coronary Disease-Associated Artery/Lesion type: unspecified vessel or lesion type [place] vs. transplanted heart: [place] heart Associated angina: without angina Qualified Code(s): I25.10 - Atherosclerotic heart disease of [place] coronary artery without angina pectoris (5) Dementia Current Visit: Yes Status: Chronic Qualifiers: Dementia type: unspecified type Dementia behavioral disturbance: without behavioral disturbance Qualified Code(s): F03.90 - Unspecified dementia without behavioral disturbance (6) TIA (transient ischemic attack) Onset Date: 11/19/17 Current Visit: No Status: Acute Qualifiers: Transient cerebral ischemia type: unspecified Qualified Code(s): G45.9 - Transient cerebral ischemic attack, unspecified (7) Hypertension Onset Date: 11/19/17 Current Visit: No Status: Chronic Qualifiers: Hypertension type: essential hypertension Qualified Code(s): I10 - Essential (primary) hypertension (8) Type 2 diabetes mellitus Onset Date: 11/19/17 Current Visit: No Status: Chronic Qualifiers: Diabetes mellitus nursing home insulin use: without termination clerk use Diabetes mellitus complication status: without complication Qualified Code(s): E11.9 - Type 2 diabetes mellitus without complications - Plan Still clinically improving Mild elevated WBC marginally today, due to steroids CT shows no evidence of PE with noted right hilar mass with lymphadenopathy worsening pneumonic infiltrates -Continue antibiotics We will DC vancomycin, continue cefepime and add Levaquin -If improving WBC in a.m. we will plan for discharge home We will start weaning steroids today Continue Covid management with droplet isolation, continue zinc sulfate -sliding scale insulin and accuchecks, A1c pending -pain management as needed -Continue antipyretics as needed Improving elevated blood pressure, continue amlodipine,hydralazine PRN for BP spikes -Continue DVT ppx
--- NOTE | 2021-07-15 08:00 | P.DS ---
Admission Date: 07/12/21 Discharge Date: 07/15/21 Reason for Admission: pneumonia - Problems (1) COVID Current Visit: Yes Status: Acute (2) Pneumonia Current Visit: Yes Status: Acute Qualifiers: Pneumonia type: due to unspecified organism Laterality: unspecified laterality Lung location: unspecified part of lung Qualified Code(s): J18.9 - Pneumonia, unspecified organism (3) Brain cancer Current Visit: Yes Status: Chronic Qualifiers: Malignant neoplasm of brain location: unspecified location Qualified Code(s): C71.9 - Malignant neoplasm of brain, unspecified (4) CAD (coronary artery disease) Current Visit: Yes Status: Chronic Qualifiers: Coronary Disease-Associated Artery/Lesion type: unspecified vessel or lesion type [place] vs. transplanted heart: [place] heart Associated angina: without angina Qualified Code(s): I25.10 - Atherosclerotic heart disease of [place] coronary artery without angina pectoris (5) Dementia Current Visit: Yes Status: Chronic Qualifiers: Dementia type: unspecified type Dementia behavioral disturbance: without behavioral disturbance Qualified Code(s): F03.90 - Unspecified dementia without behavioral disturbance (6) TIA (transient ischemic attack) Onset Date: 11/19/17 Current Visit: No Status: Acute Qualifiers: Transient cerebral ischemia type: unspecified Qualified Code(s): G45.9 - Transient cerebral ischemic attack, unspecified (7) Hypertension Onset Date: 11/19/17 Current Visit: No Status: Chronic Qualifiers: Hypertension type: essential hypertension Qualified Code(s): I10 - Essential (primary) hypertension (8) Type 2 diabetes mellitus Onset Date: 11/19/17 Current Visit: No Status: Chronic Qualifiers: Diabetes mellitus care home insulin use: without care home use Diabetes mellitus complication status: without complication Qualified Code(s): E11.9 - Type 2 diabetes mellitus without complications (9) Mass of right lung Current Visit: Yes Status: Acute Brief History of Present Illness: istory of Present Illness: Mr. Ward is a 65 yo M with CAD, DM, HTN, dementia, metastatic brain cancer who presents with four days of fever, cough, SOB and malaise. He has not had an appetite. Denies nausea, vomiting, and diarrhea. Patient continued to get worse, so family called EMS. COVID test is positive. Patient is comfortable on room air. Received IV vancomycin, cefepime and fluids in the ED. CTPE pending. History of dementia, so unable to obtain a full history. Currently not receiving chemotherapy or radiation. Patient of [facility] for oncology follow-up. WBC 17.1 Lactate 2.8 CXR IMPRESSION: Airspace disease in the left lung may represent pneumonia, less likely asymmetric edema. Question right hilar adenopathy. Consider chest CT to further characterize these findings. Allergies lisinopril Allergy (Verified 11/19/17 03:40) Unknown Penicillins Allergy (Verified 11/19/17 03:40) Unknown Pe Allergy (Uncoded 01/11/16 09:12) Unknown Hospital Course: 65-year-old male with history of brain cancer on chemotherapy at [facility] admitted for cough with shortness of breath. On admission he was noted with mild leukocytosis with WBC of 70 K. WBC subsequently worsened to 20 1K the next day. Patient was noted with Covid positive status. Patient chest x-ray shows evidence of bilateral infiltrates although worsening on the right side. He had a CT scan without contrast done with finding of right hilar mass and hilar lymphadenopathy as well as infiltrates. A follow-up CT shows no evidence of pulmonary embolism after noted elevated D-dimer. He was started on empirical antibiotic with cefepime and vancomycin. Patient subsequently was weaned off oxygen and tolerating room air well. He was also initiated on empirical steroids. His WBC continues to trend down. Patient will be discharged home today to continue follow-up at his oncology clinic Vital Signs/Physical Exam: Temp Pulse Resp BP Pulse Ox 97.2 F 57 13 120/65 93 07/15/21 07:50 07/15/21 07:50 07/15/21 07:50 07/15/21 07:50 07/15/21 07:50 General: In no apparent distress, Oriented x3 HEENT: Atraumatic, Normocephalic, PERRLA Respiratory: Clear to auscultation bilaterally, Normal air movement Cardiovascular: Normal pulses, Regular rate/rhythm, Normal S1 S2 Gastrointestinal: Normal bowel sounds, Soft and benign, Non-distended Musculoskeletal: No clubbing, No swelling Integumentary: No rashes, No breakdown Neurological: Normal speech, Normal strength at 5/5 x4 extr, Normal tone Laboratory Data at Discharge: WBC 15.30 K/uL (4.3-10.9) H 07/15/21 04:21 Hgb 11.2 g/dL (13.6-17.9) L 07/15/21 04:21 Hct 34.5 % (39.6-49.0) L 07/15/21 04:21 Plt Count 348 K/uL (152-406) 07/15/21 04:21 PT 11.1 SECONDS (9.5-12.5) 07/12/21 21:54 INR 0.97 07/12/21 21:54 Sodium 137 mmol/L (136-145) 07/15/21 04:21 Potassium 3.5 mmol/L (3.5-5.1) 07/15/21 04:21 BUN 9 mg/dL (7-18) 07/15/21 04:21 Creatinine 0.45 mg/dL (0.55-1.3) L 07/15/21 04:21 Glucose 141 mg/dL (74-106) H 07/15/21 04:21 Phosphorus 2.2 mg/dL (2.5-4.9) L 07/15/21 04:21 Magnesium 2.1 mg/dL (1.8-2.4) 07/15/21 04:21 Total Bilirubin 0.5 mg/dL (0.2-1.0) 07/15/21 04:21 AST 23 U/L (15-37) 07/15/21 04:21 ALT 30 U/L (12-78) 07/15/21 04:21 Alkaline Phosphatase 83 U/L (45-117) 07/15/21 04:21 Triglycerides 130 mg/dL (<150) 07/13/21 08:58 Cholesterol 114 mg/dL (<200) 07/13/21 08:58 HDL Cholesterol 44 mg/dL (40-60) 07/13/21 08:58 Cholesterol/HDL Ratio 2.59 07/13/21 08:58 Home Medications: Albuterol Sulfate [Proair Hfa] 2 puff IH QID PRN 07/13/21 Aspirin 81 mg PO DAILY 07/13/21 Atorvastatin Calcium [Lipitor] 40 mg PO BEDTIME 07/13/21 Diclofenac Sodium [Voltaren Arthritis Pain] 20 gm TP TID 07/13/21 Famotidine [Pepcid*] 20 mg PO BID 07/13/21 Fluconazole [Diflucan] 100 mg PO DAILY 07/13/21 Gabapentin 300 mg PO TID 07/13/21 Insulin Aspart [Novolog Flexpen] 4 unit SQ TID 07/13/21 Insulin Detemir [Levemir Flextouch] 15 unit SQ DAILY 07/13/21 Levetiracetam [Keppra] 500 mg PO BID 07/13/21 Megestrol [Megace*] 40 mg PO DAILY 07/13/21 Memantine HCl 20 mg PO DAILY 07/13/21 Morphine Oral Syrup [Morphine Oral Syrup*] 10 mg PO Q4HP PRN 07/13/21 Nut.tx.gluc Intol,Lf,Soy/Fiber [Boost Glucose Control] 237 ml PO BID 07/13/21 Polyethylene Glycol 3350 [Miralax] 17 gm PO DAILY 07/13/21 fentaNYL [Fentanyl] 1 each TD Q72H 07/13/21 Amlodipine [Norvasc*] 10 mg PO DAILY #30 tab 07/15/21 Benzonatate [Tessalon Perle*] 100 mg PO TID PRN #30 cap 07/15/21 Dexamethasone [Decadron] 6 mg PO DAILY #5 tablet 07/15/21 Guaifenesin [Mucinex] 1,200 mg PO BID #20 tbmp.12hr 07/15/21 Levofloxacin [Levaquin] 500 mg PO DAILY #7 tablet 07/15/21 New Medications: Dexamethasone [Decadron] 6 mg PO DAILY #5 tablet Levofloxacin [Levaquin] 500 mg PO DAILY #7 tablet Guaifenesin [Mucinex] 1,200 mg PO BID #20 tbmp.12hr Amlodipine [Norvasc*] 10 mg PO DAILY #30 tab Benzonatate [Tessalon Perle*] 100 mg PO TID PRN #30 cap PRN Reason: Cough Diet: ADA Followup: NONE,NONE [Primary Care Provider] - Time spent managing pt's care (in minutes): 35
[2021-07-15] MEDS: VITAMIN D 1000 UNIT TAB PO SCH (08:42)
[2021-07-15] MEDS: ASPIRIN EC 81 MG TAB PO SCH (08:42)
[2021-07-15] MEDS: THIAMINE HCL 100 MG TABLET PO SCH (08:42)
[2021-07-15] MEDS: levETIRAcetam 500 MG TAB PO SCH (08:42)
[2021-07-15] MEDS: FAMOTIDINE 20 MG TAB PO SCH (08:42)
[2021-07-15] MEDS: CEFEPIME 2 GM in NA CHLORIDE 0.9% 100 ML IV SCH (08:43)
[2021-07-15] MEDS: ASCORBIC ACID 500 MG TABLET PO SCH (08:43)
[2021-07-15] MEDS: ZINC SULFATE 220 MG CAP PO SCH (08:43)
[2021-07-15] MEDS: AMLODIPINE 10 MG TAB PO SCH (08:43)
[2021-07-15] MEDS: INSULIN -REGULAR HUMAN 50 UNIT/0.5 ML ML SQ SCH (08:45)
[2021-07-15] MEDS: INSULIN GLARGINE 100 UNIT/ML SQ SCH (08:45)
[2021-07-15] MEDS: FIBER PO SCH (08:46)
[2021-07-15] MEDS: NUT TX GLUC INTOL LF SOY PO SCH (08:46)
[2021-07-15] MEDS: [UNRECOGNIZED DRUG - OTHER] PO SCH (08:46)
[2021-07-15] MEDS ORDERED: MEMANTINE HCL 10 MG TABLET PO SCH (09:00)
[2021-07-15] MEDS ORDERED: dexAMETHasone 4 MG TAB PO SCH (09:00)
--- NOTE | 2021-07-15 11:35 | RAD REPORT ---
EXAM DESCRIPTION: CT Chest Without Intravenous Contrast CLINICAL HISTORY: DYSPNEA TECHNIQUE: Axial computed tomography images of the chest without intravenous contrast. Sagittal an d coronal reformatted images were created and reviewed. This CT exam was performed using one or mor e of the following dose reduction techniques: automated exposure control, adjustment of the mA and/ or kV according to patient size, and/or use of iterative reconstruction technique. COMPARISON: No relevant prior studies available. FINDINGS: Artifacts: Motion artifact degrades image quality. Lungs: Lobulated right suprahilar opacity with intrinsic gas foci measuring approximately 4 x 2.7 x 3.8 cm. There is a 1.3 cm nodule within the posterior right upper lobe (series 202 image 19). There are a few additional right lower lobe nodular opacities, the largest measuring 1 cm (series 202 image 33). Multifocal groundglass opacities within the left upper, lower lobes and lingula in a perihilar distribution and to a lesser extent within the right middle and lower lobes. Pleural space: Unremarkable. No pneumothorax. No significant effusion. Heart: The heart is mildly enlarged. Coronary artery calcification. No significant pericardial ef fusion. Mediastinum: Enlarged subcarinal lymph node measuring 3.3 cm in short axis. Bones/joints: Multilevel spondylosis. No acute fracture. No dislocation. Soft tissues: Unremarkable. Vasculature: Mild atherosclerotic disease. No thoracic aortic aneurysm. Lymph nodes: See above. IMPRESSION: 1. Findings concerning for right suprahilar mass/malignancy, possibly necrotic. There are additional right upper and lower lobe nodules as well as mediastinal lymphadenopathy which may re flect metastatic disease. 2. Multifocal infiltrates bilaterally, left greater than right. 3. Other findings as above. Electronically signed by: Hailee Rivera MD 07/13/2021 3:59 AM VISITOR SERVICES REPRESENTATIVE Due to temporary technical issues with the PACS/Fluency reporting system, reports are being signed by the in house radiologists without review as a courtesy to insure prompt reporting. The interpreting radiologist is fully responsible for the content of the report.
== END 2021-07-15 12:00 | disposition home or self-care (01) | DRG 177 ==
LOC: ER 21:01 → ERHOLD 23:49 → 4TH 07-13 12:49 → 3RD-ICU 07-14 19:57
PROVIDERS: ADMIT Internal Medicine; ATTEND Internal Medicine
DX: U07.1 COVID-19 (principal); J12.82 Pneumonia due to coronavirus disease 2019; C71.9 Malignant neoplasm of brain, unspecified; I25.10 Atherosclerotic heart disease of native coronary artery without angina pectoris; F03.90 Unspecified dementia, unspecified severity, without behavioral disturbance, psychotic disturbance, mood disturbance, and anxiety; I10 Essential (primary) hypertension; E11.9 Type 2 diabetes mellitus without complications; R91.8 Other nonspecific abnormal finding of lung field; Z88.0 Allergy status to penicillin; Z86.73 Personal history of transient ischemic attack (TIA), and cerebral infarction without residual deficits
CPT/HCPCS: 36415; 71045; 71250; 71275; 80048; 80053; 80061; 80076; 80202; 81003; 81015; 82728; 82947; 83036; 83605; 83735; 83880; 84100; 84145; 84439; 84443; 84484; 85025; 85379; 85610; 86140; 87040; 93005; 94760; 96365; 96375; 99285; J0692; J2270; J2405; J2920; J2930; J3370; J7030; J7050; J8540; Q9967; U0003

== ENCOUNTER 2021-07-16 07:32 | Inpatient (IN) | payer OTHER ==
--- OUTSIDE RECORDS SUMMARY | 2021-07-16 07:35 | XMS REPORT | Clinical Summary ---
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 direct bilirubin must not be measured from samples containing indocyanine green. Bili Indirect 0.7 0.0 - 0.9 [facility] mg/dL [facility] Specimen Blood Performing Organization Address [facility] Phon e Number [facility] CANCER Unless otherwise noted, [address] all lab tests performed by: Division of Pathology and Laboratory Medicine [address] [place] Cardiac Panel (08/14/2020 1:23 PM PATENT LEATHER SORTER) CK 160 39 - 308 U/L [facility] CK MB <2.0 <=10.4 ng/mL [facility] Troponin T 12 <=18 ng/L [facility] Comment: [facility] < 19 ng/L Suggest [...] low results. Specimen Blood Performing Organization Address [facility] Phon e Number [facility] Unless otherwise noted, [address] all lab tests performed by: Division of Pathology and Laboratory Medicine [address] [facility] NT-Pro BNP (In-House) (08/14/2020 1:23 PM PATENT LEATHER SORTER) Pathologist Sig nature NT ProBNP 30 <=125 pg/mL [facility] Specimen Blood Performing Organization Address City/[facility] Phon e Number [facility] CANCER Unless otherwise noted, [address] all lab tests performed by: Division of Pathology and Laboratory Medicine [address] [facility] Blood Culture (08/14/2020 1:23 PM PATENT LEATHER SORTER) Final Report No growth [facility] Path Review - Immunity and antibiotic use may render culture negative. Ongoing infection requires repeat culture. The results have been reviewed and electronically signed by Pathologist: [facility] Bottle/Isolator Catherine Moreno MD, PhD #[id number] [facility] ENTER Specimen Blood - Peripheral Performing Organization Address [facility] Phon e Number [facility] CANCER Unless otherwise noted, [address] all lab tests performed by: Division of Pathology and Laboratory Medicine [address] [place] D-dimer (08/14/2020 1:23 PM PATENT LEATHER SORTER) D-Dimer 0.32 0.10 - 0.50 [facility] Comment: mcg/ml FEU [facility] The cut off value for exclusion of venous thromboembol ism is <0.51 mcg/mL FEUs (fibrinogen equivalent units). Specimen Blood Performing Organization Address [facility] Phon e Number [facility] CANCER Unless otherwise noted, [address] all lab tests performed by: Division of Pathology and Laboratory Medicine [address] [place] ALT (08/14/2020 1:23 PM PATENT LEATHER SORTER) Pathologist Sig nature ALT 16 <=41 U/L [facility] Specimen Blood Performing Organization Address [facility] Phon e Number [facility] CANCER Unless otherwise noted, [address] all lab tests performed by: Division of Pathology and Laboratory Medicine [address] Aspartate Aminotransferase (08/14/2020 1:23 PM PATENT LEATHER SORTER) Pathologist Sig nature AST 19 <=40 U/L [facility] Specimen Blood Performing Organization Address [facility] Phon e Number [facility] CANCER Unless otherwise noted, [address] all lab tests performed by: Division of Pathology and Laboratory Medicine [address] [place] Total Protein (08/14/2020 1:23 PM PATENT LEATHER SORTER) Pathologist Sig nature Total Protein 6.6 6.4 - 8.3 g/dL [facility] Specimen Blood Performing Organization Address [facility] Phon e Number [facility] CANCER Unless otherwise noted, [address] all lab tests performed by: Division of Pathology and Laboratory Medicine [address] [place] Alkaline Phosphatase (08/14/2020 1:23 PM PATENT LEATHER SORTER) Pathologist Sig nature Alk Phos 67 40 - 129 U/L [facility] Specimen Blood Performing Organization Address City/[facility]/ZIP Code Phon e Number [facility] CANCER Unless otherwise noted, [address] all lab tests performed by: Division of Pathology and Laboratory Medicine Ernesto Chanel (ABNORMAL) LDH (08/14/2020 1:23 PM PATENT LEATHER SORTER) LDH 226 (H)Comment: 135 - 225 U/L [facility] Results greater than [facility] 1651 U/L may not be reliable due to matrix effect with extended dilution as it exceeds the professional application designer s recommended limit. Caution should be exercised when interpreting such values and done in conjunction with clinical context. Specimen Blood Performing Organization Address City/State/ZIP Code Phon e Number [facility] CANCER Unless otherwise noted, [address] all lab tests performed by: Division of Pathology and Laboratory Medicine Ernesto Chanel Albumin Level (08/14/2020 1:23 PM PATENT LEATHER SORTER) Pathologist Sig nature Albumin Lvl 3.7 3.5 - 5.2 gm/dL [facility] [address] Specimen Blood Performing Organization Address City/State/ZIP Code Phon e Number [facility] CAN[facility]ER Unless otherwise noted, [address] all lab tests performed by: Division of Pathology and Laboratory Medicine Ernesto Chanel after 07/16/2020 Advance Directives Code Status Date Activated Date Inactivated Comments Full Code 08/14/2020 9:14 PM 08/15/2020 2:32 PM
--- OUTSIDE RECORDS SUMMARY | 2021-07-16 07:38 | XMS REPORT | Continuity of Care Document ---
:1955 Author Organization [facility] t Address [address] [place] [address] Care Team Providers Name Role Phone Black [...] Attending Clinician Unavailable HUMBLE Attending Clinician Unavailable Yesenia Fritz MD Attending Clinician Humble KURTZ Attending Clinician FRANKLYN Admitting Clinician Unavailable ARMANDO Admitting Clinician Unavailable Mat Admitting Clinician Unavailable HUMBLE Admitting Clinician Unavailable Payers Payer Name Policy Type Policy Number Effective Date Expiration Date Keely corcoran MEDICARE PART A [id number] 2019 ONLY 00:00:00 MEDICARE PART A [id number] 2019 2019 00:00:00 00:00:00 Problems Condition Condition [...] Procedure Date / Time Performed Performing Clinician [facility] e POC GLUCOSE SCREEN 2020-08-15 16:38:00 Lina [...] Kevin MD TROPONIN T 2020-08-15 03:50:00 Pillo Kevni MD POC GLUCOSE SCREEN 2020-08-15 03:35:00 Lina [...] COVID-19, NASOPHARYNGEAL SWAB SERUM CREATININE 2020-08-14 19:23:00 Miike Fritz MD And erson .GLOMERULAR FILTRATION RATE [...] Merlene Hudson MD D DIMER 2020-08-14 19:23:00 Merlene Hudson MD Results CBC 2020-08-14 19:23:00 Mikie [...] Type Clinicians Facility Department ID 2021-04-19 Inpatient [facility] [id number] H [place] 21:23:34 Health 2021-04-19 Inpatient [facility] [id number] [facility] [place] 00[facility]00:00 [facility] 2021-04-19 Inpatient [facility] [id number] H arr[place] 00:00:00 [facility] 2021-04-18 Inpatient DOUG, [facility] [id number] [place] 22:38:40 [facility] 2021-04-17 Inpatient 1 DOUG, [facility] [id number] [place] 21:54:00 [facility] 2018-04-27 Inpatient E [facility] MED [id number] [facility]N W 15:11:00 2021-08-10 2021-08-10 [facility] [id number] [place] 00:00:00 00:00:00 [facility] 2021-08-03 2021-08-03 [facility] [id number] [place] 00:00:00 00:00:00 [facility] 2021-07-26 2021-07-26 Outpatient [facility] [id number] [place] 00:00:00 00:00:00 [facility] 2021-07-12 2021-07-12 Outpatient DU KAUFFMAN [facility] [id number] [place] 00:00:00 00:00:00 [facility] 2021-07-03 2021-07-03 Outpatient [facility] [id number] [place] 00:00:00 00:00:00 [facility] 2021-06-29 2021-06-29 [facility] [id number] [place] 00:00:00 00:00:00 [facility] 2021-06-28 2021-06-28 [facility] [id number] [place] 00:00:00 00:00:00 [facility] 2021-06-20 2021-06-20 [facility] [id number] [place] 00:00:00 00:00:00 [facility] 2021-06-11 2021-06-19 [facility] [id number] [place] 06:24:00 17:56:00 [facility] 2021-06-15 2021-06-15 [facility] [id number] [place] 00:00:00 00:00:00 [facility] 2021-06-14 2021-06-14 Outpatient [facility] [id number] [place] 00:00:00 00:00:00 [facility] 2021-06-132021-06-13 Outpatient [facility] [id number] [place] 10:28:38 10:28:38 Health 2021-06-13 2021-06-13 Outpatient GEREMIAS, [facility] [id number] [place] 09:56:27 09:56:27 [facility] 2021-06-12 2021-06-12 Outpatient MULLIGAN, [facility] [id number] [place] 06:57:35 07:53:44 [facility] 2021-06-12 2021-06-12 Outpatient MULLIGAN, [facility] [id number] [place] 06:16:14 06:16:14 [facility] 2021-06-11 2021-06-11 Emergency SERGOT, [facility] [id number] [place] 07:54:12 08:59:23 [facility] 2021-06-11 2021-06-11 Emergency SERGOT, [facility] [id number] [place] 06:41:17 07:04:33 [facility] 2021-06-11 2021-06-11 Emergency SERGOT, [facility] [id number] [place] 06:37:00 06:47:57 [facility] 2021-06-11 2021-06-11 Outpatient 1 MULLIGAN, [facility] [id number] [place] 06:24:00 06:24:00 [facility] 2021-06-08 2021-06-08 [facility] [id number] [place] 09:29:43 10:18:25 [facility] 2021-06-07 2021-06-07 Outpatient ALLISON, [facility] [id number] [place] 08:59:53 23:59:00 [facility] 2021-06-06 2021-06-06 [facility] [id number] [address] [place] [address] 09:40:31 23:59:00 [facility] 2021-06-06 2021-06-06 [facility] [id number] [place] 09:09:50 09:39:00 [facility] 2021-06-05 2021-06-05 Outpatient ALLISON, [facility] [id number] [place] 09:08:00 23:59:00 [facility] 2021-06-05 2021-06-05 Outpatient TAMERA, [facility] [id number] [place] 00:00:00 00:00:00 [facility] 2021-06-04 2021-06-04 Outpatient ALLISON, [facility] [id number] [place] 09:27:36 23:59:00 [facility] 2021-06-01 2021-06-01 Outpatient ALLISON, [facility] [id number] [place] 08:36:55 23:59:00 [facility] 2021-06-01 2021-06-01 Outpatient [facility] [id number] [place] 06:50:10 13:25:12 Health 2021-05-31 2021-05-31 Outpatient ALLISON, [facility] [id number] [place] 10:04:04 23:59:00 [facility] 2021-05-30 2021-05-30 Outpatient ALLISON, [facility] [id number] [place] 11:18:20 23:59:00 [facility] 2021-05-30 2021-05-30 Outpatient ALLISON, [facility] [id number] [place] 10:29:50 10:59:00 [facility] 2021-05-29 2021-05-29 Outpatient BROOKLYNTTI, [facility] [id number] [place] 10:33:21 11:35:38 [facility] 2021-05-29 2021-05-29 Outpatient [facility] [id number] [place] 00:00:00 00:00:00 Health 2021-05-28 2021-05-28 [facility] [id number] [place] 11:23:25 23:59:00 [facility] 2021-05-28 2021-05-28 [facility] [id number] [place] 11:13:31 10:59:00 [facility] 2021-05-25 2021-05-25 [facility] [id number] [place] 10:20:04 23:59:00 [facility] 2021-05-25 2021-05-25 [facility] [id number] [place] 10:30:45 10:30:45 [facility] 2021-05-24 2021-05-24 [facility] [id number] [place] 09:25:30 23:59:00 [facility] 2021-05-23 2021-05-23 Outpatient COVERDALE, [facility] [id number] [place] 00:00:00 00:00:00 [facility] 2021-05-18 2021-05-18 Outpatient CASTRO, [facility] [id number] [place] 00:00:00 00:00:00 [facility] 2021-05-16 2021-05-16 Outpatient ALLISON, [facility] [id number] [place] 08:56:57 23:59:00 [facility] 2021-05-11 2021-05-11 Outpatient DOUG, [facility] [id number] [place] 12:00:42 12:54:17 [facility] 2021-05-09 2021-05-09 Outpatient ALLISON, [facility] [id number] [place] 08:57:57 23:59:00 [facility] 2021-05-09 2021-05-09 Outpatient ZARIA BRUNER [facility] [id number] [place] 00:00:00 00:00:00 [facility] 2021-05-08 2021-05-08 Outpatient PHILIP, [facility] [id number] [place] 12:48:15 13:26:14 [facility] 2021-05-01 2021-05-01 [facility] [id number] [place] 11:23:18 11:27:06 [facility] 2021-05-01 2021-05-01 Outpatient MATT, [facility] [id number] [place] 10:22:47 11:16:37 [facility] 2021-05-01 2021-05-01 [facility] [id number] [place] 00:00:00 00:00:00 [facility] 2021-04-27 2021-04-27 Outpatient CASTRO, [facility] [id number] [place] 12:02:04 13:43:23 [facility] 2021-04-27 2021-04-27 Outpatient [facility] [id number] [place] 00:00:00 00:00:00 [facility] 2021-04-17 2021-04-22 Inpatient DOUG, [facility] [id number] [place] 21:54:00 15:15:00 [facility] 2021-04-17 2021-04-17 Emergency [facility] [id number] [place] 17:09:00 20:28:00 SUSAN [facility] 2021-04-17 2021-04-17 Emergency FONSECA, [facility] [id number] [place] 17:09:00 20:28:00 SUSAN [facility] 2021-04-17 2021-04-17 Emergency AC, [facility] [id number] [place] 18:06:34 18:06:34 [facility] 2021-04-17 2021-04-17 Emergency GARETT, [facility] [id number] [place] 14:00:00 14:30:00 BISHOP [facility] 2021-04-13 2021-04-13 Outpatient CASTRO, [facility] [id number] [place] 00:00:00 00:00:00 [facility] 2021-04-13 2021-04-13 Outpatient [facility] [id number] [place] 00:00:00 00:00:00 [facility] 2021-04-10 2021-04-10 Outpatient PHILIP, [facility] [id number] [place] 00:00:00 00:00:00 [facility] 2021-04-06 2021-04-06 Outpatient ALLISON, [facility] [id number] [place] 07:43:21 23:59:00 [facility] 2021-04-05 2021-04-05 Outpatient MATT, [facility] [id number] [place] 11:05:18 12:47:35 [facility] 2021-04-05 2021-04-05 Outpatient MATT, [facility] [id number] [place] 00:00:00 00:00:00 [facility] 2021-04-03 2021-04-03 Outpatient LOKI, [facility] [id number] [place] 11:38:07 15:12:20 [facility] 2021-04-03 2021-04-03 Outpatient JUDY, [facility] [id number] [place] 00:00:00 00:00:[facility] 2021-03-27 2021-03-27 Outpatient JUDY, [facility] [id number] [place] 00:00:00 00:00:[facility] 2021-03-13 2021-03-13 Outpatient TAMERA, [facility] [id number] [place] 12:54:47 13:17:08 [facility] 2021-03-12 2021-03-12 Outpatient [facility] [id number] [place] 08:38:54 09:54:08 [facility] 2021-03-08 2021-03-08 [facility] [id number] [place] 10:57:16 23:59:00 [facility] 2021-03-08 2021-03-08 Outpatient [facility] [id number] [place] 00:00:00 00:00:00 [facility] 2021-03-07 2021-03-07 [facility] [id number] [place] 10:54:03 23:59:00 [facility] 2021-03-07 2021-03-07 [facility] [id number] [place] 10:18:40 10:53:00 [facility] 2021-03-06 2021-03-06 [facility] [id number] [place] 08:37:43 23:59:00 [facility] 2021-03-06 2021-03-06 [facility] [id number] [place] 10:37:06 14:05:35 [facility] 2021-03-06 2021-03-06 Outpatient [facility] [id number] [place] 00:00:00 00:00:00 [facility] 2021-03-06 2021-03-06 Outpatient [facility] [id number] [place] 00:00:00 00:00:00 [facility] 2021-03-05 2021-03-05 [facility] [id number] [place] 10:51:35 23:59:00 [facility] 2021-03-05 2021-03-05 [facility] [id number] [place] 10:47:14 10:49:47 [facility] 2021-03-05 2021-03-05 Outpatient [facility] [id number] [place] 00:00:00 00:00:00 [facility] 2021-03-05 2021-03-05 Outpatient [facility] [id number] [place] 00:00:00 00:00:00 [facility] 2021-03-05 2021-03-05 Outpatient [facility] [id number] [place] 00:00:00 00:00:00 [facility] 2021-03-05 2021-03-05 Outpatient [facility] [id number] [place] 00:00:00 00:00:00 [facility] 2021-03-05 2021-03-05 [facility] [id number] [place] 00:00:00 00:00:00 [facility] 2021-03-05 2021-03-05 Outpatient [facility] [id number] [place] 00:00:00 00:00:00 [facility] 2021-03-02 2021-03-02 [facility] [id number] [place] 07:12:54 23:59:00 [facility] 2021-03-02 2021-03-02 [facility] [id number] [place] 10:48:00 13:20:12 [facility] 2021-03-02 2021-03-02 Outpatient [facility] [id number] [place] 10:31:34 10:34:35 [facility] 2021-03-02 2021-03-02 Outpatient [facility] [id number] [place] 00:00:00 00:00:00 [facility] 2021-03-02 2021-03-02 Outpatient [facility] [id number] [place] 00:00:00 00:00:00 [facility] 2021-03-02 2021-03-02 [facility] [id number] [place] 00:00:00 00:00:00 [facility] 2021-03-01 2021-03-01 [facility] [id number] [place] 10:35:53 23:59:00 [facility] 2021-03-01 2021-03-01 Outpatient [facility] [id number] [place] 00:00:00 00:00:00 [facility] 2021-03-01 2021-03-01 Outpatient [facility] [id number] [place] 00:00:00 00:00:00 [facility] 2021-02-28 2021-02-28 Outpatient [facility] [id number] [place] 11:08:45 23:59:00 [facility] 2021-02-28 2021-02-28 [facility] [id number] [place] 10:47:51 11:07:00 [facility] 2021-02-28 2021-02-28 [facility] [id number] [place] 08:29:21 09:49:26 [facility] 2021-02-28 2021-02-28 [facility] [id number] [place] 00:00:00 00:00:00 [facility] 2021-02-28 2021-02-28 Outpatient [facility] [id number] [place] 00:00:00 00:00:00 [facility] 2021-02-28 2021-02-28 Outpatient [facility] [id number] [place] 00:00:00 00:00:00 [facility] 2021-02-27 2021-02-27 Outpatient ALLISON, [facility] [id number] [place] 12:54:28 23:59:00 [facility] 2021-02-27 2021-02-27 Outpatient CLAIRE, [facility] [id number] [place] 07:39:29 10:47:37 [facility] 2021-02-27 2021-02-27 Outpatient [facility] [id number] [place] 00:00:00 00:00:00 [facility] 2021-02-27 2021-02-27 Outpatient [facility] [id number] [place] 00:00:00 00:00:00 [facility] 2021-02-27 2021-02-27 Outpatient [facility] [id number] [place] 00:00:00 00:00:00 [facility] 2021-02-26 2021-02-26 [facility] [id number] [place] 11:12:54 23:59:00 [facility] 2021-02-26 2021-02-26 Outpatient CASTRO, [facility] [id number] [place] 11:06:35 11:09:46 [facility] 2021-02-26 2021-02-26 Outpatient [facility] [id number] [place] 00:00:00 00:00:00 [facility] 2021-02-26 2021-02-26 Outpatient [facility] [id number] [place] 00:00:00 00:00:00 [facility] 2021-02-26 2021-02-26 Outpatient [facility] [id number] [place] 00:00:00 00:00:00 [facility] 2021-02-26 2021-02-26 Outpatient [facility] [id number] [place] 00:00:00 00:00:00 [facility] 2021-02-26 2021-02-26 Outpatient [facility] [id number] [place] 00:00:00 00:00:00 [facility] 2021-02-23 2021-02-23 [facility] [id number] [place] 11:09:32 23:59:00 [facility] 2021-02-23 2021-02-23 Outpatient [facility] [id number] [place] 00:00:00 00:00:00 [facility] 2021-02-23 2021-02-23 Outpatient [facility] [id number] [place] 00:00:00 00:00:00 [facility] 2021-02-22 2021-02-22 [facility] [id number] [place] 14:43:51 23:59:00 [facility] 2021-02-22 2021-02-22 Outpatient [facility] [id number] [place] 00:00:00 00:00:00 [facility] 2021-02-22 2021-02-22 Outpatient [facility] [id number] [place] 00:00:00 00:00:00 [facility] 2021-02-21 2021-02-21 [facility] [id number] [place] 11:02:54 23:59:00 [facility] 2021-02-21 2021-02-21 [facility] [id number] [place] 10:38:16 11:01:00 [facility] 2021-02-21 2021-02-21 Outpatient [facility] [id number] [place] 00:00:00 00:00:00 [facility] 2021-02-21 2021-02-21 Outpatient [facility] [id number] [place] 00:00:00 00:00:00 [facility] 2021-02-20 2021-02-20 [facility] [id number] [place] 10:14:53 23:59:00 [facility] 2021-02-20 2021-02-20 Outpatient [facility] [id number] [place] 11:08:20 11:08:20 [facility] 2021-02-20 2021-02-20 Outpatient [facility] [id number] [place] 00:00:00 00:00:00 [facility] 2021-02-20 2021-02-20 Outpatient [facility] [id number] [place] 00:00:00 00:00:00 [facility] 2021-02-19 2021-02-19 [facility] [id number] [place] 11:02:04 23:59:00 [facility] 2021-02-19 2021-02-19 Outpatient CASTRO, [facility] [id number] [place] 10:56:46 11:00:15 [facility] 2021-02-19 2021-02-19 Outpatient [facility] [id number] [place] 00:00:00 00:00:00 Health 2021-02-19 2021-02-19 Outpatient [facility] [id number] [place] 00:00:00 00:00:00 [facility] 2021-02-19 2021-02-19 Outpatient [facility] [id number] [place] 00:00:00 00:00:00 [facility] 2021-02-19 2021-02-19 Outpatient [facility], [facility] [id number] [place] 00:00:00 00:00:00 [facility] 2021-02-16 2021-02-16 Outpatient [facility] [id number] [place] 11:29:20 23:59:00 [facility] 2021-02-16 2021-02-16 Outpatient [facility] [id number] [place] 00:00:00 00:00:00 [facility] 2021-02-16 2021-02-16 Outpatient [facility] [id number] [place] 00:00:00 00:00:00 [facility] 2021-02-15 2021-02-15 [facility] [id number] [place] 13:59:44 23:59:00 [facility] 2021-02-15 2021-02-15 Outpatient [facility] [id number] [place] 00:00:00 00:00:00 [facility] 2021-02-15 2021-02-15 Outpatient [facility] [id number] [place] 00:00:00 00:00:00 [facility] 2021-02-14 2021-02-14 [facility] [id number] [place] 10:56:30 23:59:00 [facility] 2021-02-14 2021-02-14 Outpatient [facility] [id number] [place] 10:26:16 10:55:00 [facility] 2021-02-14 2021-02-14 Outpatient [facility] [id number] [place] 00:00:00 00:00:00 [facility] 2021-02-14 2021-02-14 Outpatient [facility] [id number] [place] 00:00:00 00:00:00 [facility] 2021-02-13 2021-02-13 [facility] [id number] [place] 09:57:20 23:59:00 [facility] 2021-02-13 2021-02-13 Outpatient ADRYANI, [facility] [id number] [place] 10:45:23 13:46:38 [facility] 2021-02-13 2021-02-13 Outpatient [facility] [id number] [place] 00:00:00 00:00:00 [facility] 2021-02-13 2021-02-13 Outpatient SAMM, [facility] [id number] [place] 00:00:00 00:00:00 [facility] 2021-02-13 2021-02-13 Outpatient [facility] [id number] [place] 00:00:00 00:00:00 [facility] 2021-02-13 2021-02-13 Outpatient [facility] [id number] [place] 00:00:00 00:00:00 [facility] 2021-02-13 2021-02-13 Outpatient PARKER, [facility] [id number] [place] 00:00:00 00:00:00 BAM Mccormick 2021-02-12 2021-02-12 [facility] [id number] [place] 10:59:52 23:59:00 [facility] 2021-02-12 2021-02-12 Outpatient [facility] [id number] [place] 12:16:22 12:20:21 [facility] 2021-02-12 2021-02-12 Outpatient [facility] [id number] [place] 00:00:00 00:00:00 [facility] 2021-02-12 2021-02-12 Outpatient [facility] [id number] [place] 00:00:00 00:00:00 [facility] 2021-02-12 2021-02-12 Outpatient [facility] [id number] [place] 00:00:00 00:00:00 [facility] 2021-02-09 2021-02-09 [facility] [id number] [place] 10:46:05 23:59:00 [facility] 2021-02-09 2021-02-09 Outpatient [facility] [id number] [place] 00:00:00 00:00:00 [facility] 2021-02-09 2021-02-09 Outpatient [facility] [id number] [place] 00:00:00 00:00:00 [facility] 2021-02-08 2021-02-08 [facility] [id number] [place] 10:09:06 23:59:00 [facility] 2021-02-08 2021-02-08 Outpatient [facility] [id number] [place] 00:00:00 00:00:00 [facility] 2021-02-08 2021-02-08 Outpatient [facility] [id number] [place] 00:00:00 00:00:00 [facility] 2021-02-07 2021-02-07 Outpatient ALLISON, [facility] [id number] [place] 09:01:03 23:59:00 [facility] 2021-02-07 2021-02-07 Outpatient CLAIRE, [facility] [id number] [place] 10:39:42 12:39:44 [facility] 2021-02-07 2021-02-07 Outpatient ALLISON, [facility] [id number] [place] 08:28:32 09:00:00 [facility] 2021-02-07 2021-02-07 Outpatient [facility] [id number] [place] 08:22:37 08:25:03 [facility] 2021-02-07 2021-02-07 Outpatient [facility] [id number] [place] 00:00:00 00:00:00 [facility] 2021-02-07 2021-02-07 Outpatient [facility] [id number] [place] 00:00:00 00:00:00 [facility] 2021-02-06 2021-02-06 Outpatient ALLISON, [facility] [id number] [place] 11:01:40 23:59:00 [facility] 2021-02-06 2021-02-06 Outpatient CASTRO, [facility] [id number] [place] 07:45:54 10:22:37 [facility] 2021-02-06 2021-02-06 Outpatient [facility] [id number] [place] 00:00:00 00:00:00 [facility] 2021-02-06 2021-02-06 Outpatient [facility] [id number] [place] 00:00:00 00:00:00 [facility] 2021-02-06 2021-02-06 Outpatient [facility] [id number] 39 [place] 00:00:00 00:00:00 [facility] 2021-02-05 2021-02-05 Outpatient ALLISON, [facility] [id number] [place] 10:27:44 23:59:00 [facility] 2021-02-05 2021-02-05 Outpatient [facility] [id number] [place] 10:22:52 10:25:34 Health 2021-02-05 2021-02-05 Outpatient [facility] [id number] [place] 00:00:00 00:00:00 [facility] 2021-02-05 2021-02-05 Outpatient [facility] [id number] [place] 00:00:00 00:00:00 [facility] 2021-02-05 2021-02-05 Outpatient [facility] [id number] [place] 00:00:00 00:00:00 [facility] 2021-02-02 2021-02-02 [facility] [id number] [place] 11:01:07 23:59:00 [facility] 2021-02-02 2021-02-02 Outpatient [facility] [id number] [place] 00:00:00 00:00:00 [facility] 2021-02-02 2021-02-02 Outpatient [facility] [id number] [place] 00:00:00 00:00:00 [facility] 2021-02-01 2021-02-01 [facility] [id number] [place] 11:07:59 23:59:00 [facility] 2021-02-01 2021-02-01 Outpatient [facility] [id number] [place] 00:00:00 00:00:00 [facility] 2021-02-01 2021-02-01 Outpatient [facility] [id number] [place] 00:00:00 00:00:00 [facility] 2021-01-31 2021-01-31 [facility] [id number] [place] 11:23:32 23:59:00 [facility] 2021-01-31 2021-01-31 [facility] [id number] [place] 10:57:12 11:22:00 [facility] 2021-01-31 2021-01-31 Outpatient [facility] [id number] [place] 00:00:00 00:00:00 [facility] 2021-01-31 2021-01-31 Outpatient [facility] [id number] [place] 00:00:00 00:00:00 [facility] 2021-01-30 2021-01-30 Outpatient [facility] [id number] [place] 12:28:51 17:05:55 [facility] 2021-01-30 2021-01-30 Outpatient [facility] [id number] [place] 00:00:00 00:00:00 [facility] 2021-01-30 2021-01-30 Outpatient [facility] [id number] [place] 00:00:00 00:00:00 [facility] 2021-01-30 2021-01-30 Outpatient [facility] [id number] [place] 00:00:00 00:00:00 [facility] 2021-01-30 2021-01-30 Outpatient MATT, [facility] [id number] [place] 00:00:00 00:00:00 [facility] 2021-01-26 2021-01-26 Outpatient ALLISON, [facility] [id number] [place] 11:09:54 23:59:00 [facility] 2021-01-26 2021-01-26 Outpatient [facility] [id number] [place] 11:05:03 11:08:15 [facility] 2021-01-26 2021-01-26 Outpatient CASTRO, [facility] [id number] [place] 00:00:00 00:00:00 [facility] 2021-01-26 2021-01-26 Outpatient [facility] [id number] [place] 00:00:00 00:00:00 [facility] 2021-01-26 2021-01-26 Outpatient [facility] [id number] [place] 00:00:00 00:00:00 [facility] 2021-01-26 2021-01-26 Outpatient [facility] [id number] [place] 00:00:00 00:00:00 [facility] 2021-01-25 2021-01-25 [facility] [id number] [place] 14:45:30 23:59:00 [facility] 2021-01-25 2021-01-25 Outpatient [facility] [id number] [place] 00:00:00 00:00:00 [facility] 2021-01-25 2021-01-25 Outpatient [facility] [id number] [place] 00:00:00 00:00:00 [facility] 2021-01-24 2021-01-24 [facility] [id number] [place] 15:10:47 23:59:00 [facility] 2021-01-24 2021-01-24 [facility] [id number] [place] 14:32:38 14:39:00 [facility] 2021-01-24 2021-01-24 Outpatient [facility] [id number] [place] 00:00:00 00:00:00 [facility] 2021-01-24 2021-01-24 Outpatient [facility] [id number] [place] 00:00:00 00:00:00 [facility] 2021-01-24 2021-01-24 Outpatient [facility] [id number] [place] 00:00:00 00:00:00 [facility] 2021-01-24 2021-01-24 Outpatient JONHARNOLD [facility] [id number] [place] 00:00:00 00:00:00 [facility] 2021-01-23 2021-01-23 [facility] [id number] [place] 12:15:19 23:59:00 [facility] 2021-01-23 2021-01-23 Outpatient CASTRO, [facility] [id number] [place] 07:24:28 12:23:28 [facility] 2021-01-23 2021-01-23 Outpatient [facility] [id number] [place] 00:00:00 00:00:00 [facility] 2021-01-23 2021-01-23 Outpatient [facility] [id number] [place] 00:00:00 00:00:00 [facility] 2021-01-22 2021-01-22 [facility] [id number] [place] 09:52:20 23:59:00 [facility] 2021-01-22 2021-01-22 Outpatient [facility] [id number] [place] 09:02:31 09:05:13 [facility] 2021-01-22 2021-01-22 Outpatient [facility] [id number] [place] 00:00:00 00:00:00 [facility] 2021-01-22 2021-01-22 [facility] [id number] [place] 00:00:00 00:00:00 BISHOP Ferraro 2021-01-19 2021-01-19 [facility] [id number] [place] 08:30:20 23:59:00 [facility] 2021-01-19 2021-01-19 Outpatient CASTRO, [facility] [id number] [place] 12:52:05 15:15:13 [facility] 2021-01-19 2021-01-19 Outpatient [facility] [id number] [place] 11:22:18 12:12:57 [facility] 2021-01-19 2021-01-19 [facility] [id number] [place] 00:00:00 00:00:00 BISHOP Ferraro 2021-01-182021-01-18 [facility] [id number] [place] 08:45:19 23:59:00 [facility] 2021-01-17 2021-01-17 Outpatient [facility] [id number] [place] 00:00:00 00:00:00 [facility] 2021-01-17 2021-01-17 Outpatient [facility] [id number] [place] 00:00:00 00:00:00 [facility] 2021-01-16 2021-01-16 Outpatient [facility] [id number] [place] 00:00:00 00:00:00 [facility] 2021-01-15 2021-01-15 Outpatient [facility] [id number] [place] 16:01:15 16:01:35 [facility] 2021-01-15 2021-01-15 Outpatient [facility] [id number] [place] 08:59:26 09:03:01 [facility] 2021-01-15 2021-01-15 Outpatient NAJMA, [facility] [id number] [place] 00:00:00 00:00:00 BISHOP [facility] 2021-01-12 2021-01-12 Outpatient ZARIA BRUNER [facility] [id number] [place] 10:44:39 11:59:30 [facility] 2021-01-09 2021-01-09 Outpatient [facility] [id number] [place] 00:00:00 00:00:00 [facility] 2021-01-08 2021-01-08 Outpatient [facility] [id number] [place] 09:11:41 09:16:46 [facility] 2021-01-08 2021-01-08 [facility] [id number] [place] 00:00:00 00:00:00 BISHOP [facility] 2021-01-04 2021-01-04 Emergency NABILA OSCAR [facility] [id number] [place] 16:02:00 18:23:00 [facility] 2021-01-04 2021-01-04 Emergency YAJAIRA, [facility] [id number] [place] 15:14:15 15:14:15 [facility] 2021-01-03 2021-01-03 Outpatient [facility] [id number] [place] 10:14:03 23:59:00 [facility] 2021-01-03 2021-01-03 [facility] [id number] [place] 08:21:30 09:15:25 [facility] 2020-12-29 2020-12-29 Outpatient JENELLE, [facility] [id number] [place] 13:55:59 14:36:27 [facility] 2020-12-28 2020-12-28 Outpatient DEBI MATTHEW [facility] [id number] [place] 10:35:16 13:03:46 [facility] 2020-12-27 2020-12-27 Outpatient [facility] [id number] [place] 12:50:24 23:59:00 [facility] 2020-12-22 2020-12-22 Outpatient CASTRO, [facility] [id number] [place] 10:28:26 12:10:43 [facility] 2020-12-22 2020-12-22 Outpatient [facility] [id number] [place] 10:21:00 10:23:49 [facility] 2020-12-22 2020-12-22 Outpatient JENELLE, [facility] [id number] [place] 09:03:29 09:10:50 [facility] 2020-12-22 2020-12-22 Outpatient JENELLE, [facility] [id number] [place] 07:25:33 08:27:51 [facility] 2020-12-22 2020-12-22 Outpatient CASTRO, [facility] [id number] [place] 00:00:00 00:00:00 [facility] 2020-12-22 2020-12-22 Outpatient JENELLE, [facility] [id number] [place] 00:00:00 00:00:00 [facility] 2020-12-17 2020-12-18 [facility] [id number] [place] 07:26:00 10:32:00 [facility] 2020-12-17 2020-12-17 Emergency PIPITONE, [facility] [id number] [place] 08:38:30 10:14:48 [facility] 2020-12-17 2020-12-17 Emergency PIPITONE, [facility] [id number] [place] 08:42:10 08:54:48 [facility] 2020-12-14 2020-12-14 Outpatient [facility] [id number] [place] 00:00:00 00:00:00 [facility] 2020-12-13 2020-12-13 Outpatient KYLER ANAYA [facility] [id number] [place] 06:43:43 13:03:00 [facility] 2020-12-13 2020-12-13 Outpatient [facility] [id number] [place] 12:00:57 12:00:57 [facility] 2020-12-13 2020-12-13 Outpatient [facility] [id number] [place] 09:52:58 09:52:58 [facility] 2020-12-13 2020-12-13 Outpatient [facility] [id number] [place] 07:09:58 07:09:58 [facility] 2020-12-13 2020-12-13 [facility] [id number] [place] 00:00:00 00:00:00 MARIA LUZ [facility] 2020-12-12 2020-12-12 Outpatient ERROL, [facility] [id number] [place] 05:55:15 14:02:44 [facility] 2020-12-12 2020-12-12 Outpatient CHRISTEN GAR [facility] [id number] [place] 05:44:45 05:48:00 [facility] 2020-12-12 2020-12-12 Outpatient CHRISTEN GAR [facility] [id number] [place] 00:00:00 00:00:00 [facility] 2020-12-12 2020-12-12 [facility] [id number] [place] 00:00:00 00:00:00 [facility] 2020-12-08 2020-12-08 Outpatient [facility] [id number] 14:28:00 23:59:00 David paris 2020-12-08 2020-12-08 [facility] [id number] [place] 08:49:28 13:59:46 [facility] 2020-12-08 2020-12-08 Outpatient [facility] [id number] [place] 11:09:54 11:13:35 [facility] 2020-12-08 2020-12-08 Outpatient GLORIA, [facility] [id number] [place] 00:00:00 00:00:00 [facility] 2020-12-08 2020-12-08 Outpatient VICTOR MYArley [facility] [id number] [place] 00:00:00 00:00:00 RYAN DAVIDSON 2020-11-30 2020-11-30 Outpatient GLORIA, [facility] [id number] [place] 20:00:58 23:59:00 [facility] 2020-11-28 2020-11-28 Outpatient ABRAN GERMAN [facility] [id number] [place] 12:54:23 23:59:00 [facility] 2020-11-24 2020-11-24 Outpatient KEMI MCMULLEN [id number] 13:45:00 23:59:00 David kaushik paris 2020-11-24 2020-11-24 [facility] [id number] [place] 08:45:53 10:31:27 [facility] 2020-11-24 2020-11-24 Outpatient [facility] [id number] [place] 10:22:58 10:31:02 [facility] 2020-11-24 2020-11-24 [facility] [id number] [place] 00:00:00 00:00:00 [facility] 2020-11-21 2020-11-21 [facility] [id number] [place] 13:52:03 14:43:21 SKINNY Mccormick 2020-11-17 2020-11-17 Outpatient KYLER ANAYA [facility] [id number] [place] 07:04:54 11:42:00 [facility] 2020-11-17 2020-11-17 [facility] [id number] [place] 11:03:02 11:03:02 [facility] 2020-11-17 2020-11-17 Outpatient [facility] [id number] [place] 10:12:31 10:12:31 [facility] 2020-11-17 2020-11-17 Outpatient [facility] [id number] [place] 07:36:30 07:36:30 [facility] 2020-11-15 2020-11-15 [facility] [id number] [place] 05:42:05 05:42:49 [facility] 2020-11-15 2020-11-15 [facility] [id number] [place] 00:00:00 00:00:00 [facility] 2020-11-08 2020-11-08 Outpatient CAMMIE-Y-Whitney [facility] [id number] [place] 08:16:07 11:45:00 RYAN DAVIDSON [facility] 2020-11-08 2020-11-08 Outpatient KYLER ANAYA [facility] [id number] [place] 00:00:00 00:00:00 [facility] 2020-11-07 2020-11-07 Outpatient [facility] [id number] [place] 13:30:11 15:50:42 [facility] 2020-11-07 2020-11-07 [facility] [id number] [place] 05:42:18 05:45:50 [facility] 2020-11-07 2020-11-07 Outpatient BONDS-Y-M [facility] [id number] [place] 00:00:00 00:00:00 RYAN DAVIDSON [facility] 2020-11-02 2020-11-02 Outpatient BONDS-Y-M [facility] [id number] [place] 13:42:15 14:53:18 RYAN DAVIDSON [facility] 2020-11-02 2020-11-02 Outpatient [facility] [id number] [place] 00:00:00 00:00:00 [facility] 2020-10-31 2020-10-31 [facility] [id number] [place] 14:05:31 15:12:02 [facility] 2020-10-31 2020-10-31 Outpatient [facility] [id number] [place] 12:12:06 12:16:47 [facility] 2020-10-31 2020-10-31 [facility] [id number] [place] 11:46:13 11:57:57 [facility] 2020-10-31 2020-10-31 [facility] [id number] [place] 00:00:00 00:00:00 [facility] 2020-10-26 2020-10-26 Outpatient Zala_G VFP P [id number] [facility] 05:26:00 05:26:00 [id number] Family Practic e 2020-10-18 2020-10-18 Outpatient KYLER ANAYA [facility] [id number] [place] 08:58:35 11:55:35 [facility] 2020-10-16 2020-10-16 Outpatient KYLER ANAYA [facility] [id number] [place] 16:42:27 23:59:00 [facility] 2020-10-11 2020-10-11 Outpatient [facility] [id number] [place] 08:57:18 09:07:05 [facility] 2020-10-11 2020-10-11 Outpatient KYLER ANAYA [facility] [id number] [place] 00:00:00 00:00:00 [facility] 2020-10-04 2020-10-04 Outpatient KYLER ANAYA [facility] [id number] [place] 10:02:36 12:19:59 Health 2020-10-04 2020-10-04 Outpatient [facility] [id number] [place] 00:00:00 00:00:00 Health 2020-09-27 2020-09-27 Emergency DIANA [facility] [id number] [place] 09:23:00 15:41:00 ERIC [facility] 2020-09-27 2020-09-27 Emergency [facility] [id number] [place] 13:39:52 13:52:41 Health 2020-09-27 2020-09-27 Emergency [facility] [id number] [place] 12:41:13 12:53:49 Health 2020-09-13 2020-09-13 Outpatient [facility] [id number] [place] 00:00:00 00:00:00 Health 2020-08-30 2020-08-30 Outpatient Zala_G VFP VFP [id number] [facility] 01:32:00 01:32:00 [id number] Family Practic e 2020-08-17 2020-08-17 Emergency ASHWIN KNIGHT [facility] [id number] [place] 09:19:00 15:45:00 Health 2020-08-14 2020-08-15 Outpatient ER [facility] Emergency [id number] [place] 12:10:00 12:27:00 LINA paris Results Test Description Test Time Test Comments Results Result Comments Source HIV 1+2 Ab+HIV1 p24 Ag SerPl Ql [place] 2021-06-11 23:56:42 Test Item Value Reference Range Interpretation Comme nts HIV 1+2 Ab+HIV1 p24 Ag SerPl Ql IA (test code = 80578-7) NEGATIVE Negative SARS-CoV-2 RNA Resp Ql ELVI+[id number] 09:52:40 Test Item Value Reference Range Interpretation Comments Hospitalized? (test code = No 28934-3) ICU? (test code = 67985-4) No Symptomatic as defined by CDC? No (test code = 85530-0) Employed in Healthcare? (test No code = 13832-4) Resident in a congregate care No setting (including nursing homes, residential care for people with intellectual and developmental disabilities, psychiatric treatment facilities, group homes, board and care homes, homeless prison, foster care or other): (test code = 39843-6) SARS-CoV-2 RNA Resp Ql ELVI+probe NOT DETECTED Not Detected (test code = 40146-0) COMMENT: The [employer] Xpert Xpress SARS-CoV-2 real-time PCR test was developed and its performance characteristics have been determined by the [facility]. This test has not been cleared or approved by the FDA. This test system has been authorized by the FDA under an Emergency Use Authorization (EUA). This test has been validated in accordance with the FDA\\ZU78213\\s Guidance document \\VY1863I\\Policy for Diagnostic Tests for Coronavirus Disease-2019 during the Public Health Emergency\\SD5851I\\ issued on October 11, 2019 and is used for clinical purposes. It should not be regarded as investigational or for research. \\MV7913K\\Detected\\OO6718I\\ results are in dicative of active infection with SARS-CoV-2; clinical correlation with patient history and other diagnostic information is necessary to determine patient infection status.\\TT0726Z\\Not Detected\\TI6523K\\ results do not preclude SARS-CoV-2 infection and should not be used as the sole basis for treatmentor other patient management decisions. Negative results must be combined with clinical observations, patient history, and epidemiological information.This laboratory is certified under the Clinical Laboratory Improvement Amendments (CLIA) as qualified to perform high complexity clinical laboratory testing. SARS-CoV-2 RNA Resp Ql ELVI+udazo4224-97-48 14:11:47 Test Item Value Reference Range Interpretation Comments Hospitalized? (test Yes code = 54230-2) ICU? (test code = Yes 578470-0) Symptomatic as defined No by CDC? (test code = 98972-8) Employed in No Healthcare? (test code = 27135-7) Resident in a No congregate care setting (including nursing homes, residential care for people with intellectual and developmental disabilities, psychiatric treatment facilities, group homes, board and care homes, homeless prison, foster care or other): (test code = 78165-3) SARS-CoV-2 RNA Resp Ql NOT DETECTED Not Detected INTER PRETATION: No ELVI+probe (test code = detec table levels 30876-1) of SARS-CoV-2 Coronavirus (COVID-19) were present in [...] its performance characteristics were verified by the [facility] molecular diagnostics laboratory and is authorized for clinical diagnostic use. This laboratory is certified under the Clinical Laboratory Improvement Amendments (CLIA) as qualified to perform high complexity clinical laboratory testing.SARS-CoV-2 RNA Resp Ql ELVI+nohci3246-29-79 05:44:25 Test Item Value Reference Range Interpretation Comments Hospitalized? (test No code = 22708-9) ICU? (test code = No 35563-4) Symptomatic as defined No by CDC? (test code = 34143-9) Employed in No Healthcare? (test code = 85611-4) Resident in a No congregate care setting (including nursing homes, residential care for people with intellectual and developmental disabilities, psychiatric treatment facilities, group homes, board and care homes, homeless prison, foster care or other): (test code = 47744-3) SARS-CoV-2 RNA Resp Ql NOT DETECTED Not Detected INTER PRETATION: No ELVI+probe (test code = detec table levels 54236-1) of SARS-CoV-2 Coronavirus (COVID-19) were present in [...] its performance characteristics were verified by the [facility] molecular diagnostics laboratory and is authorized for clinical diagnostic use. This laboratory is certified under the Clinical Laboratory Improvement Amendments (CLIA) as qualified to perform high complexity clinical laboratory testing.SARS-CoV-2 RNA Resp Ql ELVI+thxie3228-45-62 22:19:07 Test Item Value Reference Range Interpretation Comments Symptomatic as defined No by CDC? (test code = 04538-9) Hospitalized? (test Yes code = 90165-8) ICU? (test code = Yes 28129-3) Employed in No Healthcare? (test code = 75318-3) Resident in a No congregate care setting (including nursing homes, residential care for people with intellectual and developmental disabilities, psychiatric treatment facilities, group homes, board and care homes, homeless prison, foster care or other): (test code = 19574-1) SARS-CoV-2 RNA Nph Ql NOT DETECTED Not Detected The 20 novel ELVI+probe (test code = coron avirus 04987-6) (SARS-CoV-2) ta rget nucleic acids a re not detected. COMMENT: The [employer] SARS-CoV-2 real-time RT-PCR based diagnostic test intended for the qualitative detection of SARS-CoV-2 viral RNA in a nasopharyngeal swab during acute phase of infection. This test was developed and its performance characteristics have been determined by the [facility]. This test has not been cleared or approved by the FDA. This testsystem has been authorized by the FDA under an Emergency Use Authorization (EUA). This test has beenvalidated in accordance with the FDA\\EL02885\\s Guidance document \\CT5770A\\Policy for Coronavirus Disease-2019 Tests During the Public Health Emergency\\ER9803H\\ (Revised November 2019) and is used for clinical purposes. It should not be regarded as investigational or for research\\WB5384R\\Detected\\JQ8547R\\ results are indicative of the presence of the identified virus, but do not rule out bacterial infection or co-infection with other pathogens not detected by the test. Clinical correlation with patient his tory and other diagnostic information is necessary to determine patient infection status. \\NR5441D\\Not Detected\\OJ2099J\\ results do not preclude SARS-CoV-2 and should not be used as the sole basis for treatment or other patient management decisions. Negative results must be combined with clinical observations, patient history, and/or epidemiological information.This laboratory is certified under the Clinical Laboratory Improvement Amendments (CLIA) as qualified to perform high complexity clinical laboratory testing.Blood [id number] 20:31:16 Test Item Value Reference Range Interpretation Comments Final Report (test No growth code = 8488) Path Review - Immunity and antibiotic Bottle/Isolator use may render culture (test code = 8499) negative. Ongoing infection requires repeat culture. The results have been reviewed and electronically signed by Pathologist:Catherine Moreno MD, PhD #[id number] [facility] [id number] 01:47:27 Test Item Value Reference Range Interpretation Comments Final Report (test No growth code = 8488) Path Review - Urine The results have been (test code = 8483) reviewed and electronically signed by Pathologist:RAMIREZ SENIOR MD #[id number] [facility] Glucose [id number] 16:49:31 Test Item Value Reference Range Interpretation Comments POC Glucose (test 293 mg/dL 70-99 H Capillary blood code = 39613-0) samples, e.g . obtained by fingerstick, may [...] 9554) Lab Interpretation Abnormal (test code = 14113-1) MD OrlandoGlomerular Filtration [id number] 08:59:11 Test Item Value Reference Range Interpretation [...] failure <15 [Automa brandie message] The system Kormeli generated this result tra nsmitted reference range [...] failure <15 [Automa brandie message] The system Kormeli generated this result tra nsmitted reference range : >=60 mL/min/1.73 sq. m. The reference range was not used to interpret th is result as normal/abnormal . MD OrlandoMagnesium [id number] 08:59:10 Test Item Value Reference Range Interpretation Comments Magnesium (test code = 6359) 2.0 mg/dL 1.6-2.6 MD Orlando.Serum [id number] 08:59:09 Test Item Value Reference Range Interpretation Comments Creatinine (test code = 5399) 0.99 mg/dL 0.67-1.17 MD OrlandoPhosphorus [id number] 08:59:08 Test Item Value Reference Range Interpretation Comments Phosphorus (test code = 6817) 3.6 mg/dL 2.5-4.5 MD [id number] 08:59:07 Test Item Value Reference Range Interpretation Comments BUN (test code = 5055) 9 mg/dL 6-23 MD OrlandoCalcium [id number] 08:59:06 Test Item Value Reference Range Interpretation Comments Calcium Lvl (test code = 5258) 8.5 mg/dL 8.4-10.2 MD OrlandoElectrolyte [id number] 08:59:05 Test Item Value Reference Range Interpretation Comments Sodium Lvl (test code = 136 See_Comment [Au tomated message] The 7362) system which ge nerated this result tra [...] = 103 See_Comment [Auto mated message] The 9069) system which ge nerated this result tra [...] = 8 See_Comment [Aut omated message] The 5588) system which ge nerated this result tra nsmitted reference range : 4 - 14 mEq/L. The refe rence range was not u sed to interpret this result as normal/abnormal . MD OrlandoGlucose [id number] 08:59:04 Test Item Value Reference Range Interpretation [...] diabetes Lab Interpretation (test Abnormal code = 42052-6) MD rOlandoVmrntagpHjqpgr9366-63-17 08:57:04 Test Item Value Reference Range Interpretation Comments Lipase Lvl (test code = 6165) 25 U/L 13-60 MD OrlandoCqdmqhelLggcbfv1693-34-64 08:57:03 Test Item Value Reference Range Interpretation Comments Amylase Lvl (test code = 4806) 92 U/L 28-100 MD OrlandoKppkmuphCybkhalxospq1198-43-49 08:32:36 Test Item Value Reference Range Interpretation Comments Neutrophil % (test code = 52.0 % 42.0-66.0 51714-2) Lymphocyte % (test code = 36.2 % 24.0-44.0 737-7) Monocyte % (test code = 7.6 % 2.0-7.0 H 744-3) Eosinophil % (test code = 3.1 % 1.0-4.0 713-8) Basophil % (test code = 0.7 % 0.0-1.0 707-0) IGRE % (test code = 0.4 % 0.0-0.4 IGRE % c ount 42567-2) includes Metamyelocytes, Myelocytes, and Promyelocytes. Neutrophil Abs (test code 5.51 K/uL 1.70-7.30 = 753-4) Lymphocyte Abs (test code 3.83 K/uL 1.00-4.80 = 732-8) Monocyte Abs (test code = 0.80 K/uL 0.08-0.70 H 743-5) Eosinophil Abs (test code 0.33 K/uL 0.04-0.40 = 712-0) Basophil Abs (test code = 0.07 K/uL 0.00-0.10 705-4) IG Abs (test code = 0.04 K/uL 0.00-0.04 68392-5) Lab Interpretation (test Abnormal code = 08631-5) MD Orlando.[id number] 08:32:33 Test Item Value Reference Range Interpretation Comments WBC (test code = 10.6 K/uL 4.0-11.0 6690-2) RBC (test code = 789-8) 4.39 See_Comment L [Au tomated message] The system Kormeli generated this result transmitted ref erence range: 4.50 - 6 .00 M/uL. The refer ence range was not u sed to interpret this result as normal/abnor mal. Hgb (test code = 718-7) 12.8 See_Comment L [Au tomated message] The system Kormeli generated this result transmitted ref erence range: 14.0 - 1 8.0 gm/dL. The refe rence range was not u sed to interpret this result as normal/abnor mal. Hct (test code = 40.9 % 40.0-54.0 4544-3) MPV (test code = 787-2) 9.4 fL 4.0-10.4 MCH (test code = 785-6) 29.2 pg 27.0-31.0 MCHC (test code = 31.3 See_Comment [Automate d message] 786-4) The system Kormeli generated this result transmitted ref erence range: 31.0 - 3 6.0 gm/dL. The refe rence range was not u sed to interpret this result as normal/abnor mal. RDW-SD (test code = 44.5 fL 35.1-46.3 46659-6) RDW-CV (test code = 13.1 % 12.0-15.5 [...] . Lab Interpretation Abnormal (test code = 62071-1) MD Jarod Davis (In-House)2020-08-15 04:19:59 Test Item [...] as normal/abnormal . MD OrlandoGeneral Laboratory Add-On [id number] 03:25:38 Test Item Value Reference Range Interpretation Comments Ordered (test code = Test Added Test ad ded to 6568) accession [id number] Test Needed (test NT ProBNP code = 7604) MD OrlandoUrinalysis with [id number] 22:22:34 Test Item Value Reference Range Interpretation [...] implementation of new instrumentation in the [facility], allowing greater sensitivity of measurement. Urinalysis results reported by the [facility] using existing instrumentation, as well as Urinalysis testing performed manually or by backup methodology at the [facility] will remain relatively unchanged. New reporting parameters and units will now be reported for all campuses. MD OrlandoUrinalysis w/Microscopic if [id number] 21:57:35 Test Item Value Reference Range Interpretation [...] NEG Lab Interpretation (test code = Abnormal 50660-0) MD OrlandoRespiratory Viral Panel + COVID-19, Nasopharyngeal [id number] 21:19:08 Test Item Value Reference Range Interpretation Comments Adenovirus (test code = Not Detected Not Detected 7781) Coronavirus 229E (test Not Detected Not Detected code = 5349) Coronavirus HKU1 (test Not Detected Not Detected code = 5350) Coronavirus NL63 (test Not Detected Not Detected code = 5351) Coronavirus OC43 (test Not Detected Not Detected code = 5352) COVID19 (SARS-CoV-2) Not Detected Not Detected (test code = 04023-8) Human Metapneumovirus Not Detected Not Detected (test [...] Detected Not Detected Parapertussis (test code = 23276) Bordetella pertussis Not Detected Not Detected (test [...] including SARS-CoV-2, from a single nasopharyngeal swab (TRACK MOVING MACHINE OPERATOR) specimen. Specifically, the SARS-CoV-2 primers contained in [...] and high-complexity tests. The Microbiology Laboratory at [facility], CLIA Accreditation #[id number] and CAP Accreditation #[id number], verified the performance characteristics of this assay. [facility] Laboratory at [facility] performs the assay using the [employer] System. Internal controls are used to monitor all stages of the test process. [facility] VBG+[id number] 20:05:00 Test Item Value Reference Range Interpretation [...] Bicarb 26 mmol/L 23-28 (test code = 34651-9) POC VB Base Ex 0 mmol/L -2-3 [...] Yes (test code = 6672) MD OrlandoFractionated Shuzduzjo5363-08-09 19:58:10 Test Item Value Reference Range Interpretation [...] 28 g/L. [Automate d message] The system Kormeli generated this result transmitted ref erence range: [...] 0.7 mg/dL 0.0-0.9 code = 5095) MD [id number] 19:58:08 Test Item Value Reference Range Interpretation Comments LDH (test code = 6111) 226 U/L 135-225 H Resul ts greater than 1651 U/L may no t be reliable due to matrix effect w ith extended diluti on as it exceeds the seed potato cutter s recommended l imit. Caution should be exercised when interpreting coughlin ch values and done in conjunction wit h clinical contex t. Lab Interpretation (test Abnormal code = 31511-9) MD OrlandoAlbumin [id number] 19:58:06 Test Item Value Reference Range Interpretation Comments Albumin Lvl (test code 3.7 See_Comment [Aut omated message] The = 1193) system which ge nerated this result tra nsmitted reference range : 3.5 - 5.2 gm/dL. The refe rence range was not used to interpret this result as normal/abnormal . MD OrlandoAspartate Uhejcywkkpqlasot6400-10-52 19:58:05 Test Item Value Reference Range Interpretation Comments AST (test code = 19 U/L See_Comment [Automated message] The 4731) system which ge nerated this result transmit brandie reference range : <=40. The reference range was not used to interpr et this result as tremayne l/abnormal. MD OrlandoTotal [id number] 19:58:00 Test Item Value Reference Range Interpretation Comments Total Protein (test code = 7649) 6.6 g/dL 6.4-8.3 MD OrlandoAlkaline [id number] 19:57:58 Test Item Value Reference Range Interpretation Comments Alk Phos (test code = 4768) 67 U/L 40-129 MD [id number] 19:57:57 Test Item Value Reference Range Interpretation Comments ALT (test code = 16 U/L See_Comment [Automated message] The 6215) system which ge nerated this result transmit brandie reference range : <=41. The reference range was not used to interpr et this result as tremayne l/abnormal. MD OrlandoRkzcnfbfE-ikrtt5838-40-18 19:54:51 Test Item Value Reference Range Interpretation Comments D-Dimer (test code 0.32 See_Comment The cut o ff value for = 5419) exclusion of ve nous thromboembolism is <0.51 mcg/mL FEUs (fibrinoge n equivalent units). [Autom ated message] The system Kormeli generated this result tra nsmitted reference range : 0.10 - 0.50 mcg/ml FEU. The reference range was not u sed to interpret this result as normal/abnormal . MD OrlandoCardiac [id number] 19:51:46 Test Item Value Reference Range Interpretation Comments CK (test code = 5206) 160 U/L 39-308 CK MB (test code = <2.0 See_Comment [Automat ed message] The 3379) system which ge nerated this result tra [...] falsely low results. [ Automated message] The leaselock stem which generated this result transmitted ref erence range: <=18. Th e reference range was not used to interpr et this result as normal/abnormal . MD Orlando
--- NOTE | 2021-07-16 08:29 | RAD REPORT ---
EXAM DESCRIPTION: RAD - Chest Single View - 07/16/2021 8:20 am CLINICAL HISTORY: Cough;SOB COMPARISON: Chest Single View dated 07/12/2021; Chest Single View dated 11/18/2017; Chest Single View dated 04/18/2017; Chest Single View dated 01/11/2016; Chest For Pe Angio dated 07/14/2021; Thorax Wo C on dated 07/13/2021 FINDINGS: Lines: None. Lungs: Worsening aeration of the lungs bilaterally with increasing left mid lung consolidation and ri ght basilar opacities. 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 Pleural: No significant pleural effusions or pneumothorax. Cardiac: The heart size is within normal limits. Bones: No acute fractures. Other: IMPRESSION: Increasing bilateral airspace opacities concerning for worsening pneumonia.
[2021-07-16] MEDS ORDERED: MORPHINE 4 MG/ML SYR ONE (08:33)
[2021-07-16] MEDS ORDERED: ONDANSETRON 4 MG/2 ML VIAL ONE (08:34)
[2021-07-16] MEDS ORDERED: Levofloxacin 750mg IV 750 MG/150 ML BAG IV ONE (08:44)
[2021-07-16] MEDS ORDERED: NA CHLORIDE 0.9% 500 ML ONE (08:44)
[2021-07-16 09:02] LABS: Absolute Lymphocytes (CBC) 0.5 K/uL (0.7-4.9); Hematocrit 37.3 % (39.6-49.0); Lymphocytes % 3.1 % (15.3-44.8); MPV 6.8 fL (7.6-11.3); RBC Red Blood Cell Count 4.24 M/uL (4.33-5.43)
[2021-07-16 09:04] LABS: Protime INR 1.06
[2021-07-16] MEDS ORDERED: dexAMETHasone 10 MG/ML VIAL ONE (09:33)
[2021-07-16 09:56] LABS: Blood Morphology Comment NOT SEEN (NOT SEEN); Platelet Estimate ADEQ
[2021-07-16 10:07] LABS: ALT/SGPT 32 U/L (12-78); AST/SGOT 30 U/L (15-37); Albumin 1.8 g/dL (3.4-5.0); Alkaline Phosphatase 94 U/L (45-117); BUN Blood Urea Nitrogen 6 mg/dL (7-18); Bicarbonate 24 mmol/L (21-32); Bilirubin Direct 0.2 mg/dL (0-0.2); Bilirubin Total 0.7 mg/dL (0.2-1.0); Glucose Level 82 mg/dL (74-106); Protein, Total 6.7 g/dL (6.4-8.2); Sodium Level 136 mmol/L (136-145)
[2021-07-16 10:16] LABS: NT PRO-BNP 184 pg/mL (<125); Troponin (Emerg Dept Use Only) < 0.02 ng/mL (0.0-0.045)
[2021-07-16 10:18] LABS: Potassium 2.9 mmol/L (3.5-5.1)
[2021-07-16 10:31] LABS: Ferritin 1657.3 ng/mL (26-388)
--- NOTE | 2021-07-16 11:15 | EDPHYS ---
Physician Documentation [facility] Name: Andre Ward Age: 65 yrs Sex: Male : 1955 Arrival Date: 07/16/2021 Time: 07:44 Bed 5 Private MD: ED Physician Pj Orlando HPI: 07/16 07:55 This 65 yrs old Black Male presents to ER via EMS with complaints of Shortness Of cp Breath, COVID +. 07:55 The patient has shortness of breath at rest. Onset: The symptoms/episode began/occurred cp this morning. Duration: The symptoms are continuous, and are steadily getting worse. 07:55 Associated signs and symptoms: Pertinent positives: productive cough, abdominal pain, cp Pertinent negatives: chest pain, diaphoresis, fever. Severity of symptoms: in the emergency department the symptoms are unchanged despite EMS interventions. Historical: - Allergies: 09:35 PENICILLINS; murray 09:35 Lisinopril; murray 09:35 metformin; murray - Home Meds: 09:21 hydrochlorothiazide 25 mg Oral tab 1 tab once daily [Active]; diltiazem HCl 240 mg Oral murray CDER 1 cap once daily [Active]; fentanyl 12 mcg/hr Topical pt72 1 patch every 72 hours [Active]; megestrol 20 mg Oral tab 1 tab daily [Active]; atorvastatin 40 mg oral tab 1 tab once daily [Active]; famotidine 20 mg Oral tab 1 tab 2 times per day [Active]; - Immunization history:: Adult Immunizations up to date. - Social history:: Smoking status: Patient denies any tobacco usage or history of. ROS: 08:00 Constitutional: Negative for body aches, chills, fever, poor PO intake. cp 08:00 Eyes: Negative for injury, pain, redness, and discharge. cp 08:00 ENT: Negative for ear pain, sore throat, difficulty swallowing, difficulty handling secretions. 08:00 Cardiovascular: Negative for chest pain. 08:00 Respiratory: Positive for cough, "sounds productive", shortness of breath, at rest. 08:00 Abdomen/GI: Positive for abdominal pain, Negative for vomiting, diarrhea, constipation. 08:00 Back: Negative for pain at rest, pain with movement. 08:00 Neuro: Negative for altered mental status, headache, weakness. 08:00 All other systems are negative. Exam: 07:47 ECG was reviewed by the Attending Physician. cp 08:05 Constitutional: The patient appears alert, awake, non-diaphoretic, non-toxic, well cp developed, well nourished, in obvious distress, moderately distressed. 08:05 Head/Face: Normocephalic, atraumatic. cp 08:05 Eyes: Periorbital structures: appear normal, Conjunctiva: normal, no exudate, no injection, Sclera: no appreciated abnormality, Lids and lashes: appear normal, bilaterally. 08:05 ENT: External ear(s): are unremarkable, Nose: is normal, Mouth: Lips: moist, Oral mucosa: moist, Posterior pharynx: Airway: no evidence of obstruction, patent. 08:05 Neck: ROM/movement: is normal, is supple, no meningismus, no nuchal rigidity. 08:05 Chest/axilla: Inspection: normal. 08:05 Cardiovascular: Rate: tachycardic, Rhythm: regular, JVD: is not appreciated. 08:05 Respiratory: moderate respiratory distress is noted, Respirations: labored breathing, that is moderate, shallow respirations, that is moderate, Breath sounds: decreased breath sounds, that are moderate, throughout, stridor, is not appreciated. 08:05 Abdomen/GI: Inspection: abdomen appears normal, Bowel sounds: active, all quadrants, Palpation: soft, in all quadrants, moderate abdominal tenderness, in the left upper quadrant and left lower quadrant, rebound tenderness, is not appreciated, involuntary guarding, is not appreciated. 08:05 Back: CVA tenderness, is absent. 08:05 Neuro: Orientation: to person, place \\T\\ time. Mentation: is normal, Motor: moves all fours, strength is normal. Vital Signs: 08:18 BP 138 / 79; Pulse 109; Resp 22; Pulse Ox 96% on 4 lpm NC; murray 08:25 BP 133 / 70; Pulse 105; Resp 22; Pulse Ox 96% on NC; murray 09:28 BP 119 / 68; Pulse 87; Resp 18; Pulse Ox 94% on 2 lpm NC; murray 10:11 BP 124 / 69; Pulse 98; Resp 18; Pulse Ox 94% on NC; Weight 67.59 kg; Height 5 ft. 10 murray in. (177.80 cm); 11:40 BP 130 / 72; Pulse 100; Resp 18; Pulse Ox 95% on 4 lpm NC; murray 12:41 BP 111 / 64; Pulse 103; Resp 18; Pulse Ox 94% on 4 lpm NC; murray 10:11 Body Mass Index 21.38 (67.59 kg, 177.80 cm) murray MDM: 07:47 Patient medically screened. cp 08:00 Differential diagnosis: CHF exacerbation, Chronic Obstructive Pulmonary Disease cp pneumonia, pulmonary edema, Pulmonary Embolism Sepsis. 11:15 Physician consultation: Fred Duvall was contacted at 11:10, regarding admission, to the telemetry unit. patient's condition. 11:45 Data reviewed: vital signs, nurses notes, lab test result(s), EKG, radiologic studies, cp CT scan, plain films. 11:45 Test interpretation: by ED physician or midlevel provider: ECG, plain radiologic cp studies. 07/16 07:46 Order name: Basic Metabolic Panel cp 07/16 07:46 Order name: CBC with Diff cp 07/16 07:46 Order name: LFT's cp 07/16 07:46 Order name: Magnesium cp 07/16 07:46 Order name: NT PRO-BNP; Complete Time: 11:12 cp 07/16 10:18 Interpretation: Abnormal: NT PRO-BNP 184. cp 07/16 07:46 Order name: PT-INR; Complete Time: 09:16 cp 07/16 09:32 Interpretation: Reviewed. cp 07/16 07:46 Order name: Troponin (emerg Dept Use Only); Complete Time: 11:12 cp 07/16 07:46 Order name: Procalcitonin; Complete Time: 10:03 cp 07/16 10:03 Interpretation: Abnormal: Procalcitonin 0.10. cp 07/16 07:46 Order name: CRP; Complete Time: 11:12 cp 07/16 10:19 Interpretation: Abnormal: C-REACTIVE PROT 67.70. cp 07/16 07:46 Order name: Ferritin; Complete Time: 11:12 cp 07/16 11:13 Interpretation: Abnormal: AFSHIN 1657.3. cp 07/16 07:46 Order name: Lactate; Complete Time: 08:33 cp 07/16 09:16 Interpretation: Abnormal: LAC 2.5. cp 07/16 07:46 Order name: Blood Culture Adult (2) cp 07/16 07:47 Order name: Basic Metabolic Panel; Complete Time: 11:12 EDMS 07/16 10:19 Interpretation: Normal except: BUN 6; CRE 0.48; K 2.9. 07/16 07:47 Order name: CBC with Automated Diff; Complete Time: 10:03 EDMS 07/16 09:16 Interpretation: Normal except: WBC 16.30; RBC 4.24; HGB 12.4; HCT 37.3; RDW 16.8; MPV cp 6.8; JOE% 93.0; LYM% 3.1; NEUT A 15.2; LYMA 0.5. 07/16 07:46 Order name: XRAY Chest (1 view); Complete Time: 08:33 07/16 09:16 Interpretation: Report review. 07/16 07:46 Order name: EKG; Complete Time: 07:48 07/16 07:46 Order name: Cardiac monitoring; Complete Time: 08:24 07/16 07:47 Order name: Liver (Hepatic) Function; Complete Time: 11:12 EDWI 07/16 10:19 Interpretation: Normal except: ALB 1.8; GLOB 4.9; A/G 0.4. 07/16 07:47 Order name: Magnesium; Complete Time: 11:12 EDMS 07/16 09:11 Order name: Manual Differential; Complete Time: 10:03 EDWI 07/16 10:04 Interpretation: Normal except: SEGS 92; LYM 1. 07/16 09:35 Order name: CT Chest For PE Angio; Complete Time: 11:41 07/16 11:42 Interpretation: Report reviewed. 07/16 09:35 Order name: CT Abd/Pelvis - IV Contrast Only; Complete Time: 11:41 cp 07/16 11:42 Interpretation: Report reviewed. 07/16 12:39 Order name: Diet Heart Healthy; Complete Time: 12:39 murray 07/16 13:31 Order name: Lactate Sepsis 2 HR Follow-up EDWI 07/16 07:46 Order name: EKG - Nurse/Tech; Complete Time: 08:24 cp 07/16 07:46 Order name: IV Saline Lock; Complete Time: 08:24 cp 07/16 07:46 Order name: Labs collected and sent; Complete Time: 08:24 07/16 07:46 Order name: O2 Per Protocol; Complete Time: 08:24 07/16 07:46 Order name: O2 Sat Monitoring; Complete Time: 08:24 cp 07/16 08:25 Order name: Labs - recollect needed: recollect all tubes.; Complete Time: 10:05 bd EC:47 Rate is 110 beats/min. Rhythm is regular. PA interval is normal. QRS interval is cp normal. QT interval is normal. Interpreted by me. Reviewed by me. Administered Medications: 08:39 CANCELLED (Physician Discretion): NS 0.9% 1000 ml IV at 1 bolus Per protocol; 1000 mL cp bolus 08:40 Drug: morphine 4 mg Route: IVP; Site: left antecubital; murray 12:05 Follow up: Response: No adverse reaction murray 08:40 Drug: Zofran (Ondansetron) 4 mg Route: IVP; Site: left antecubital; murray 12:05 Follow up: Response: No adverse reaction murray 09:30 Drug: LevaQUIN (levofloxacin) 750 mg Volume: 150 ml; Route: IVPB; Infused Over: 90 murray mins; Site: right forearm; 12:47 Follow up: IV Status: Completed infusion murray 09:30 Drug: NS 0.9% 500 ml Route: IV; Rate: bolus; Site: right forearm; murray 15:43 Follow up: IV Status: Completed infusion jh5 09:33 Drug: Dexamethasone 6 mg Route: IVP; Site: right forearm; murray 10:05 Follow up: Response: No adverse reaction murray Disposition Summary: 07/16/21 11:14 Hospitalization Ordered Hospitalization Status: Inpatient Admission cp Provider: Fred Duvall cp Condition: Stable cp Problem: an ongoing problem cp Symptoms: have improved cp Bed/Room Type: Standard cp Location: Intensive Care Unit(07/16/21 14:16) dw Room Assignment: 8-(07/16/21 14:16) Diagnosis - Pneumonia due to SARS-associated coronavirus cp - Hypoxemia cp - Hypokalemia cp Forms: - Medication Reconciliation Form cp - SBAR form cp Addendum: 07/17/2021 18:48 Co-signature as Attending Physician, Pj Orlando MD I agree with the assessment and c murray plan of care. Signatures: Dispatcher [employer] EDMoon Shoemaker Diana, RN RN dw Anderson, Corey, MD MD cha Page, Corey PA PA cp Au-StagerErica Jessica RN jh5 Corrections: (The following items were deleted from the chart) 07/16 08:22 08:22 PMHx: Hypertension; murray murray 08: 08:22 PMHx: CAD; murray murray 08: 08:22 PMHx: Diabetes - NIDDM; murray murray 08: 08:22 PMHx: TIA; murray murray 08: 08:22 PMHx: brain cancer; murray murray 08: 08:22 PSHx: Brain; murray murray 08:39 08:37 NS 0.9% 1000 ml IV at 1 bolus Per protocol; 1000 mL bolus ordered. cp cp 09:40 08:22 Allergies: PENICILLINS [Inactive]; murray murray 09:40 08:22 Allergies: Lisinopril [Inactive]; murray murray 09:40 08:22 Allergies: metformin [Inactive]; murray murray 14:16 11:14 Telemetry/MedSurg (Inpatient) cp dw 14:16 11:14 cp dw
--- NOTE | 2021-07-16 11:15 | ER ---
Nurse's Notes [facility] Name: Andre Ward Age: 65 yrs Sex: Male : 1955 Arrival Date: 07/16/2021 Time: 07:44 Bed 5 Private MD: Diagnosis: Pneumonia due to SARS-associated coronavirus;Hypoxemia;Hypokalemia Presentation: 07/16 08:18 Chief complaint: Patient states: pt presented to ED reporting SOB and abdominal pain. murray pt was dc yesterday 07/15/2021 dx with with PNA and covid. Coronavirus screen: Vaccine status: Patient reports receiving the 2nd dose of the covid vaccine. Client presents with at least one sign or symptom that may indicate coronavirus-19. Standard/surgical mask placed on the client. Provider contacted for isolation considerations. Ebola Screen: No symptoms or risks identified at this time. Initial Sepsis Screen: Does the patient meet any 2 criteria? RR > 20 per min. Systolic BP < 90 mmHg. Does the patient have a suspected source of infection? Yes: Other: recent dx pna and covid. Risk Assessment: Do you want to hurt yourself or someone else? Patient reports no desire to harm self or others. Onset of symptoms is unknown. 08:18 Method Of Arrival: EMS: [facility] murray 08:18 Acuity: KERRY 2 murray 08:18 Acuity: KERRY 3 murray Triage Assessment: 08:23 General: Appears comfortable, Behavior is calm, cooperative. Respiratory: Onset: The murray symptoms/episode began/occurred gradually, the patient has moderate shortness of breath. Historical: - Allergies: 09:35 PENICILLINS; murray 09:35 Lisinopril; murray 09:35 metformin; murray - Home Meds: 09:21 hydrochlorothiazide 25 mg Oral tab 1 tab once daily [Active]; diltiazem HCl 240 mg Oral murray CDER 1 cap once daily [Active]; fentanyl 12 mcg/hr Topical pt72 1 patch every 72 hours [Active]; megestrol 20 mg Oral tab 1 tab daily [Active]; atorvastatin 40 mg oral tab 1 tab once daily [Active]; famotidine 20 mg Oral tab 1 tab 2 times per day [Active]; - Immunization history:: Adult Immunizations up to date. - Social history:: Smoking status: Patient denies any tobacco usage or history of. Screenin:22 Abuse screen: Denies threats or abuse. Denies injuries from another. Nutritional murray screening: No deficits noted. Tuberculosis screening: No symptoms or risk factors identified. Fall Risk IV access (20 points). Assessment: 08:21 Pain: Complains of pain in abdomen. Cardiovascular: No deficits noted. Cardiovascular: murray Rhythm is regular. Respiratory: Reports shortness of breath on exertion cough that is Airway is patent Respiratory effort is shallow, Breath sounds are diminished bilaterally. 12:41 Reassessment: call spouse Liv [phone] no answer left V/M. murray Vital Signs: 08:18 BP 138 / 79; Pulse 109; Resp 22; Pulse Ox 96% on 4 lpm NC; murray 08:25 BP 133 / 70; Pulse 105; Resp 22; Pulse Ox 96% on NC; murray 09:28 BP 119 / 68; Pulse 87; Resp 18; Pulse Ox 94% on 2 lpm NC; murray 10:11 BP 124 / 69; Pulse 98; Resp 18; Pulse Ox 94% on NC; Weight 67.59 kg; Height 5 ft. 10 murray in. (177.80 cm); 11:40 BP 130 / 72; Pulse 100; Resp 18; Pulse Ox 95% on 4 lpm NC; murray 12:41 BP 111 / 64; Pulse 103; Resp 18; Pulse Ox 94% on 4 lpm NC; murray 10:11 Body Mass Index 21.38 (67.59 kg, 177.80 cm) murray ED Course: 07:44 Patient arrived in ED. ap3 07:44 Pj Amaya PA is PHCP. cp 07:44 Pj Orlando MD is Attending Physician. cp 08:03 Erica Real is Primary Nurse. murray 08:20 XRAY Chest (1 view) In Process Unspecified. EDMS 08:21 Triage completed. murray 08:22 Patient has correct armband on for positive identification. Placed in gown. Bed in low murray position. 08:22 No provider procedures requiring assistance completed. Inserted saline lock: 20 gauge murray in left antecubital area, using aseptic technique. 08:23 Arm band placed on right wrist. murray 08:23 Liver (Hepatic) Function Sent. murray 08:23 Magnesium Sent. murray 08:23 Basic Metabolic Panel Sent. murray 08:23 CBC with Automated Diff Sent. murray 08:24 Blood Culture Adult (2) Sent. murray 08:24 Lactate Sent. murray 08:24 Ferritin Sent. murray 08:24 Procalcitonin Sent. murray 08:24 CRP Sent. murray 08:24 Basic Metabolic Panel Sent. murray 08:24 CBC with Diff Sent. murray 08:24 LFT's Sent. murray 08:24 Magnesium Sent. murray 08:25 NT PRO-BNP Sent. murray 08:25 PT-INR Sent. murray 08:25 Troponin (emerg Dept Use Only) Sent. murray 09:17 Inserted saline lock: 22 gauge in right wrist, using aseptic technique. jl7 09:17 IV discontinued, intact, bleeding controlled, No redness/swelling at site. Pressure jl7 dressing applied, left AC IV moved. 09:30 Manual Differential Sent. murray 10:05 Liver (Hepatic) Function Sent. murray 10:05 Magnesium Sent. murray 10:05 Basic Metabolic Panel Sent. murray 10:05 Blood Culture Adult (2) Sent. murray 10:05 Ferritin Sent. murray 10:05 CRP Sent. murray 10:05 NT PRO-BNP Sent. murray 10:05 Troponin (emerg Dept Use Only) Sent. murray 10:40 CT Chest For PE Angio In Process Unspecified. EDMS 10:40 CT Abd/Pelvis - IV Contrast Only In Process Unspecified. EDMS 11:13 Fred Duvall is Hospitalizing Provider. cp 11:42 Inserted saline lock: IV discontinued, 20g lac was dc. murray Administered Medications: 08:39 CANCELLED (Physician Discretion): NS 0.9% 1000 ml IV at 1 bolus Per protocol; 1000 mL cp bolus 08:40 Drug: morphine 4 mg Route: IVP; Site: left antecubital; murray 12:05 Follow up: Response: No adverse reaction murray 08:40 Drug: Zofran (Ondansetron) 4 mg Route: IVP; Site: left antecubital; murray 12:05 Follow up: Response: No adverse reaction murray 09:30 Drug: LevaQUIN (levofloxacin) 750 mg Volume: 150 ml; Route: IVPB; Infused Over: 90 murray mins; Site: right forearm; 12:47 Follow up: IV Status: Completed infusion murray 09:30 Drug: NS 0.9% 500 ml Route: IV; Rate: bolus; Site: right forearm; murray 15:43 Follow up: IV Status: Completed infusion jh5 09:33 Drug: Dexamethasone 6 mg Route: IVP; Site: right forearm; murray 10:05 Follow up: Response: No adverse reaction murray Outcome: 11:14 Decision to Hospitalize by Provider. cp 16:07 Patient left the ED. jl7 Signatures: Dispatcher [employer] EDMS Pj Amaya PA PA cp Leal, Jahala RN RN jl7 Lolita Mitchell RN RN ap3 Leeanne Solitario RN RN jh5 Courtney-StageErica carnes Corrections: (The following items were deleted from the chart) 08:22 08:22 PMHx: Hypertension; murray murray 08:22 08:22 PMHx: CAD; murray murray 08:22 08:22 PMHx: Diabetes - NIDDM; murray murray 08: 08:22 PMHx: TIA; murray murray 08:22 08:22 PMHx: brain cancer; murray murray 08:22 08:22 PSHx: Brain; murray murray 09:40 08:22 Allergies: PENICILLINS [Inactive]; murray murray 09:40 08:22 Allergies: Lisinopril [Inactive]; murray murray 09:40 08:22 Allergies: metformin [Inactive]; murray murray
--- NOTE | 2021-07-16 11:19 | RAD REPORT ---
EXAM DESCRIPTION: CTAbdomen Pelvis W Contrast - 07/16/2021 10:40 am CLINICAL HISTORY: ABD PAIN COMPARISON: Abdomen Pelvis W Contrast dated 01/11/2016; CT ABD PELVIS W CONTRAST dated 04/08/2014; C hest For Pe Angio dated 07/14/2021 TECHNIQUE: CT of the abdomen and pelvis was performed. All CT scans are performed using dose optimization technique as appropriate and may include automated exposure control or mA/KV adjustment according to patient size. FINDINGS: Lower chest: Airspace disease in lung bases and adenopathy. Reference same-day chest CT. Liver: No acute abnormality or suspicious lesions. Biliary: No biliary ductal dilatation. Stomach: No significant focal abnormality. Duodenum: No significant focal abnormality. Pancreas: No significant abnormality. Spleen: No significant abnormality. Adrenal: No suspicious lesions. Kidney/ureter: No hydronephrosis. No renal calculi. Retroperitoneum: Retroperitoneal lymphadenopathy including a right external iliac node measuring 2 cm . Vascular: No aneurysm. Bowel: No significant focal abnormality. Peritoneum: No ascites or free air. Bladder: Grossly unremarkable. Reproductive: No adnexal masses. Bones: No acute fracture. Other: Right inguinal lymphadenopathy. For example, there is a right inguinal lymph node measuring 18 millimeters. IMPRESSION: No acute intra-abdominal or pelvic finding. Right inguinal and iliac chain lymphadenopat hy consistent with metastatic disease. The right inguinal lymph node would likely be the most amenabl e to biopsy for histologic confirmation.
--- NOTE | 2021-07-16 11:24 | RAD REPORT ---
EXAM DESCRIPTION: CT - Chest For Pe Angio - 07/16/2021 10:40 am CLINICAL HISTORY: SOB COMPARISON: Chest For Pe Angio dated 07/14/2021; Thorax Wo Con dated 07/13/2021 FINDINGS: Chest Wall: Thyroid nodules noted, the largest visualized measures 18 millimeters. Lungs: Widespread ground-glass opacities throughout the left lung, right middle lobe, and right lower lobe. Right upper lobe suprahilar mass/consolidation again identified and difficult to measure as th ere is adjacent consolidated and atelectatic lung. It is contiguous with the right hilum, Pleura: No significant effusions or pneumothorax. Mediastinum/nolan: Pathologic mediastinal adenopathy including a 3.6 cm subcarinal lymph node. The rig ht upper lobe lesion is contiguous with the right hilum. Bilateral hilar adenopathy. Pulmonary arteries/Aorta: No filling defect identified. Note that there is limitation due to respirat ory motion. No aortic aneurysm. Heart: No significant pericardial effusion. Normal heart size. Upper abdomen: No acute abnormality. Bones: No acute abnormality. All CT scans are performed using dose optimization technique as appropriate and may include automated exposure control or mA/KV adjustment according to patient size. IMPRESSION: No central pulmonary embolus. Limited evaluation of the segmental and subsegmental pulmo nary arteries due to motion. Widespread airspace disease bilaterally which is similar to 07/14/2021 and presumably secondary to pn eumonia, possibly Covid-19. Metastatic disease possibly from a right-sided lung primary. The most easily accessible site for hist ologic confirmation would be a right inguinal lymph node which is pathologically enlarged and could b e biopsied with ultrasound.
--- NOTE | 2021-07-16 12:21 | P.HP ---
Certification for Inpatient Patient admitted to: Inpatient With expected LOS: >2 Midnights Practitioner: I am a practitioner with admitting privileges, knowledge of patient current condition, hospital course, and medical plan of care. Services: Services provided to patient in accordance with Admission requirements found in Title 42 Section 412.3 of the Code of Federal Regulations Patient History Date of Service: 07/16/21 Reason for admission: Shortness of breath History of Present Illness: 65-year-old gentleman with a history of diabetes mellitus type 2, metastatic brain cancer, discharged from hospital yesterday after hospitalization for Covid pneumonia return to the emergency department with a complaint of progressive shortness of breath. Patient noted to be hypoxic on room air and was requiring up to 4 L of oxygen by nasal cannula. CTA thorax demonstrated bilateral infiltrates similar to imaging done on 07/14. It also shows a right lung mass. Patient admitted for further management. Allergies lisinopril Allergy (Verified 11/19/17 03:40) Unknown Penicillins Allergy (Verified 11/19/17 03:40) Unknown Pe Allergy (Uncoded 01/11/16 09:12) Unknown Home Medications: Albuterol Sulfate [Proair Hfa] 2 puff IH QID PRN 07/13/21 Aspirin 81 mg PO DAILY 07/13/21 Atorvastatin Calcium [Lipitor] 40 mg PO BEDTIME 07/13/21 Diclofenac Sodium [Voltaren Arthritis Pain] 20 gm TP TID 07/13/21 Famotidine [Pepcid*] 20 mg PO BID 07/13/21 Fluconazole [Diflucan] 100 mg PO DAILY 07/13/21 Gabapentin 300 mg PO TID 07/13/21 Insulin Aspart [Novolog Flexpen] 4 unit SQ TID 07/13/21 Insulin Detemir [Levemir Flextouch] 15 unit SQ DAILY 07/13/21 Levetiracetam [Keppra] 500 mg PO BID 07/13/21 Megestrol [Megace*] 40 mg PO DAILY 07/13/21 Memantine HCl 20 mg PO DAILY 07/13/21 Morphine Oral Syrup [Morphine Oral Syrup*] 10 mg PO Q4HP PRN 07/13/21 Nut.tx.gluc Intol,Lf,Soy/Fiber [Boost Glucose Control] 237 ml PO BID 07/13/21 Polyethylene Glycol 3350 [Miralax] 17 gm PO DAILY 07/13/21 fentaNYL [Fentanyl] 1 each TD Q72H 07/13/21 Amlodipine [Norvasc*] 10 mg PO DAILY #30 tab 07/15/21 Benzonatate [Tessalon Perle*] 100 mg PO TID PRN #30 cap 07/15/21 Dexamethasone [Decadron] 6 mg PO DAILY #5 tablet 07/15/21 Guaifenesin [Mucinex] 1,200 mg PO BID #20 tbmp.12hr 07/15/21 Levofloxacin [Levaquin] 500 mg PO DAILY #7 tablet 07/15/21 - Past Medical/Surgical History Diabetic: Yes -: HTN -: DM -: CAD -: metastatic brain cancer -: dementia -: Right testicle removed -: Piece of metal removed from right leg - Family History Mother -: Hypertension, Diabetes Notes: Alzeimers Father -: Heart disease Notes: heart attack Brother -: Hypertension, Diabetes Sister -: Hypertension, Diabetes - Social History Alcohol use: No CD- Drugs: Yes Caffeine use: No Review of Systems Other: Except as documented, all other systems reviewed and negative. Physical Examination - Physical Exam General: Alert, Mild distress HEENT: Atraumatic, Mucous membr. moist/pink, Sclerae nonicteric Neck: Supple, JVD not distended Respiratory: Normal air movement, Crackles/rales (Bibasilar crackles) Cardiovascular: No edema, Regular rate/rhythm, Normal S1 S2 Gastrointestinal: Normal bowel sounds, Soft and benign, Non-distended, No tenderness Musculoskeletal: No swelling, No tenderness Integumentary: No rashes, No erythema, No cyanosis Neurological: Normal speech, Normal strength at 5/5 x4 extr, Cranial nerves 3-12 intact Lymphatics: No axilla or inguinal lymphadenopathy - Studies Laboratory Data (last 24 hrs) 07/16/21 08:45: PT 12.2, INR 1.06 07/16/21 08:45: WBC 16.30 H, Hgb 12.4 L, Hct 37.3 L, Plt Count 398 07/16/21 08:45: Sodium 136, Potassium 2.9 L*, BUN 6 L, Creatinine 0.48 L, Glucose 82, Magnesium 2.0, Total Bilirubin 0.7, AST 30, ALT 32, Alkaline Phosphatase 94 Assessment and Plan - Problems (Diagnosis) (1) Pneumonia due to COVID-19 virus Current Visit: Yes Status: Acute (2) Acute respiratory failure with hypoxia Current Visit: Yes Status: Acute (3) Mass of right lung Current Visit: No Status: Acute (4) Brain cancer Current Visit: No Status: Chronic Qualifiers: Malignant neoplasm of brain location: unspecified location Qualified Code(s): C71.9 - Malignant neoplasm of brain, unspecified (5) Type 2 diabetes mellitus Onset Date: 11/19/17 Current Visit: No Status: Chronic Qualifiers: Diabetes mellitus custodial insulin use: without custodial use Diabetes mellitus complication status: without complication Qualified Code(s): E11.9 - Type 2 diabetes mellitus without complications - Plan Admit to the medical floor. Covid pneumonia protocol initiated with IV dexamethasone Vitamins and zinc supplementation. Insulin sliding scale and Lantus insulin for glucose management. Titrate oxygen. Levaquin for possible secondary bacterial pneumonia. Patient with high risk for thromboembolism given history of metastatic cancer. DVT prophylaxis with Eliquis 2.5 mg twice daily. Monitor inflammatory markers. Diet as tolerated. - Advance Directives Does patient have a Living Will: No Does patient have a Durable POA for Healthcare: No
[2021-07-16] MEDS ORDERED: D50W 25 GM/50 ML SYRINGE IV PRN (16:16)
[2021-07-16] MEDS ORDERED: GLUCAGON 1 MG/VIAL IM PRN (16:16)
[2021-07-16] MEDS ORDERED: ONDANSETRON 4 MG/2 ML VIAL IV PRN (16:16)
[2021-07-16 16:29] VITALS: BMI 21.4
[2021-07-16] MEDS: MORPHINE 2 MG/ML SYR IV PRN (17:38)
[2021-07-16] MEDS: INSULIN -REGULAR HUMAN 50 UNIT/0.5 ML ML SQ SCH ×2 (17:38→20:14)
[2021-07-16] MEDS: ACETAMINOPHEN 500 MG TAB PO PRN (20:12)
[2021-07-16] MEDS: FAMOTIDINE 20 MG/2 ML VIAL IV SCH (20:12)
[2021-07-16] MEDS: APIXABAN 2.5 MG TABLET PO SCH (20:12)
[2021-07-17] MEDS: MORPHINE 2 MG/ML SYR IV PRN ×4 (00:55→13:22)
[2021-07-17 04:03] LABS: Absolute Lymphocytes (CBC) 0.6 K/uL (0.7-4.9); Lymphocytes % 5.2 % (15.3-44.8); MPV 6.6 fL (7.6-11.3); RBC Red Blood Cell Count 3.85 M/uL (4.33-5.43)
[2021-07-17 04:16] LABS: ALT/SGPT 25 U/L (12-78); AST/SGOT 23 U/L (15-37); Albumin 1.5 g/dL (3.4-5.0); Alkaline Phosphatase 82 U/L (45-117); BUN Blood Urea Nitrogen 5 mg/dL (7-18); Bicarbonate 24 mmol/L (21-32); Bilirubin Total 0.7 mg/dL (0.2-1.0); Ferritin 1787.4 ng/mL (26-388); Glucose Level 111 mg/dL (74-106); HDL Cholesterol 42 mg/dL (40-60); LDL Cholesterol, Calculated 52 (<130); Potassium 3.5 mmol/L (3.5-5.1); Sodium Level 135 mmol/L (136-145)
[2021-07-17] MEDS ORDERED: POTASSIUM CL SA 10 MEQ TAB PO ONE (06:00)
--- NOTE | 2021-07-17 06:20 | P.PN ---
Date of Service: 07/17/21 Subjective: Feels as though he is breathing more comfortably, continues with cough, chronic pain all over Urinating without issue, no new concerns/complaints ROS: 10 point ROS as noted above, otherwise negative Physical exam GEN: Alert, oriented HEENT: Normal conjunctiva, sclera anicteric CV: Regular rate and rhythm, no edema Pulm: Nonlabored respirations on 6L NC, +dry cough, b/l coarse breath sounds ABD: Soft, nontender, nondistended Integumentary: No rashes Neuro: Normal speech, normal affect Problem List Acute hypoxemic respiratory failure secondary to COVID-19 pneumonia Right lung mass Metastatic brain cancer Diabetes mellitus type 2, insulin-dependent HTN CAD Chronic pain continue Covid pneumonia protocol with IV dexamethason, vitamins and zinc supplementation Insulin sliding scale and Lantus insulin for glucose management. Titrate oxygen. Levaquin for possible secondary bacterial pneumonia. Patient with high risk for thromboembolism given history of metastatic cancer. DVT prophylaxis with Eliquis 2.5 mg twice daily. Inflammatory markers increased, patient clinically feels improved Diet as tolerated. pulmonology consulted SOILS ANALYST reviewed, patient's morphine restarted Dispo: Anticipate hospitalization > 2 days Time Spent Managing Pts Care (In Minutes): 35
[2021-07-17] MEDS: INSULIN -REGULAR HUMAN 50 UNIT/0.5 ML ML SQ SCH ×4 (07:30→21:25)
--- NOTE | 2021-07-17 07:38 | EKG ---
Test Date: 2021-07-16 Test Time: 07:46:23 Director Of Social Services: MATEO MEASUREMENT RESULTS: Intervals: Rate: 110 CO: 118 QRSD: 86 QT: 292 QTc: 395 [place]: P: 34 CO: 118 QRS: -4 T: 118 INTERPRETIVE STATEMENTS: Sinus tachycardia Possible Left atrial enlargement Left ventricular hypertrophy with repolarization abnormality Abnormal ECG Compared to ECG 07/12/2021 21:34:47 Early repolarization now present Sinus rhythm no longer present ST (T wave) deviation no longer present Prolonged QT interval no longer present Electronically Signed On 07-17-21 07:35:12 POURER METAL by Terrence Bradford
[2021-07-17] MEDS: dexAMETHasone 10 MG/ML VIAL IV SCH (07:56)
[2021-07-17] MEDS: APIXABAN 2.5 MG TABLET PO SCH ×2 (07:57→21:27)
[2021-07-17] MEDS: FAMOTIDINE 20 MG/2 ML VIAL IV SCH (07:57)
[2021-07-17] MEDS ORDERED: TRAMADOL HCL 50 MG TAB PO PRN (10:45)
[2021-07-17] MEDS ORDERED: DICLOFENAC SODIUM TOP PRN (10:48)
[2021-07-17] MEDS ORDERED: ALBUTEROL SULFATE AD IH PRN (10:48)
[2021-07-17] MEDS: MORPHINE 15 MG IR TAB PO PRN ×2 (11:49→21:26)
[2021-07-17] MEDS: GABAPENTIN 300 MG CAP PO SCH ×2 (13:23→21:26)
[2021-07-17] MEDS: INSULIN GLARGINE 100 UNIT/ML SQ SCH (17:17)
[2021-07-17] MEDS: FAMOTIDINE 20 MG TAB PO SCH (21:26)
[2021-07-17] MEDS: levETIRAcetam 500 MG TAB PO SCH (21:26)
[2021-07-17] MEDS: ATORVASTATIN 40 MG TAB PO SCH (21:27)
[2021-07-18 06:18] LABS: MPV 6.8 fL (7.6-11.3); RBC Red Blood Cell Count 4.05 M/uL (4.33-5.43)
--- NOTE | 2021-07-18 06:34 | P.PN ---
Date of Service: 07/18/21 Subjective: Patient reports feeling about the same as yesterday. Continues with cough, oxygen supplementation increasing Patient more tachycardic as well. Reports some improvement in pain with reinitiation of home pain medication ROS: 10 point ROS as noted above, otherwise negative Physical exam GEN: Alert, oriented HEENT: Normal conjunctiva, sclera anicteric CV: Sinus tachycardia, HR: 110, no edema Pulm: Slightly tachypneic on 10 L nasal cannula, dry cough ABD: Soft, nontender, nondistended Integumentary: No rashes Neuro: Normal speech, normal affect Problem List Acute hypoxemic respiratory failure secondary to COVID-19 pneumonia Right lung mass Metastatic brain cancer Diabetes mellitus type 2, insulin-dependent HTN CAD Chronic pain Inflammatory markers elevated, oxygen supplementation increasing Discussed with pulmonology over the phone. Recommended changing dexamethasone to Solu-Medrol at high dose, no antibiotics, and initiation of baricitinib if he qualifies. Continue vitamin supplementation. continue Covid pneumonia protocol with IV dexamethason, vitamins and zinc supplementation Insulin sliding scale and Lantus insulin for glucose management. Patient with high risk for thromboembolism given history of metastatic cancer. DVT prophylaxis with Eliquis 2.5 mg twice daily. Inflammatory markers with some slight improvement, still significantly elevated Diet as tolerated. ELECTRIC CLOCK MECHANIC reviewed, patient's morphine restarted Dispo: Anticipate hospitalization > 2 days Guarded prognosis Reviewed CODE STATUS with patient, states he is full code. He is okay with being intubated, stating he "would want a chance to live" Time Spent Managing Pts Care (In Minutes): 35
[2021-07-18 06:38] LABS: ALT/SGPT 23 U/L (12-78); AST/SGOT 21 U/L (15-37); Albumin 1.6 g/dL (3.4-5.0); Alkaline Phosphatase 87 U/L (45-117); BUN Blood Urea Nitrogen 6 mg/dL (7-18); Bicarbonate 25 mmol/L (21-32); Bilirubin Total 0.9 mg/dL (0.2-1.0); Ferritin 1762.5 ng/mL (26-388); Glucose Level 70 mg/dL (74-106); Potassium 3.4 mmol/L (3.5-5.1); Protein, Total 6.3 g/dL (6.4-8.2); Sodium Level 136 mmol/L (136-145)
[2021-07-18 06:45] LABS: Urine Appearance CLEAR (Clear); Urine Bilirubin NEGATIVE (Negative); Urine Blood NEGATIVE (Negative); Urine Color DK YELLOW (Yellow); Urine Glucose 3+ (Negative); Urine Protein 1+ (Negative); Urine Specific Gravity >=1.030 (1.005-1.030); Urine pH 6.5 (5.0-7.0)
[2021-07-18 06:49] LABS: Urine Microscopic Reflex ORDER UMIC
[2021-07-18 07:01] LABS: Urine Bacteria <20 /HPF (NONE SEEN); Urine Mucus 1+ /HPF (NONE SEEN); Urine RBC <5 /HPF (NONE SEEN)
[2021-07-18] MEDS: INSULIN -REGULAR HUMAN 50 UNIT/0.5 ML ML SQ SCH ×4 (07:30→20:51)
[2021-07-18] MEDS: MEMANTINE HCL 10 MG TABLET PO SCH (07:52)
[2021-07-18] MEDS: BENZONATATE 100 MG CAP PO PRN (07:53)
[2021-07-18] MEDS: FAMOTIDINE 20 MG TAB PO SCH ×2 (07:53→20:52)
[2021-07-18] MEDS: levETIRAcetam 500 MG TAB PO SCH ×2 (07:55→20:52)
[2021-07-18] MEDS: GABAPENTIN 300 MG CAP PO SCH ×3 (07:55→20:53)
[2021-07-18] MEDS: APIXABAN 2.5 MG TABLET PO SCH ×2 (07:55→20:53)
[2021-07-18] MEDS: ASPIRIN 81 MG CHEWABLE TABLET PO SCH (07:55)
[2021-07-18] MEDS ORDERED: POTASSIUM CL SA 10 MEQ TAB PO ONE (09:00)
[2021-07-18] MEDS: dexAMETHasone 10 MG/ML VIAL IV SCH (09:25)
[2021-07-18] MEDS ORDERED: levoFLOXacin 750 MG TAB PO SCH (10:00)
[2021-07-18 10:38] LABS: Arterial Blood Carboxyhemoglob 1.4 % (0-1.5); Blood Gas Oxyhemoglobin 91.5 % (94-97); Blood O2 Saturation 91.5 % (92-98.5)
--- NOTE | 2021-07-18 11:05 | RAD REPORT ---
EXAM DESCRIPTION: RAD - Chest Single View - 07/18/2021 10:20 am CLINICAL HISTORY: worsening hypoxia, COVID Chest pain. COMPARISON: Chest Single View dated 07/16/2021; Chest Single View dated 07/12/2021; Chest Single Vie w dated 11/18/2017; Chest Single View dated 04/18/2017 FINDINGS: Portable technique limits examination quality. Moderate bilateral pulmonary opacities are noted, which have mildly worsened on the right since aki rative study. The heart is upper limit normal in size. No displaced fractures.
[2021-07-18] MEDS: METHYLPREDNISOLONE 125 MG INJ IV SCH ×2 (11:49→18:27)
[2021-07-18] MEDS: BARICITINIB 2 MG TABLET PO SCH (12:49)
[2021-07-18] MEDS: INSULIN GLARGINE 100 UNIT/ML SQ SCH (17:23)
[2021-07-18] MEDS: MORPHINE 2 MG/ML SYR IV PRN ×2 (18:55→22:56)
[2021-07-18] MEDS ORDERED: LORazepam 2 MG/ML VIAL IV ONE (19:00)
[2021-07-18] MEDS ORDERED: LORAZEPAM 1 MG TABLET PO ONE (20:31)
[2021-07-18] MEDS: ATORVASTATIN 40 MG TAB PO SCH (20:52)
[2021-07-18] MEDS: TAMSULOSIN 0.4 MG SR CAP PO SCH (20:52)
[2021-07-18] MEDS ORDERED: LORAZEPAM 1 MG TABLET ONE (21:02)
[2021-07-18] MEDS: MORPHINE 15 MG IR TAB PO PRN (22:30)
[2021-07-19] MEDS: METHYLPREDNISOLONE 125 MG INJ IV SCH ×3 (03:00→18:05)
[2021-07-19 03:25] LABS: Absolute Lymphocytes (CBC) 0.7 K/uL (0.7-4.9); Hematocrit 35.2 % (39.6-49.0); Lymphocytes % 5.9 % (15.3-44.8); MPV 6.8 fL (7.6-11.3)
[2021-07-19 03:48] LABS: ALT/SGPT 29 U/L (12-78); AST/SGOT 25 U/L (15-37); Albumin 1.5 g/dL (3.4-5.0); Alkaline Phosphatase 93 U/L (45-117); BUN Blood Urea Nitrogen 12 mg/dL (7-18); Bicarbonate 25 mmol/L (21-32); Bilirubin Total 0.8 mg/dL (0.2-1.0); Ferritin 1793.4 ng/mL (26-388); Glucose Level 283 mg/dL (74-106); Potassium 4.1 mmol/L (3.5-5.1); Protein, Total 6.3 g/dL (6.4-8.2); Sodium Level 137 mmol/L (136-145)
--- NOTE | 2021-07-19 06:14 | P.PN ---
Date of Service: 07/19/21 Subjective: Patient feels like he cannot breathe/take a deep breath. Oxygen supplementation increasing Inflammatory markers remain elevated Patient and nursing report he has been more anxious, tachycardic Improved with low-dose Ativan last night ROS: 10 point ROS as noted above, otherwise negative Physical exam GEN: Alert, oriented, anxious HEENT: Normal conjunctiva, sclera anicteric CV: Sinus tachycardia, HR: 110, no edema Pulm: Slightly tachypneic on high flow ABD: Soft, nontender, nondistended Integumentary: No rashes Neuro: Normal speech, normal affect Problem List Acute hypoxemic respiratory failure secondary to COVID-19 pneumonia Metastatic lung cancer, (to brain) Diabetes mellitus type 2, insulin-dependent HTN CAD Chronic pain Inflammatory markers elevated, oxygen supplementation increasing Discussed with pulmonology over the phone. Increase steroids to Solu-Medrol at higher doses and started baricitinib on 07/18 Continue vitamin supplementation. Insulin sliding scale and Lantus insulin for glucose management. Titrate as needed Patient with high risk for thromboembolism given history of metastatic cancer. DVT prophylaxis with Eliquis 2.5 mg twice daily. Diet as tolerated. ENGRAVER HAND SOFT METALS reviewed, patient's morphine restarted Ativan for anxiety, seems to be helping with his respirations and heart rate Dispo: Anticipate hospitalization > 2 days Guarded prognosis Reviewed CODE STATUS with patient, states he is full code. States he wants to further think about it and discuss with his family. Patient sister states the last discussion with oncologist was that he should consider hospice Sister states that they felt it would be a "blessing if he made it to [place] this year" Time Spent Managing Pts Care (In Minutes): 35
[2021-07-19] MEDS: INSULIN -REGULAR HUMAN 50 UNIT/0.5 ML ML SQ SCH ×4 (08:13→21:00)
[2021-07-19] MEDS: INSULIN GLARGINE 100 UNIT/ML SQ SCH ×2 (08:15→21:00)
[2021-07-19] MEDS: MORPHINE 15 MG IR TAB PO PRN ×2 (08:15→18:05)
[2021-07-19] MEDS: BARICITINIB 2 MG TABLET PO SCH (08:16)
[2021-07-19] MEDS: levETIRAcetam 500 MG TAB PO SCH ×2 (08:16→19:49)
[2021-07-19] MEDS: BENZONATATE 100 MG CAP PO PRN ×2 (08:16→19:49)
[2021-07-19] MEDS: GABAPENTIN 300 MG CAP PO SCH ×3 (08:16→19:49)
[2021-07-19] MEDS: APIXABAN 2.5 MG TABLET PO SCH ×2 (08:16→19:49)
[2021-07-19] MEDS: MEMANTINE HCL 10 MG TABLET PO SCH (08:16)
[2021-07-19] MEDS: FAMOTIDINE 20 MG TAB PO SCH ×2 (08:16→19:49)
[2021-07-19] MEDS: ASPIRIN 81 MG CHEWABLE TABLET PO SCH (09:49)
[2021-07-19] MEDS: MORPHINE 2 MG/ML SYR IV PRN (11:09)
[2021-07-19] MEDS: TAMSULOSIN 0.4 MG SR CAP PO SCH (19:48)
[2021-07-19] MEDS: ATORVASTATIN 40 MG TAB PO SCH (19:49)
[2021-07-20] MEDS: MORPHINE 2 MG/ML SYR IV PRN (00:38)
[2021-07-20] MEDS: METHYLPREDNISOLONE 125 MG INJ IV SCH ×3 (02:30→18:17)
[2021-07-20] MEDS: MORPHINE 15 MG IR TAB PO PRN ×2 (04:45→19:39)
--- NOTE | 2021-07-20 06:17 | P.PN ---
Date of Service: 07/20/21 Subjective: Patient reports feeling better Seem to respond well to initiation of Ativan as needed yesterday Less anxious, breathing more comfortably Had discussion with family yesterday which she states was "good" Still would want to remain full code, but will continue to consider ROS: 10 point ROS as noted above, otherwise negative Physical exam GEN: Alert, oriented, NAD HEENT: Normal conjunctiva, sclera anicteric CV: Sinus tachycardia, HR: 90-100, no edema Pulm: Slightly tachypneic on high flow ABD: Soft, nontender, nondistended Integumentary: No rashes Neuro: Normal speech, normal affect Problem List Acute hypoxemic respiratory failure secondary to COVID-19 pneumonia Metastatic lung cancer, (to brain) Diabetes mellitus type 2, insulin-dependent HTN CAD Chronic pain Inflammatory markers slightly improved Steroids increased to higher doses/Solu-Medrol and started baricitinib on 07/18 due to worsening of symptoms and inflammatory markers Pulmonology consulted Continue vitamin supplementation Titrate insulin/Lantus for better glucose control Patient with high risk for thromboembolism given history of metastatic cancer. DVT prophylaxis with Eliquis 2.5 mg twice daily. Diet as tolerated. DEVELOPMENT TECHNICAL LEAD reviewed, patient's morphine restarted on admission Ativan for anxiety, seems to be helping with his respirations and heart rate Dispo: Anticipate hospitalization > 2 days Guarded prognosis Reviewed CODE STATUS with patient, states he is full code. Patient sister states the last discussion with oncologist was that he should consider hospice Sister states that they felt it would be a "blessing if he made it to [place] this year" Time Spent Managing Pts Care (In Minutes): 35
[2021-07-20 06:29] LABS: Hematocrit 35.5 % (39.6-49.0); Lymphocytes % 6.6 % (15.3-44.8); MPV 6.7 fL (7.6-11.3); RBC Red Blood Cell Count 3.94 M/uL (4.33-5.43)
[2021-07-20 06:56] LABS: BUN Blood Urea Nitrogen 15 mg/dL (7-18); Bicarbonate 27 mmol/L (21-32); Glucose Level 267 mg/dL (74-106); Potassium 4.1 mmol/L (3.5-5.1); Sodium Level 138 mmol/L (136-145)
[2021-07-20 06:59] LABS: Blood Morphology Comment NOT SEEN (NOT SEEN); Platelet Estimate INCR; White Blood Cell Scan OK (OK)
--- NOTE | 2021-07-20 07:14 | RAD REPORT ---
EXAM DESCRIPTION: RAD - Chest Single View - 07/20/2021 5:47 am CLINICAL HISTORY: worsening hypoxia, COVID COMPARISON: Chest Single View dated 07/18/2021; Chest Single View dated 07/16/2021; Chest Single Vie w dated 07/12/2021; Chest Single View dated 11/18/2017; Thorax Wo Con dated 07/13/2021; Chest For Pe A ngio dated 07/16/2021 FINDINGS: Lines: None. Lungs: Grossly similar multifocal opacities, confluent in the mid and lower lobes bilaterally. Pleural: No significant pleural effusions or pneumothorax. Cardiac: Cardiomegaly. Bones: No acute fractures. Other: IMPRESSION: Unchanged aeration of the lungs with multifocal airspace opacities, left greater than ri ght.
[2021-07-20] MEDS: FAMOTIDINE 20 MG TAB PO SCH ×2 (08:21→19:39)
[2021-07-20] MEDS: ASPIRIN 81 MG CHEWABLE TABLET PO SCH (08:21)
[2021-07-20] MEDS: MEMANTINE HCL 10 MG TABLET PO SCH (08:21)
[2021-07-20] MEDS: APIXABAN 2.5 MG TABLET PO SCH ×2 (08:21→19:39)
[2021-07-20] MEDS: levETIRAcetam 500 MG TAB PO SCH ×2 (08:21→19:38)
[2021-07-20] MEDS: GABAPENTIN 300 MG CAP PO SCH ×4 (08:21→19:39)
[2021-07-20] MEDS: INSULIN GLARGINE 100 UNIT/ML SQ SCH ×2 (08:22→19:21)
[2021-07-20] MEDS: BARICITINIB 2 MG TABLET PO SCH (08:22)
[2021-07-20] MEDS: INSULIN -REGULAR HUMAN 50 UNIT/0.5 ML ML SQ SCH ×4 (08:22→19:20)
[2021-07-20] MEDS: LORazepam 2 MG/ML VIAL IV PRN (12:06)
[2021-07-20] MEDS: ATORVASTATIN 40 MG TAB PO SCH (19:38)
[2021-07-20] MEDS: TAMSULOSIN 0.4 MG SR CAP PO SCH (19:39)
[2021-07-20] MEDS: BENZONATATE 100 MG CAP PO PRN (19:39)
[2021-07-21] MEDS: METHYLPREDNISOLONE 125 MG INJ IV SCH ×3 (03:00→20:04)
[2021-07-21 03:41] LABS: BUN Blood Urea Nitrogen 18 mg/dL (7-18); Bicarbonate 27 mmol/L (21-32); Glucose Level 180 mg/dL (74-106); Potassium 4.4 mmol/L (3.5-5.1); Sodium Level 140 mmol/L (136-145)
[2021-07-21] MEDS: ASPIRIN 81 MG CHEWABLE TABLET PO SCH (07:54)
[2021-07-21] MEDS: FAMOTIDINE 20 MG TAB PO SCH ×2 (07:54→20:05)
[2021-07-21] MEDS: BENZONATATE 100 MG CAP PO PRN (07:54)
[2021-07-21] MEDS: levETIRAcetam 500 MG TAB PO SCH ×2 (07:54→20:04)
[2021-07-21] MEDS: GABAPENTIN 300 MG CAP PO SCH ×3 (07:54→20:05)
[2021-07-21] MEDS: APIXABAN 2.5 MG TABLET PO SCH ×2 (07:54→20:05)
[2021-07-21] MEDS: MEMANTINE HCL 10 MG TABLET PO SCH (07:54)
[2021-07-21] MEDS: MORPHINE 2 MG/ML SYR IV PRN (07:55)
[2021-07-21] MEDS: INSULIN -REGULAR HUMAN 50 UNIT/0.5 ML ML SQ SCH ×4 (07:58→20:05)
[2021-07-21] MEDS: INSULIN GLARGINE 100 UNIT/ML SQ SCH ×2 (07:59→21:06)
[2021-07-21] MEDS: BARICITINIB 2 MG TABLET PO SCH (08:04)
--- NOTE | 2021-07-21 09:05 | P.PN ---
Subjective Date of Service: 07/21/21 (Hospitalist) Chief Complaint: Coronavirus pneumonia Subjective: Improving (Patient is doing well he is improving eating and drinking less short of breath than 75% FiO2) Review of Systems 10-point ROS is otherwise unremarkable General: Weakness Respiratory: Shortness of Breath Physical Examination - Vital Signs Temperature: 97.3 F Blood Pressure: 131/78 Pulse: 81 Respirations: 18 Pulse Ox (%): 91 - Physical Exam General: Alert, In no apparent distress, Oriented x3 Respiratory: Clear to auscultation bilaterally, Diminished Cardiovascular: No edema, Regular rate/rhythm, Normal S1 S2 Capillary refill: >2 Seconds Gastrointestinal: Soft and benign Neurological: Normal speech - Studies Microbiology Data (last 24 hrs): 07/16/21 08:00 Blood - Blood Anaerobic Blood Culture - Final 07/16/21 08:00 Blood - Blood Gram Stain - Final Assessment & Plan - Problems (Diagnosis) (1) Pneumonia due to COVID-19 virus Current Visit: Yes Status: Acute Plan: Patient is 65 years of age with metastatic lung cancer admitted with coronavirus pneumonia chest x-ray consistent with his coronavirus pneumonia he is improving reduce the dose of Solu-Medrol patient is also on Barcitinib
[2021-07-21] MEDS: LORazepam 2 MG/ML VIAL IV PRN (13:35)
[2021-07-21] MEDS: ATORVASTATIN 40 MG TAB PO SCH (20:05)
[2021-07-21] MEDS: TAMSULOSIN 0.4 MG SR CAP PO SCH (20:05)
[2021-07-22 06:23] LABS: Blood O2 Saturation 93.3 % (92-98.5)
[2021-07-22 06:24] LABS: Arterial Blood Carboxyhemoglob 1.3 % (0-1.5); Blood Gas Oxyhemoglobin 91.2 % (94-97)
[2021-07-22 06:24] LABS: Magnesium 2.3 mg/dL (1.8-2.4); Phosphorus 2.7 mg/dL (2.5-4.9)
[2021-07-22 06:45] LABS: Absolute Lymphocytes (CBC) 0.6 K/uL (0.7-4.9); Hematocrit 32.6 % (39.6-49.0); Lymphocytes % 2.9 % (15.3-44.8); MPV 6.8 fL (7.6-11.3); RBC Red Blood Cell Count 3.68 M/uL (4.33-5.43)
[2021-07-22] MEDS: INSULIN -REGULAR HUMAN 50 UNIT/0.5 ML ML SQ SCH ×4 (07:30→20:33)
[2021-07-22 08:05] LABS: Anisocytosis 1+; Blood Morphology Comment NOTED (NOT SEEN); Platelet Estimate ADEQ
[2021-07-22] MEDS: ASPIRIN 81 MG CHEWABLE TABLET PO SCH (08:48)
[2021-07-22] MEDS: BENZONATATE 100 MG CAP PO PRN (08:48)
[2021-07-22] MEDS: levETIRAcetam 500 MG TAB PO SCH ×2 (08:48→20:31)
[2021-07-22] MEDS: APIXABAN 2.5 MG TABLET PO SCH ×2 (08:49→20:31)
[2021-07-22] MEDS: FAMOTIDINE 20 MG TAB PO SCH ×2 (08:49→20:31)
[2021-07-22] MEDS: GABAPENTIN 300 MG CAP PO SCH ×3 (08:49→20:31)
[2021-07-22] MEDS: METHYLPREDNISOLONE 125 MG INJ IV SCH ×2 (08:49→20:34)
[2021-07-22] MEDS: MEMANTINE HCL 10 MG TABLET PO SCH (08:50)
[2021-07-22] MEDS: INSULIN GLARGINE 100 UNIT/ML SQ SCH ×2 (08:52→20:34)
[2021-07-22] MEDS: BARICITINIB 2 MG TABLET PO SCH (08:59)
[2021-07-22] MEDS: MORPHINE 15 MG IR TAB PO PRN ×2 (10:57→20:34)
--- NOTE | 2021-07-22 13:06 | P.PN ---
Subjective Date of Service: 07/22/21 Chief Complaint: Coronavirus pneumonia Subjective: Worsening (Patient continues to remain very hypoxic he is delirious today) Patient continues to remain very hypoxic he is delirious today Review of Systems is unable to be obtained Physical Examination - Vital Signs Temperature: 99.7 F Blood Pressure: 150/73 Pulse: 118 Respirations: 19 Pulse Ox (%): 94 - Physical Exam General: Delirious Respiratory: Expiratory wheezes, Rhonchi/gurgles Cardiovascular: No edema, Regular rate/rhythm - Studies Microbiology Data (last 24 hrs): 07/16/21 08:50 Blood - Blood Aerobic Blood Culture - Final No growth in 5 days. 07/16/21 08:50 Blood - Blood Anaerobic Blood Culture - Final No growth in 5 days. 07/16/21 08:00 Blood - Blood Aerobic Blood Culture - Final No growth in 5 days. 07/16/21 08:00 Blood - Blood Anaerobic Blood Culture - Final 07/16/21 08:00 Blood - Blood Gram Stain - Final Assessment & Plan - Problems (Diagnosis) (1) Pneumonia due to COVID-19 virus Current Visit: Yes Status: Acute Plan: Patient is not doing well is more delirious today his oxygen requirements have remained very high his prognosis is overall very poor try and get hold of family members regarding DNR patient is unable to make any decisions right now labs chemistries reviewed his white count is very elevated labs reviewed/patient has refused DNR before in view of his underlying metastatic cancer and coronavirus infection I discussed with the sister and they agree with DNR for now as his condition is gotten worse
[2021-07-22] MEDS: TAMSULOSIN 0.4 MG SR CAP PO SCH (20:31)
[2021-07-22] MEDS: ATORVASTATIN 40 MG TAB PO SCH (20:31)
--- NOTE | 2021-07-23 06:30 | P.PN ---
Date of Service: 07/23/21 Subjective: Had episode of difficulty urinating overnight and was straight cathed Patient remains on 80% FiO2 on high flow He reports feeling better today Breathing more comfortably, less anxiety, pain control improved Continues with good appetite, ROS: 10 point ROS as noted above, otherwise negative Physical exam GEN: Alert, oriented, NAD HEENT: Normal conjunctiva, sclera anicteric CV: Regular rate and rhythm, no edema Pulm: Nonlabored respirations on high flow, 80% FiO2 ABD: Soft, mild epigastric/periumbilical tenderness (chronic), nondistended Integumentary: No rashes Neuro: Normal speech, normal affect Problem List Acute hypoxemic respiratory failure secondary to COVID-19 pneumonia Metastatic lung cancer, (to brain) Diabetes mellitus type 2, insulin-dependent HTN CAD Chronic pain Steroids increased to higher doses/Solu-Medrol and started baricitinib on 07/18 due to worsening of symptoms and inflammatory markers Inflammatory markers improving, symptoms improving, but still requiring high levels of oxygen supplementation Pulmonology consulted, suspect leukocytosis secondary to steroids Continue vitamin supplementation Titrate insulin/Lantus for better glucose control Patient with high risk for thromboembolism given history of metastatic cancer. DVT prophylaxis with Eliquis 2.5 mg twice daily. Diet as tolerated. SSIS SSRS DEVELOPER reviewed, patient's morphine restarted on admission Ativan for anxiety, seems to be helping with his respirations and heart rate Dispo: Anticipate hospitalization > 2 days Guarded prognosis, over the weekend patient's code status was changed to DNR Time Spent Managing Pts Care (In Minutes): 35
[2021-07-23 06:57] LABS: Absolute Lymphocytes (CBC) 0.8 K/uL (0.7-4.9); Hematocrit 32.5 % (39.6-49.0); Lymphocytes % 3.6 % (15.3-44.8); MPV 6.7 fL (7.6-11.3); RBC Red Blood Cell Count 3.58 M/uL (4.33-5.43)
[2021-07-23 07:07] LABS: ALT/SGPT 25 U/L (12-78); AST/SGOT 18 U/L (15-37); Albumin 1.9 g/dL (3.4-5.0); Alkaline Phosphatase 100 U/L (45-117); BUN Blood Urea Nitrogen 13 mg/dL (7-18); Bicarbonate 28 mmol/L (21-32); Glucose Level 133 mg/dL (74-106); Sodium Level 138 mmol/L (136-145)
[2021-07-23] MEDS: INSULIN -REGULAR HUMAN 50 UNIT/0.5 ML ML SQ SCH ×4 (07:30→21:00)
--- NOTE | 2021-07-23 07:47 | RAD REPORT ---
EXAM DESCRIPTION: RAD - Chest Single View - 07/23/2021 5:27 am CLINICAL HISTORY: increasing WBC count, worsening hypoxia COMPARISON: July 20 TECHNIQUE: AP portable chest image was obtained 07/23/2021 5:27 am . FINDINGS: Left greater than right bilateral lung base airspace opacification again noted. Pattern is stable. Heart size is stable with no change to the central vasculature. No pneumothorax or enlarging pleural effusion. No acute bony abnormality seen. No acute aortic findings suspected. IMPRESSION: Stable chest examination since July 20 imaging.
[2021-07-23] MEDS: INSULIN GLARGINE 100 UNIT/ML SQ SCH ×2 (09:00→22:41)
[2021-07-23] MEDS: METHYLPREDNISOLONE 125 MG INJ IV SCH ×2 (09:06→22:39)
[2021-07-23] MEDS: MORPHINE 15 MG IR TAB PO PRN (09:07)
[2021-07-23] MEDS: ASPIRIN 81 MG CHEWABLE TABLET PO SCH (09:08)
[2021-07-23] MEDS: APIXABAN 2.5 MG TABLET PO SCH ×2 (09:08→22:40)
[2021-07-23] MEDS: FAMOTIDINE 20 MG TAB PO SCH ×2 (09:08→22:39)
[2021-07-23] MEDS: MEMANTINE HCL 10 MG TABLET PO SCH (09:08)
[2021-07-23] MEDS: GABAPENTIN 300 MG CAP PO SCH ×3 (09:08→22:40)
[2021-07-23] MEDS: levETIRAcetam 500 MG TAB PO SCH ×2 (09:08→22:39)
[2021-07-23] MEDS: BENZONATATE 100 MG CAP PO PRN (09:08)
[2021-07-23] MEDS: BARICITINIB 2 MG TABLET PO SCH (09:10)
[2021-07-23] MEDS: GLUCERNA SHAKE 237 ML CAN PO SCH (21:00)
[2021-07-23] MEDS: ATORVASTATIN 40 MG TAB PO SCH (22:39)
[2021-07-23] MEDS: TAMSULOSIN 0.4 MG SR CAP PO SCH (22:40)
[2021-07-24 04:09] LABS: Absolute Lymphocytes (CBC) 0.3 K/uL (0.7-4.9); Hematocrit 33.4 % (39.6-49.0); Lymphocytes % 1.6 % (15.3-44.8); MPV 7.1 fL (7.6-11.3); RBC Red Blood Cell Count 3.65 M/uL (4.33-5.43)
[2021-07-24 04:25] LABS: ALT/SGPT 26 U/L (12-78); AST/SGOT 22 U/L (15-37); Albumin 1.8 g/dL (3.4-5.0); Alkaline Phosphatase 101 U/L (45-117); BUN Blood Urea Nitrogen 13 mg/dL (7-18); Bicarbonate 28 mmol/L (21-32); Bilirubin Total 1.1 mg/dL (0.2-1.0); C-Reactive Protein 9.12 mg/L (<3.00); Glucose Level 173 mg/dL (74-106); Potassium 4.7 mmol/L (3.5-5.1); Protein, Total 5.7 g/dL (6.4-8.2); Sodium Level 137 mmol/L (136-145)
[2021-07-24] MEDS: MORPHINE 15 MG IR TAB PO PRN ×2 (04:42→12:44)
[2021-07-24] MEDS: levETIRAcetam 500 MG TAB PO SCH ×2 (08:46→21:47)
[2021-07-24] MEDS: APIXABAN 2.5 MG TABLET PO SCH ×2 (08:46→21:46)
[2021-07-24] MEDS: METHYLPREDNISOLONE 125 MG INJ IV SCH ×2 (08:46→21:51)
[2021-07-24] MEDS: ASPIRIN 81 MG CHEWABLE TABLET PO SCH (08:46)
[2021-07-24] MEDS: MEMANTINE HCL 10 MG TABLET PO SCH (08:46)
[2021-07-24] MEDS: GABAPENTIN 300 MG CAP PO SCH ×3 (08:46→21:46)
[2021-07-24] MEDS: FAMOTIDINE 20 MG TAB PO SCH ×2 (08:46→21:46)
[2021-07-24] MEDS: INSULIN GLARGINE 100 UNIT/ML SQ SCH ×2 (08:46→21:44)
[2021-07-24] MEDS: INSULIN -REGULAR HUMAN 50 UNIT/0.5 ML ML SQ SCH ×4 (08:47→21:45)
[2021-07-24] MEDS: GLUCERNA SHAKE 237 ML CAN PO SCH ×2 (08:49→21:00)
[2021-07-24] MEDS: BARICITINIB 2 MG TABLET PO SCH (08:49)
--- NOTE | 2021-07-24 12:30 | P.PN ---
Subjective Date of Service: 07/24/21 Chief Complaint: Coronavirus pneumonia Condition stable is more alert is eating and drinking oxygen requirements declining Review of Systems General: Weakness Respiratory: Shortness of Breath Physical Examination - Vital Signs Temperature: 98 F Blood Pressure: 137/72 Pulse: 62 Respirations: 18 Pulse Ox (%): 97 Assessment & Plan - Problems (Diagnosis) (1) Pneumonia due to COVID-19 virus Current Visit: Yes Status: Acute Plan: Patient's condition is stabilized he is eating and drinking alert cooperative oxygen requirements have declined slightly white count elevated patient is on Barcitinib and steroids he did have a right forehead lesion treated with Bactrim to be causing his elevated white count
--- NOTE | 2021-07-24 15:49 | CON ---
Date of Consultation: 07/24/2021 Brief Hpi: The patient is a 65-year-old gentleman with history of diabetes, metastatic brain cancer, discharged from the hospital recently after COVID pneumonia, who returns with shortness of breath an d progressive weakness. He was hypoxic, requiring oxygen supplementation and was admitted to the [facility] on 07/16/2021. Since his admission, it has been noted that he has purulent material draining f rom his scalp wound, which is approximately he states 3 to 4 weeks ago when he had a procedure perfor med in this area, but he is a poor historian. Allergies: TO LISINOPRIL, PENICILLIN. Home Medications: Include ProAir, aspirin, Lipitor, Voltaren, Pepcid, Diflucan, gabapentin, insulin, Keppra, Megace, morphine oral, , memantine, MiraLAX, fentanyl, Norvasc, Tessalon Perles, D ecadron, Mucinex, Levaquin. Past Medical History: Significant for hypertension, diabetes, coronary artery disease, metastatic br ain cancer, dementia. Past Surgical History: Right orchiectomy, debridement of right lower extremity and "brain surgery." Physical Examination: General: He is awake and alert. He is confused generally. HEENT: He has a lesion/wound on the right temporoparietal area of the scalp, which has an eschar ove r it. Palpation expresses purulent fluid. This is easily unroofed at this time. After unroofing th e area, he has minimal amounts of necrotic tissue in the area, which is flaking off. Cleansing of th e area shows the collection was predominantly due to the eschar over the top. Now this is unroofed, it appears cleaners, and there was no obvious drainable collections present at this point. Laboratory Data: He had a laboratory examination, which revealed a white blood cell count of 20, hem oglobin 10.6, hematocrit 33.4, platelet count was 402. Sodium 137, potassium 4.7, chloride 103, carb on dioxide 28, BUN 13, creatinine is 0.5, glucose 173. He continues to have oxygen requirements. He has a chest x-ray performed, which is officially read on 07/23 as stable chest exam, left greater th an right bilateral lung base airspace opacity noted and are stable. No pneumothorax, enlarging pleur al effusion. No aortic findings suspected. Assessment/plan: A 65-year-old male with multiple medical problems as described, who comes in with a right scalp wound. Daily wound care with cleansing of the area and packing with Santyl and Dakin solution 0.25% to be ch anged every day. The patient is not a good operative candidate due to significant oxygen requirement s and maintenance on anticoagulation as such. I have recommend daily wound care, which I feel would be adequate to get this wound stabilized and improved. Continue medical management, IV fluid and ant ibiotic coverage as well and medical management. I have explained the risks, benefits, and alternati ves of the above-stated plan. The patient agrees to proceed as indicated. CHERYL/CATINA Voice ID: [id number] Report ID: [id number]
--- NOTE | 2021-07-24 17:22 | P.PN ---
Subjective Date of Service: 07/24/21 Chief Complaint: Coronavirus pneumonia Patient reports feeling better today compared to yesterday. FiO2 weaned down to 70% today. Physical Examination - Vital Signs Temperature: 97.9 F Blood Pressure: 117/69 Pulse: 72 Respirations: 12 Pulse Ox (%): 99 Assessment And Plan - Current Problems (Diagnosis) (1) Pneumonia due to COVID-19 virus Current Visit: Yes Status: Acute (2) Acute respiratory failure with hypoxia Current Visit: Yes Status: Acute (3) Mass of right lung Current Visit: No Status: Acute (4) Brain cancer Current Visit: No Status: Chronic Qualifiers: Malignant neoplasm of brain location: unspecified location Qualified Code(s): C71.9 - Malignant neoplasm of brain, unspecified (5) Type 2 diabetes mellitus Onset Date: 11/19/17 Current Visit: No Status: Chronic Qualifiers: Diabetes mellitus 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 construction 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 insulin use: without jail use Diabetes mellitus complication status: without complication Qualified Code(s): E11.9 - Type 2 diabetes mellitus without complications - Plan Physical exam GEN: Alert, oriented, NAD HEENT: Normal conjunctiva, sclera anicteric CV: Regular rate and rhythm, no edema Pulm: Nonlabored respirations on high flow, 70% FiO2 ABD: Soft, nontender, nondistended Integumentary: No rashes Neuro: Normal speech, normal affect Problem List Acute hypoxemic respiratory failure secondary to COVID-19 pneumonia Metastatic lung cancer, (to brain) Diabetes mellitus type 2, insulin-dependent HTN CAD Chronic pain Continue IV steroid. Patient started on baricitinib. Patient with high risk for thromboembolism given history of metastatic cancer. DVT prophylaxis with Eliquis 2.5 mg twice daily. Pulmonary is following. Continue vitamins and zinc supplementation Titrate insulin/Lantus for better glucose control Diet as tolerated. Wean oxygen as tolerated. Continue to monitor inflammatory markers. Patient started on oral Bactrim for the scalp wound.
[2021-07-24] MEDS: TAMSULOSIN 0.4 MG SR CAP PO SCH (21:46)
[2021-07-24] MEDS: ATORVASTATIN 40 MG TAB PO SCH (21:46)
[2021-07-24] MEDS: SMZ./TMP. 800/160 MG TABLET PO SCH (21:47)
[2021-07-24] MEDS: BENZONATATE 100 MG CAP PO PRN (23:32)
[2021-07-25] MEDS: MORPHINE 15 MG IR TAB PO PRN ×2 (01:16→08:43)
[2021-07-25] MEDS: ACETAMINOPHEN 500 MG TAB PO PRN (01:21)
[2021-07-25 03:57] LABS: ALT/SGPT 32 U/L (12-78); AST/SGOT 17 U/L (15-37); Albumin 1.7 g/dL (3.4-5.0); Alkaline Phosphatase 105 U/L (45-117); BUN Blood Urea Nitrogen 10 mg/dL (7-18); Bicarbonate 26 mmol/L (21-32); Bilirubin Total 0.6 mg/dL (0.2-1.0); C-Reactive Protein 6.52 mg/L (<3.00); Glucose Level 273 mg/dL (74-106); Potassium 4.4 mmol/L (3.5-5.1); Protein, Total 5.3 g/dL (6.4-8.2); Sodium Level 136 mmol/L (136-145)
[2021-07-25] MEDS: GLUCERNA SHAKE 237 ML CAN PO SCH ×2 (09:00→21:00)
[2021-07-25] MEDS: INSULIN -REGULAR HUMAN 50 UNIT/0.5 ML ML SQ SCH ×5 (09:44→21:23)
[2021-07-25] MEDS: INSULIN GLARGINE 100 UNIT/ML SQ SCH ×2 (09:45→21:24)
[2021-07-25] MEDS: SMZ./TMP. 800/160 MG TABLET PO SCH ×2 (10:22→21:22)
[2021-07-25] MEDS: MEMANTINE HCL 10 MG TABLET PO SCH (10:24)
[2021-07-25] MEDS: FAMOTIDINE 20 MG TAB PO SCH ×2 (10:24→21:22)
[2021-07-25] MEDS: GABAPENTIN 300 MG CAP PO SCH ×3 (10:25→21:22)
[2021-07-25] MEDS: levETIRAcetam 500 MG TAB PO SCH ×2 (10:25→21:22)
[2021-07-25] MEDS: SODIUM HYPOCHLORITE 0.25% 473 ML TOP SCH (10:25)
[2021-07-25] MEDS: ASPIRIN 81 MG CHEWABLE TABLET PO SCH (10:25)
[2021-07-25] MEDS: METHYLPREDNISOLONE 125 MG INJ IV SCH ×2 (10:26→21:24)
[2021-07-25] MEDS: APIXABAN 2.5 MG TABLET PO SCH ×2 (10:26→21:22)
[2021-07-25] MEDS: COLLAGENASE 30 GM OINTMENT TOP SCH (10:27)
[2021-07-25] MEDS: BARICITINIB 2 MG TABLET PO SCH (11:51)
--- NOTE | 2021-07-25 13:26 | P.PN ---
Subjective Date of Service: 07/25/21 Chief Complaint: Coronavirus pneumonia Patient's oxygen requirement is decreasing. He is now tolerating 55% FiO2 and 25 L/min flow. Physical Examination - Vital Signs Temperature: 99.1 F Blood Pressure: 131/72 Pulse: 88 Respirations: 16 Pulse Ox (%): 90 Assessment And Plan - Current Problems (Diagnosis) (1) Pneumonia due to COVID-19 virus Current Visit: Yes Status: Acute (2) Acute respiratory failure with hypoxia Current Visit: Yes Status: Acute (3) Mass of right lung Current Visit: No Status: Acute (4) Brain cancer Current Visit: No Status: Chronic Qualifiers: Malignant neoplasm of brain location: unspecified location Qualified Code(s): C71.9 - Malignant neoplasm of brain, unspecified (5) Type 2 diabetes mellitus Onset Date: 11/19/17 Current Visit: No Status: Chronic Qualifiers: Diabetes mellitus terminal clerk insulin use: without terminal clerk use Diabetes mellitus complication status: without complication Qualified Code(s): E11.9 - Type 2 diabetes mellitus without complications - Plan Physical exam GEN: Alert, oriented x 2, NAD HEENT: Anicteric sclera CV: Regular rate and rhythm, no edema Pulm: Nonlabored respirations on high flow, 55% FiO2 ABD: Soft, nontender, nondistended Integumentary: No rashes, right scalp lesion. Neuro: Normal speech, normal affect Problem List Acute hypoxemic respiratory failure secondary to COVID-19 pneumonia Metastatic lung cancer, (to brain) Diabetes mellitus type 2, insulin-dependent HTN CAD Chronic pain Continue IV steroid. Continue baricitinib. Patient with high risk for thromboembolism given history of metastatic cancer. DVT prophylaxis with Eliquis 2.5 mg twice daily. Pulmonary is following. Continue vitamins and zinc supplementation Titrate insulin/Lantus for better glucose control Diet as tolerated. Wean oxygen as tolerated. Continue to monitor inflammatory markers. Continue oral Bactrim for the scalp wound.
[2021-07-25] MEDS ORDERED: HALOPERIDOL LACT 5 MG/ML INJ IV PRN (13:43)
[2021-07-25] MEDS: TAMSULOSIN 0.4 MG SR CAP PO SCH (21:22)
[2021-07-25] MEDS: ATORVASTATIN 40 MG TAB PO SCH (21:22)
[2021-07-25] MEDS: BENZONATATE 100 MG CAP PO PRN (21:22)
[2021-07-26 03:58] LABS: Absolute Lymphocytes (CBC) 1.1 K/uL (0.7-4.9); Hematocrit 34.6 % (39.6-49.0); RBC Red Blood Cell Count 3.79 M/uL (4.33-5.43)
[2021-07-26 03:59] LABS: BUN Blood Urea Nitrogen 7 mg/dL (7-18); Bicarbonate 27 mmol/L (21-32); Glucose Level 79 mg/dL (74-106); Potassium 4.1 mmol/L (3.5-5.1); Sodium Level 138 mmol/L (136-145)
[2021-07-26 06:19] LABS: Blood Morphology Comment NOT SEEN (NOT SEEN); Platelet Estimate ADEQ
[2021-07-26] MEDS: INSULIN -REGULAR HUMAN 50 UNIT/0.5 ML ML SQ SCH ×4 (07:30→20:15)
[2021-07-26] MEDS: ASPIRIN 81 MG CHEWABLE TABLET PO SCH (08:07)
[2021-07-26] MEDS: levETIRAcetam 500 MG TAB PO SCH ×2 (08:07→20:14)
[2021-07-26] MEDS: METHYLPREDNISOLONE 125 MG INJ IV SCH (08:08)
[2021-07-26] MEDS: SMZ./TMP. 800/160 MG TABLET PO SCH ×2 (08:08→20:14)
[2021-07-26] MEDS: APIXABAN 2.5 MG TABLET PO SCH ×2 (08:08→20:14)
[2021-07-26] MEDS: FAMOTIDINE 20 MG TAB PO SCH ×2 (08:08→20:14)
[2021-07-26] MEDS: GABAPENTIN 300 MG CAP PO SCH ×3 (08:08→20:14)
[2021-07-26] MEDS: MEMANTINE HCL 10 MG TABLET PO SCH (08:08)
[2021-07-26] MEDS: BARICITINIB 2 MG TABLET PO SCH (08:09)
[2021-07-26] MEDS: GLUCERNA SHAKE 237 ML CAN PO SCH ×2 (08:10→19:10)
[2021-07-26] MEDS: COLLAGENASE 30 GM OINTMENT TOP SCH (08:19)
[2021-07-26] MEDS: SODIUM HYPOCHLORITE 0.25% 473 ML TOP SCH (08:19)
[2021-07-26] MEDS: MORPHINE 15 MG IR TAB PO PRN ×2 (09:17→18:28)
[2021-07-26] MEDS: INSULIN GLARGINE 100 UNIT/ML SQ SCH ×2 (11:51→20:12)
--- NOTE | 2021-07-26 12:26 | P.PN ---
Subjective Date of Service: 07/26/21 Chief Complaint: Coronavirus pneumonia Patient was confused and agitated yesterday. He is more calm today FiO2 and oxygen flow have trended down. Patient with good oral intake today. Physical Examination - Vital Signs Temperature: 98.7 F Blood Pressure: 113/64 Pulse: 112 Respirations: 18 Pulse Ox (%): 94 Assessment And Plan - Current Problems (Diagnosis) (1) Pneumonia due to COVID-19 virus Current Visit: Yes Status: Acute (2) Acute respiratory failure with hypoxia Current Visit: Yes Status: Acute (3) Mass of right lung Current Visit: No Status: Acute (4) Brain cancer Current Visit: No Status: Chronic Qualifiers: Malignant neoplasm of brain location: unspecified location Qualified Code(s): C71.9 - Malignant neoplasm of brain, unspecified (5) Type 2 diabetes mellitus Onset Date: 11/19/17 Current Visit: No Status: Chronic Qualifiers: Diabetes mellitus long term care administrator insulin use: without long term care administrator use Diabetes mellitus complication status: without complication Qualified Code(s): E11.9 - Type 2 diabetes mellitus without complications - Plan Physical exam GEN: Alert, oriented x 2, NAD HEENT: Anicteric sclera CV: Regular rate and rhythm, no edema Pulm: Nonlabored respirations on high flow, 50% FiO2 ABD: Soft, nontender, nondistended Integumentary: No rashes, right scalp lesion. Neuro: Normal speech. Problem List Acute hypoxemic respiratory failure secondary to COVID-19 pneumonia Metastatic lung cancer, (to brain) Diabetes mellitus type 2, insulin-dependent HTN CAD Chronic pain Continue IV steroid. Continue baricitinib. Continue Eliquis 2.5 mg twice daily for DVT prophylaxis. Pulmonary is following. Continue vitamins and zinc supplementation Titrate insulin/Lantus for better glucose control Diet as tolerated. Wean oxygen as tolerated. Anticipating transition to oxygen by nasal cannula soon. Continue to monitor inflammatory markers. Continue oral Bactrim for the scalp wound.
--- NOTE | 2021-07-26 12:32 | P.PN ---
Subjective Date of Service: 07/26/21 Chief Complaint: Coronavirus pneumonia Patient is improving he is more alert responsive today oxygen requirements have declined to 50% Review of Systems General: Weakness Respiratory: Shortness of Breath Physical Examination - Vital Signs Temperature: 98.7 F Blood Pressure: 113/64 Pulse: 112 Respirations: 18 Pulse Ox (%): 94 - Physical Exam General: Alert, Oriented x3 Respiratory: Clear to auscultation bilaterally, Diminished Assessment & Plan - Problems (Diagnosis) (1) Pneumonia due to COVID-19 virus Current Visit: Yes Status: Acute Plan: Respiratory failure from coronavirus is gradually improving oxygen requirements have declined to 50% is more alert responsive today reduce dose of Solu-Medrol continue to titrate sat down to 90%
[2021-07-26] MEDS: TAMSULOSIN 0.4 MG SR CAP PO SCH (20:14)
[2021-07-26] MEDS: ACETAMINOPHEN 500 MG TAB PO PRN (20:14)
[2021-07-26] MEDS: ATORVASTATIN 40 MG TAB PO SCH (20:14)
[2021-07-26] MEDS: BENZONATATE 100 MG CAP PO PRN (20:14)
[2021-07-26] MEDS: METHYLPREDNISOLONE 40 MG INJ IV SCH (20:16)
[2021-07-27] MEDS: MORPHINE 15 MG IR TAB PO PRN ×2 (06:35→21:11)
[2021-07-27] MEDS: INSULIN -REGULAR HUMAN 50 UNIT/0.5 ML ML SQ SCH ×4 (07:25→21:00)
[2021-07-27] MEDS: FAMOTIDINE 20 MG TAB PO SCH ×2 (07:25→21:32)
[2021-07-27] MEDS: ASPIRIN 81 MG CHEWABLE TABLET PO SCH (07:25)
[2021-07-27] MEDS: BARICITINIB 2 MG TABLET PO SCH (07:26)
[2021-07-27] MEDS: APIXABAN 2.5 MG TABLET PO SCH ×2 (07:26→21:33)
[2021-07-27] MEDS: MEMANTINE HCL 10 MG TABLET PO SCH (07:26)
[2021-07-27] MEDS: GABAPENTIN 300 MG CAP PO SCH ×3 (07:26→21:33)
[2021-07-27] MEDS: levETIRAcetam 500 MG TAB PO SCH ×2 (07:26→21:32)
[2021-07-27] MEDS: SMZ./TMP. 800/160 MG TABLET PO SCH ×2 (07:26→21:33)
[2021-07-27] MEDS: METHYLPREDNISOLONE 40 MG INJ IV SCH ×2 (07:27→21:32)
[2021-07-27] MEDS: GLUCERNA SHAKE 237 ML CAN PO SCH ×2 (07:27→21:00)
[2021-07-27] MEDS: SODIUM HYPOCHLORITE 0.25% 473 ML TOP SCH (08:43)
[2021-07-27] MEDS: COLLAGENASE 30 GM OINTMENT TOP SCH (08:43)
[2021-07-27] MEDS: INSULIN GLARGINE 100 UNIT/ML SQ SCH ×2 (08:53→21:33)
--- NOTE | 2021-07-27 12:03 | P.PN ---
Subjective Date of Service: 07/27/21 Chief Complaint: Coronavirus pneumonia Patient has been calm over the last couple of days. Oxygen requirement has decreased. Patient is now tolerating 15 L oxygen by nasal cannula. Physical Examination - Vital Signs Temperature: 97.6 F Blood Pressure: 129/72 Pulse: 92 Respirations: 20 Pulse Ox (%): 92 - Physical Exam General: Alert, In no apparent distress, Oriented x3 HEENT: Mucous membr. moist/pink Neck: JVD not distended Respiratory: Other (Nonlabored breathing) Cardiovascular: Regular rate/rhythm, Normal S1 S2 Gastrointestinal: Soft and benign, Non-distended Musculoskeletal: No swelling Neurological: Normal strength at 5/5 x4 extr Assessment And Plan - Current Problems (Diagnosis) (1) Pneumonia due to COVID-19 virus Current Visit: Yes Status: Acute (2) Acute respiratory failure with hypoxia Current Visit: Yes Status: Acute (3) Mass of right lung Current Visit: No Status: Acute (4) Brain cancer Current Visit: No Status: Chronic Qualifiers: Malignant neoplasm of brain location: unspecified location Qualified Code(s): C71.9 - Malignant neoplasm of brain, unspecified (5) Type 2 diabetes mellitus Onset Date: 11/19/17 Current Visit: No Status: Chronic Qualifiers: Diabetes mellitus long term care phlebotomist insulin use: without long term care phlebotomist use Diabetes mellitus complication status: without complication Qualified Code(s): E11.9 - Type 2 diabetes mellitus without complications - Plan Physical exam GEN: Alert, oriented x 2, NAD HEENT: Anicteric sclera CV: Regular rate and rhythm, no edema Pulm: Nonlabored respirations on high flow, 50% FiO2 ABD: Soft, nontender, nondistended Integumentary: No rashes, right scalp lesion. Neuro: Normal speech. Problem List Acute hypoxemic respiratory failure secondary to COVID-19 pneumonia Metastatic lung cancer, (to brain) Diabetes mellitus type 2, insulin-dependent HTN CAD Chronic pain Neuropsychiatric symptoms Continue IV steroid. Continue baricitinib. Continue Eliquis 2.5 mg twice daily for DVT prophylaxis. Pulmonary is following. Continue vitamins and zinc supplementation Titrate insulin/Lantus for better glucose control Diet as tolerated. Oxygen wean down to 15 L nasal cannula. Continue to wean oxygen as tolerated. Continue to monitor inflammatory markers. Continue oral Bactrim for the scalp wound. Neuropsychiatric symptoms likely secondary to metastatic brain cancer.
[2021-07-27] MEDS: TAMSULOSIN 0.4 MG SR CAP PO SCH (21:32)
[2021-07-27] MEDS: ATORVASTATIN 40 MG TAB PO SCH (21:33)
[2021-07-28 05:48] LABS: Absolute Lymphocytes (CBC) 0.5 K/uL (0.7-4.9); Hematocrit 31.7 % (39.6-49.0); Lymphocytes % 2.1 % (15.3-44.8); MPV 6.8 fL (7.6-11.3); RBC Red Blood Cell Count 3.44 M/uL (4.33-5.43)
[2021-07-28 05:59] LABS: BUN Blood Urea Nitrogen 13 mg/dL (7-18); Bicarbonate 30 mmol/L (21-32); Glucose Level 136 mg/dL (74-106); Potassium 4.7 mmol/L (3.5-5.1); Sodium Level 139 mmol/L (136-145)
[2021-07-28 06:54] LABS: Blood Morphology Comment NOT SEEN (NOT SEEN); Platelet Estimate ADEQ
[2021-07-28] MEDS: INSULIN -REGULAR HUMAN 50 UNIT/0.5 ML ML SQ SCH ×4 (07:30→21:10)
[2021-07-28] MEDS: METHYLPREDNISOLONE 40 MG INJ IV SCH (07:42)
[2021-07-28] MEDS: APIXABAN 2.5 MG TABLET PO SCH ×2 (07:44→21:08)
[2021-07-28] MEDS: MEMANTINE HCL 10 MG TABLET PO SCH (07:44)
[2021-07-28] MEDS: SMZ./TMP. 800/160 MG TABLET PO SCH ×2 (07:44→21:08)
[2021-07-28] MEDS: GABAPENTIN 300 MG CAP PO SCH ×3 (07:44→21:07)
[2021-07-28] MEDS: ASPIRIN 81 MG CHEWABLE TABLET PO SCH (07:44)
[2021-07-28] MEDS: FAMOTIDINE 20 MG TAB PO SCH ×2 (07:44→21:09)
[2021-07-28] MEDS: levETIRAcetam 500 MG TAB PO SCH ×2 (07:44→21:07)
[2021-07-28] MEDS: GLUCERNA SHAKE 237 ML CAN PO SCH ×2 (07:45→21:11)
[2021-07-28] MEDS: BARICITINIB 2 MG TABLET PO SCH (07:45)
[2021-07-28] MEDS: SODIUM HYPOCHLORITE 0.25% 473 ML TOP SCH (08:51)
[2021-07-28] MEDS: INSULIN GLARGINE 100 UNIT/ML SQ SCH ×2 (08:51→21:09)
[2021-07-28] MEDS: COLLAGENASE 30 GM OINTMENT TOP SCH (08:51)
--- NOTE | 2021-07-28 10:50 | P.PN ---
Subjective Date of Service: 07/28/21 Chief Complaint: Coronavirus pneumonia Patient is improving he is doing well oxygen requirements have declined to 6 L he subjectively feels fine Review of Systems General: Weakness Respiratory: Shortness of Breath Physical Examination - Vital Signs Temperature: 97.9 F Blood Pressure: 147/75 Pulse: 83 Respirations: 18 Pulse Ox (%): 94 - Physical Exam General: Alert, Oriented x2, Cooperative Assessment & Plan - Problems (Diagnosis) (1) Pneumonia due to COVID-19 virus Current Visit: Yes Status: Acute Plan: Respiratory failure patient is improving is down to 6 L continue to titrate down to a sat of 90% stable discharge in 1 to 2 days his white count remains a little elevated change to p.o. prednisone
--- NOTE | 2021-07-28 12:10 | P.PN ---
Subjective Date of Service: 07/28/21 Chief Complaint: Coronavirus pneumonia Patient's respiratory status is gradually improving. Patient now tolerating 6 L oxygen by nasal cannula. Oral intake has been good. Physical Examination - Vital Signs Temperature: 97.9 F Blood Pressure: 147/75 Pulse: 83 Respirations: 18 Pulse Ox (%): 94 Assessment And Plan - Current Problems (Diagnosis) (1) Pneumonia due to COVID-19 virus Current Visit: Yes Status: Acute (2) Acute respiratory failure with hypoxia Current Visit: Yes Status: Acute (3) Mass of right lung Current Visit: No Status: Acute (4) Brain cancer Current Visit: No Status: Chronic Qualifiers: Malignant neoplasm of brain location: unspecified location Qualified Code(s): C71.9 - Malignant neoplasm of brain, unspecified (5) Type 2 diabetes mellitus Onset Date: 11/19/17 Current Visit: No Status: Chronic Qualifiers: Diabetes mellitus 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 ABD: Soft, nontender, nondistended Integumentary: No rashes, right scalp lesion. Neuro: Normal speech. Problem List Acute hypoxemic respiratory failure secondary to COVID-19 pneumonia Metastatic lung cancer, (to brain) Diabetes mellitus type 2, insulin-dependent HTN CAD Chronic pain Neuropsychiatric symptoms Plan; Clinically improving. Continue IV steroid. Continue baricitinib. Continue Eliquis 2.5 mg twice daily for DVT prophylaxis. Pulmonary is following. Continue vitamins and zinc supplementation Titrate insulin/Lantus for better glucose control Diet as tolerated. Continue to wean oxygen as tolerated. Will discharge once patient is able to tolerate 4 L by nasal cannula Continue oral Bactrim for the scalp wound. Neuropsychiatric symptoms likely secondary to metastatic brain cancer-stable.
[2021-07-28] MEDS: TAMSULOSIN 0.4 MG SR CAP PO SCH (21:00)
[2021-07-28] MEDS: predniSONE 20 MG TAB PO SCH (21:08)
[2021-07-28] MEDS: ATORVASTATIN 40 MG TAB PO SCH (21:09)
[2021-07-28] MEDS: MORPHINE 15 MG IR TAB PO PRN (21:14)
[2021-07-29 06:50] LABS: Absolute Lymphocytes (CBC) 0.7 K/uL (0.7-4.9); Hematocrit 30.1 % (39.6-49.0); Lymphocytes % 2.5 % (15.3-44.8); MPV 7.4 fL (7.6-11.3); RBC Red Blood Cell Count 3.29 M/uL (4.33-5.43)
[2021-07-29] MEDS: BARICITINIB 2 MG TABLET PO SCH (07:26)
[2021-07-29] MEDS: ASPIRIN 81 MG CHEWABLE TABLET PO SCH (07:26)
[2021-07-29] MEDS: MEMANTINE HCL 10 MG TABLET PO SCH (07:26)
[2021-07-29] MEDS: SMZ./TMP. 800/160 MG TABLET PO SCH ×2 (07:26→19:36)
[2021-07-29] MEDS: FAMOTIDINE 20 MG TAB PO SCH ×2 (07:26→19:36)
[2021-07-29] MEDS: levETIRAcetam 500 MG TAB PO SCH ×2 (07:26→19:36)
[2021-07-29] MEDS: GABAPENTIN 300 MG CAP PO SCH ×3 (07:27→19:36)
[2021-07-29] MEDS: predniSONE 20 MG TAB PO SCH ×2 (07:27→19:41)
[2021-07-29] MEDS: APIXABAN 2.5 MG TABLET PO SCH ×2 (07:27→19:36)
[2021-07-29] MEDS: INSULIN -REGULAR HUMAN 50 UNIT/0.5 ML ML SQ SCH ×4 (07:28→19:37)
[2021-07-29] MEDS: GLUCERNA SHAKE 237 ML CAN PO SCH ×2 (07:28→21:00)
[2021-07-29] MEDS: COLLAGENASE 30 GM OINTMENT TOP SCH (08:21)
[2021-07-29] MEDS: SODIUM HYPOCHLORITE 0.25% 473 ML TOP SCH (08:21)
[2021-07-29 09:03] LABS: Anisocytosis SLIGHT; Blood Morphology Comment NOTED (NOT SEEN); Platelet Estimate ADEQ; Polychromasia SLIGHT
[2021-07-29] MEDS: INSULIN GLARGINE 100 UNIT/ML SQ SCH ×2 (09:23→19:38)
[2021-07-29 10:11] LABS: BUN Blood Urea Nitrogen 13 mg/dL (7-18); Bicarbonate 24 mmol/L (21-32); Glucose Level 92 mg/dL (74-106); Potassium 4.7 mmol/L (3.5-5.1); Sodium Level 139 mmol/L (136-145)
--- NOTE | 2021-07-29 11:23 | P.PN ---
Subjective Date of Service: 07/29/21 Chief Complaint: Coronavirus pneumonia Patient is clinically improving. SaO2 is greater than 95% on 6 L oxygen by nasal cannula. He has no new complain. Physical Examination - Vital Signs Temperature: 97.9 F Blood Pressure: 124/66 Pulse: 75 Respirations: 18 Pulse Ox (%): 97 Assessment And Plan - Current Problems (Diagnosis) (1) Pneumonia due to COVID-19 virus Current Visit: Yes Status: Acute (2) Acute respiratory failure with hypoxia Current Visit: Yes Status: Acute (3) Mass of right lung Current Visit: No Status: Acute (4) Brain cancer Current Visit: No Status: Chronic Qualifiers: Malignant neoplasm of brain location: unspecified location Qualified Code(s): C71.9 - Malignant neoplasm of brain, unspecified (5) Type 2 diabetes mellitus Onset Date: 11/19/17 Current Visit: No Status: Chronic Qualifiers: Diabetes mellitus extermination supervisor insulin use: without extermination supervisor use Diabetes mellitus complication status: without complication Qualified Code(s): E11.9 - Type 2 diabetes mellitus without complications - Plan Physical exam GEN: Alert, oriented x 2, HEENT: Anicteric sclera CV: Regular rate and rhythm, no edema Pulm: Nonlabored respiration. ABD: Soft, nontender, nondistended Integumentary: No rashes, right scalp lesion. Neuro: Normal speech. Problem List Acute hypoxemic respiratory failure secondary to COVID-19 pneumonia Metastatic lung cancer, (to brain) Diabetes mellitus type 2, insulin-dependent HTN CAD Chronic pain Neuropsychiatric symptoms Plan; Clinically improving. Continue IV steroid. Continue baricitinib. Continue Eliquis 2.5 mg twice daily for DVT prophylaxis. Pulmonary is following. Continue vitamins and zinc supplementation Continue insulin sliding scale and Lantus. Leukocytosis likely steroid-induced. Diet as tolerated. Continue to wean oxygen as tolerated. Arrange for home oxygen. Continue oral Bactrim for the scalp wound. Neuropsychiatric symptoms likely secondary to metastatic brain cancer-stable.
[2021-07-29] MEDS: ATORVASTATIN 40 MG TAB PO SCH (19:36)
[2021-07-29] MEDS: BENZONATATE 100 MG CAP PO PRN (19:36)
[2021-07-29] MEDS: TAMSULOSIN 0.4 MG SR CAP PO SCH (19:41)
[2021-07-30 04:34] LABS: Hematocrit 32.5 % (39.6-49.0); Lymphocytes % 4.1 % (15.3-44.8); MPV 7.1 fL (7.6-11.3); RBC Red Blood Cell Count 3.51 M/uL (4.33-5.43)
[2021-07-30 04:35] LABS: BUN Blood Urea Nitrogen 11 mg/dL (7-18); Bicarbonate 27 mmol/L (21-32); Glucose Level 50 mg/dL (74-106); Potassium 4.1 mmol/L (3.5-5.1); Sodium Level 137 mmol/L (136-145)
[2021-07-30] MEDS: INSULIN -REGULAR HUMAN 50 UNIT/0.5 ML ML SQ SCH ×4 (08:17→20:24)
[2021-07-30] MEDS: COLLAGENASE 30 GM OINTMENT TOP SCH (09:00)
[2021-07-30] MEDS: SMZ./TMP. 800/160 MG TABLET PO SCH ×2 (09:00→20:25)
[2021-07-30] MEDS: GLUCERNA SHAKE 237 ML CAN PO SCH ×2 (09:00→20:26)
[2021-07-30] MEDS: SODIUM HYPOCHLORITE 0.25% 473 ML TOP SCH (09:00)
[2021-07-30] MEDS: ASPIRIN 81 MG CHEWABLE TABLET PO SCH (09:15)
[2021-07-30] MEDS: levETIRAcetam 500 MG TAB PO SCH ×2 (09:15→20:25)
[2021-07-30] MEDS: FAMOTIDINE 20 MG TAB PO SCH ×2 (09:15→20:23)
[2021-07-30] MEDS: BARICITINIB 2 MG TABLET PO SCH (09:15)
[2021-07-30] MEDS: APIXABAN 2.5 MG TABLET PO SCH ×2 (09:16→20:23)
[2021-07-30] MEDS: GABAPENTIN 300 MG CAP PO SCH ×3 (09:16→20:23)
[2021-07-30] MEDS: predniSONE 20 MG TAB PO SCH (09:16)
[2021-07-30] MEDS: MEMANTINE HCL 10 MG TABLET PO SCH (09:16)
[2021-07-30] MEDS: INSULIN GLARGINE 100 UNIT/ML SQ SCH ×2 (09:17→20:26)
--- NOTE | 2021-07-30 12:47 | P.PN ---
Subjective Date of Service: 07/30/21 Chief Complaint: Coronavirus pneumonia Patient has no complaint. He appears to be in a good mood. He has tolerated room air with SPO2 around 90 to 91%. Physical Examination - Vital Signs Temperature: 98.0 F Blood Pressure: 124/63 Pulse: 100 Respirations: 18 Pulse Ox (%): 93 Assessment And Plan - Current Problems (Diagnosis) (1) Pneumonia due to COVID-19 virus Current Visit: Yes Status: Acute (2) Acute respiratory failure with hypoxia Current Visit: Yes Status: Acute (3) Mass of right lung Current Visit: No Status: Acute (4) Brain cancer Current Visit: No Status: Chronic Qualifiers: Malignant neoplasm of brain location: unspecified location Qualified Code(s): C71.9 - Malignant neoplasm of brain, unspecified (5) Type 2 diabetes mellitus Onset Date: 11/19/17 Current Visit: No Status: Chronic Qualifiers: Diabetes mellitus filler leaf cutter long insulin use: without filler leaf cutter long use Diabetes mellitus complication status: without complication Qualified Code(s): E11.9 - Type 2 diabetes mellitus without complications - Plan Physical exam GEN: Alert, oriented x 2, HEENT: Anicteric sclera CV: Regular rate and rhythm, no edema Pulm: Nonlabored respiration. ABD: Soft, nontender, nondistended Integumentary: No rashes, healing right scalp lesion. Neuro: Normal speech. Problem List Acute hypoxemic respiratory failure secondary to COVID-19 pneumonia Metastatic lung cancer, (to brain) Diabetes mellitus type 2, insulin-dependent HTN CAD Chronic pain Neuropsychiatric symptoms Plan; Clinically improved. IV steroids changed to p.o. Continue baricitinib. He will receive last dose tomorrow. Continue Eliquis 2.5 mg twice daily for DVT prophylaxis. Pulmonary is following. Continue vitamins and zinc supplementation Continue insulin sliding scale and Lantus. Leukocytosis likely steroid-induced. Diet as tolerated. Continue oral Bactrim for the scalp wound. Neuropsychiatric symptoms likely secondary to metastatic brain cancer-stable. Family request for home with hospice. Social service consulted for home hospice arrangement.
--- NOTE | 2021-07-30 17:55 | P.DS ---
Admission Date: 07/16/21 Discharge Date: 07/30/21 Disposition: HOSPICE-HOME Discharge Condition: FAIR Reason for Admission: Coronavirus pneumonia - Problems (1) Pneumonia due to COVID-19 virus Current Visit: Yes Status: Acute (2) Acute respiratory failure with hypoxia Current Visit: Yes Status: Acute (3) Mass of right lung Current Visit: No Status: Acute (4) Brain cancer Current Visit: No Status: Chronic Qualifiers: Malignant neoplasm of brain location: unspecified location Qualified Code(s): C71.9 - Malignant neoplasm of brain, unspecified (5) Type 2 diabetes mellitus Onset Date: 11/19/17 Current Visit: No Status: Chronic Qualifiers: 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 Patient noted to be hypoxic on room air and was requiring up to 4 L of oxygen by nasal cannula. CTA thorax demonstrated bilateral infiltrates similar to imaging done on 07/14. It also shows a right lung mass. Patient admitted for further management. Hospital Course: Problem List Acute hypoxemic respiratory failure secondary to COVID-19 pneumonia Metastatic lung cancer, (to brain) Diabetes mellitus type 2, insulin-dependent HTN CAD Chronic pain Neuropsychiatric symptoms Hospital course Patient admitted to the medical floor and treated with IV steroids per COVID protocol. Seen by pulmonary and also treated with baricitinib. Also placed on Eliquis 2.5 mg twice daily for DVT prophylaxis. Blood sugar managed with Lantus insulin and insulin sliding scale Patient developed leukocytosis likely steroid-induced. He was initially requiring high flow oxygen but patient was subsequently weaned off oxygen to room air. He tolerated diet. He was seen in consultation by general surgery-Dr. Andujar who recommended Bactrim and local wound care for the scalp wound. Patient developed neuropsychiatric symptoms likely secondary to metastatic brain cancer-stable. He is confused most of the time. Family request for home with hospice. Patient accepted to home with hospice. Vital Signs/Physical Exam: Temp Pulse Resp BP Pulse Ox 98.0 F 100 H 18 124/63 93 07/30/21 15:11 07/30/21 15:11 07/30/21 15:11 07/30/21 15:11 07/30/21 15:11 General: In no apparent distress, Confused HEENT: Mucous membr. moist/pink Neck: JVD not distended Respiratory: Other (Nonlabored breathing) Cardiovascular: Regular rate/rhythm, Normal S1 S2 Gastrointestinal: Soft and benign, Non-distended Musculoskeletal: No swelling, No tenderness Integumentary: No cyanosis Neurological: Other (No focal motor deficit) Laboratory Data at Discharge: WBC 23.70 K/uL (4.3-10.9) H* D 07/30/21 03:42 Hgb 10.2 g/dL (13.6-17.9) L 07/30/21 03:42 Hct 32.5 % (39.6-49.0) L 07/30/21 03:42 Plt Count 335 K/uL (152-406) 07/30/21 03:42 PT 12.2 SECONDS (9.5-12.5) 07/16/21 08:45 INR 1.06 07/16/21 08:45 Sodium 137 mmol/L (136-145) 07/30/21 03:42 Potassium 4.1 mmol/L (3.5-5.1) 07/30/21 03:42 BUN 11 mg/dL (7-18) 07/30/21 03:42 Creatinine 0.47 mg/dL (0.55-1.3) L 07/30/21 03:42 Glucose 50 mg/dL (74-106) L 07/30/21 03:42 Phosphorus 2.7 mg/dL (2.5-4.9) 07/22/21 05:53 Magnesium 2.3 mg/dL (1.8-2.4) 07/22/21 05:53 Total Bilirubin 0.6 mg/dL (0.2-1.0) 07/25/21 03:07 AST 17 U/L (15-37) 07/25/21 03:07 ALT 32 U/L (12-78) 07/25/21 03:07 Alkaline Phosphatase 105 U/L (45-117) 07/25/21 03:07 Triglycerides 119 mg/dL (<150) 07/17/21 03:48 Cholesterol 118 mg/dL (<200) 07/17/21 03:48 HDL Cholesterol 42 mg/dL (40-60) 07/17/21 03:48 Cholesterol/HDL Ratio 2.81 07/17/21 03:48 Home Medications: Albuterol Sulfate [Proair Hfa] 2 puff IH QID PRN 07/13/21 Aspirin 81 mg PO DAILY 07/13/21 Atorvastatin Calcium [Lipitor] 40 mg PO BEDTIME 07/13/21 Diclofenac Sodium [Voltaren Arthritis Pain] 20 gm TP TID PRN 07/13/21 Famotidine [Pepcid*] 20 mg PO BID 07/13/21 Fluconazole [Diflucan] 100 mg PO DAILY 07/13/21 Gabapentin 300 mg PO TID 07/13/21 Insulin Aspart [Novolog Flexpen] 4 unit SQ TID 07/13/21 Insulin Detemir [Levemir Flextouch] 15 unit SQ DAILY 07/13/21 Levetiracetam [Keppra] 500 mg PO BID 07/13/21 Memantine HCl 20 mg PO DAILY 07/13/21 Morphine Oral Syrup [Morphine Oral Syrup*] 10 mg PO Q4HP PRN 07/13/21 Nut.tx.gluc Intol,Lf,Soy/Fiber [Boost Glucose Control Liquid] 237 ml PO BID 07/13/21 Polyethylene Glycol 3350 [Miralax] 17 gm PO DAILY 07/13/21 fentaNYL [Fentanyl] 1 each TD Q72H 07/13/21 Dexamethasone [Decadron] 6 mg PO DAILY #5 tablet 07/15/21 Guaifenesin [Mucinex] 1,200 mg PO BID #20 tbmp.12hr 07/15/21 Benzonatate [Tessalon Perle*] 100 mg PO Q6H PRN #60 cap 07/30/21 Collagenase [Santyl Ointment*] 1 appl TOP DAILY #1 tube 07/30/21 Glucerna Shake [Glucerna*] 237 ml PO BID #60 can 07/30/21 Smz./Tmp. [Bactrim Ds 800 MG/160 MG*] 1 tab PO BID #10 tab 07/30/21 Tamsulosin [Flomax*] 0.4 mg PO BEDTIME #30 cap 07/30/21 New Medications: Smz./Tmp. [Bactrim Ds 800 MG/160 MG*] 1 tab PO BID #10 tab Tamsulosin [Flomax*] 0.4 mg PO BEDTIME #30 cap Glucerna Shake [Glucerna*] 237 ml PO BID #60 can Collagenase [Santyl Ointment*] 1 appl TOP DAILY #1 tube Benzonatate [Tessalon Perle*] 100 mg PO Q6H PRN #60 cap PRN Reason: Cough Diet: ADA Activity: Fall precautions Followup: NONE,NONE [Primary Care Provider] - Time spent managing pt's care (in minutes): 38
[2021-07-30] MEDS: ATORVASTATIN 40 MG TAB PO SCH (20:23)
[2021-07-30] MEDS: TAMSULOSIN 0.4 MG SR CAP PO SCH (20:25)
[2021-07-30] MEDS: BENZONATATE 100 MG CAP PO PRN (20:26)
[2021-07-30] MEDS: predniSONE 10 MG TAB PO SCH (20:26)
[2021-07-31] MEDS: GABAPENTIN 300 MG CAP PO SCH ×2 (01:55→08:04)
[2021-07-31 04:03] LABS: Absolute Lymphocytes (CBC) 0.7 K/uL (0.7-4.9); Hematocrit 31.1 % (39.6-49.0); Lymphocytes % 2.8 % (15.3-44.8); MPV 6.9 fL (7.6-11.3); RBC Red Blood Cell Count 3.37 M/uL (4.33-5.43)
[2021-07-31 04:22] LABS: BUN Blood Urea Nitrogen 12 mg/dL (7-18); Bicarbonate 25 mmol/L (21-32); Glucose Level 72 mg/dL (74-106); Potassium 4.3 mmol/L (3.5-5.1); Sodium Level 138 mmol/L (136-145)
--- NOTE | 2021-07-31 06:09 | P.DS ---
Admission Date: 07/16/21 Discharge Date: 07/31/21 Disposition: HOSPICE-HOME Discharge Condition: FAIR Reason for Admission: Coronavirus pneumonia Consultations: Pulmonology - Dr. Monreal General Surgery - Dr. Andujar Procedures: Problem List Acute hypoxemic respiratory failure secondary to COVID-19 pneumonia Metastatic lung cancer, (to brain) Diabetes mellitus type 2, insulin-dependent HTN CAD Chronic pain Neuropsychiatric symptoms Brief History of Present Illness: 65-year-old gentleman with a history of diabetes mellitus type 2, metastatic brain cancer, discharged from hospital yesterday after hospitalization for Covid pneumonia return to the emergency department with a complaint of progressive shortness of breath. Patient noted to be hypoxic on room air and was requiring up to 4 L of oxygen by nasal cannula. CTA thorax demonstrated bilateral infiltrates similar to imaging done on 07/14. It also shows a right lung mass. Patient admitted for further management. Hospital Course: Patient admitted to the medical floor and treated with IV steroids per COVID protocol. Seen by pulmonary and also treated with baricitinib. Also placed on Eliquis 2.5 mg twice daily for DVT prophylaxis. Blood sugar managed with Lantus insulin and insulin sliding scale Patient developed leukocytosis likely steroid-induced. He was initially requiring high flow oxygen but patient was subsequently weaned off oxygen to room air. He tolerated diet. He was seen in consultation by general surgery-Dr. Andujar who recommended Bactrim and local wound care for the scalp wound. Patient developed neuropsychiatric symptoms likely secondary to metastatic brain cancer-stable. He is confused most of the time. Family request for home with hospice. Patient accepted to home with hospice. Vital Signs/Physical Exam: Physical exam GEN: Alert, oriented, NAD HEENT: Normal conjunctiva, sclera anicteric CV: Regular rate and rhythm, no edema Pulm: Nonlabored respirations on 2L NC ABD: Soft, mild epigastric/periumbilical tenderness (chronic), nondistended Integumentary: No rashes Neuro: Normal speech, normal affect, +Dementia Temp Pulse Resp BP Pulse Ox 98.3 F 110 H 19 107/60 90 L 07/31/21 03:58 07/31/21 03:58 07/31/21 03:58 07/31/21 03:58 07/31/21 03:58 Laboratory Data at Discharge: WBC 24.30 K/uL (4.3-10.9) H* 07/31/21 03:43 Hgb 10.0 g/dL (13.6-17.9) L 07/31/21 03:43 Hct 31.1 % (39.6-49.0) L 07/31/21 03:43 Plt Count 299 K/uL (152-406) 07/31/21 03:43 PT 12.2 SECONDS (9.5-12.5) 07/16/21 08:45 INR 1.06 07/16/21 08:45 Sodium 138 mmol/L (136-145) 07/31/21 03:43 Potassium 4.3 mmol/L (3.5-5.1) 07/31/21 03:43 BUN 12 mg/dL (7-18) 07/31/21 03:43 Creatinine 0.48 mg/dL (0.55-1.3) L 07/31/21 03:43 Glucose 72 mg/dL (74-106) L 07/31/21 03:43 Phosphorus 2.7 mg/dL (2.5-4.9) 07/22/21 05:53 Magnesium 2.3 mg/dL (1.8-2.4) 07/22/21 05:53 Total Bilirubin 0.6 mg/dL (0.2-1.0) 07/25/21 03:07 AST 17 U/L (15-37) 07/25/21 03:07 ALT 32 U/L (12-78) 07/25/21 03:07 Alkaline Phosphatase 105 U/L (45-117) 07/25/21 03:07 Triglycerides 119 mg/dL (<150) 07/17/21 03:48 Cholesterol 118 mg/dL (<200) 07/17/21 03:48 HDL Cholesterol 42 mg/dL (40-60) 07/17/21 03:48 Cholesterol/HDL Ratio 2.81 07/17/21 03:48 Home Medications: Albuterol Sulfate [Proair Hfa] 2 puff IH QID PRN 07/13/21 Aspirin 81 mg PO DAILY 07/13/21 Atorvastatin Calcium [Lipitor] 40 mg PO BEDTIME 07/13/21 Diclofenac Sodium [Voltaren Arthritis Pain] 20 gm TP TID PRN 07/13/21 Famotidine [Pepcid*] 20 mg PO BID 07/13/21 Fluconazole [Diflucan] 100 mg PO DAILY 07/13/21 Gabapentin 300 mg PO TID 07/13/21 Insulin Aspart [Novolog Flexpen] 4 unit SQ TID 07/13/21 Insulin Detemir [Levemir Flextouch] 15 unit SQ DAILY 07/13/21 Levetiracetam [Keppra] 500 mg PO BID 07/13/21 Memantine HCl 20 mg PO DAILY 07/13/21 Morphine Oral Syrup [Morphine Oral Syrup*] 10 mg PO Q4HP PRN 07/13/21 Nut.tx.gluc Intol,Lf,Soy/Fiber [Boost Glucose Control Liquid] 237 ml PO BID 07/13/21 Polyethylene Glycol 3350 [Miralax] 17 gm PO DAILY 07/13/21 fentaNYL [Fentanyl] 1 each TD Q72H 07/13/21 Dexamethasone [Decadron] 6 mg PO DAILY #5 tablet 07/15/21 Guaifenesin [Mucinex] 1,200 mg PO BID #20 tbmp.12hr 07/15/21 Benzonatate [Tessalon Perle*] 100 mg PO Q6H PRN #60 cap 07/30/21 Collagenase [Santyl Ointment*] 1 appl TOP DAILY #1 tube 07/30/21 Glucerna Shake [Glucerna*] 237 ml PO BID #60 can 07/30/21 Smz./Tmp. [Bactrim Ds 800 MG/160 MG*] 1 tab PO BID #10 tab 07/30/21 Tamsulosin [Flomax*] 0.4 mg PO BEDTIME #30 cap 07/30/21 New Medications: Smz./Tmp. [Bactrim Ds 800 MG/160 MG*] 1 tab PO BID #10 tab Tamsulosin [Flomax*] 0.4 mg PO BEDTIME #30 cap Glucerna Shake [Glucerna*] 237 ml PO BID #60 can Collagenase [Santyl Ointment*] 1 appl TOP DAILY #1 tube Benzonatate [Tessalon Perle*] 100 mg PO Q6H PRN #60 cap PRN Reason: Cough Physician Discharge Instructions: PROBLEM: COVID pneumonia, Lung mass GOAL: Clear understanding of disease process E-scripts sent to [facility] in [place]. INSTRUCTIONS: - Discharge home on hospice. - Follow up with your primary care provider in 1-2 days. - Call the 4th floor at if you have any questions regarding your hospital stay. Diet: 1800 calorie diabetic diet Activity: Fall precautions [facility] Services Needed: Hospice Name of Company: [facility] Hospice Date or Referral: 07/30/2021 IMMUNIZATION Influenza Vaccine Indicated: Influenza Vaccine Given: Date Given: Pneumonia Vaccine Indicated: Pneumonia Vaccine Given: Date Given: Diet: ADA Activity: Fall precautions Followup: NONE,NONE [Primary Care Provider] - Time spent managing pt's care (in minutes): 45
[2021-07-31] MEDS: INSULIN -REGULAR HUMAN 50 UNIT/0.5 ML ML SQ SCH ×2 (07:30→13:22)
[2021-07-31] MEDS: BARICITINIB 2 MG TABLET PO SCH (08:03)
[2021-07-31] MEDS: MEMANTINE HCL 10 MG TABLET PO SCH (08:04)
[2021-07-31] MEDS: APIXABAN 2.5 MG TABLET PO SCH (08:04)
[2021-07-31] MEDS: SMZ./TMP. 800/160 MG TABLET PO SCH (08:04)
[2021-07-31] MEDS: ASPIRIN 81 MG CHEWABLE TABLET PO SCH (08:04)
[2021-07-31] MEDS: FAMOTIDINE 20 MG TAB PO SCH (08:04)
[2021-07-31] MEDS: levETIRAcetam 500 MG TAB PO SCH (08:04)
[2021-07-31] MEDS: predniSONE 10 MG TAB PO SCH (08:04)
[2021-07-31] MEDS: COLLAGENASE 30 GM OINTMENT TOP SCH (08:04)
[2021-07-31] MEDS: SODIUM HYPOCHLORITE 0.25% 473 ML TOP SCH (08:05)
[2021-07-31] MEDS: GLUCERNA SHAKE 237 ML CAN PO SCH (08:05)
[2021-07-31] MEDS ORDERED: INSULIN GLARGINE 100 UNIT/ML SQ SCH (09:00)
[2021-07-31 09:17] VITALS: O2SAT 86
[2021-07-31 12:17] VITALS: BP 105/55; TEMP 98.6
== END 2021-07-31 14:42 | disposition hospice, home (50) | DRG 177 ==
LOC: ER 07:32 → ERHOLD 12:05 → 3RD-ICU 15:56 → 4TH 19:40 → 2ND 07-22 18:14 → 4TH 07-24 20:38
PROVIDERS: ADMIT Internal Medicine; ATTEND Hospitalist
PROC: 5A09557 Assistance with Respiratory Ventilation, Greater than 96 Consecutive Hours, Continuous Positive Airway Pressure (ICD-10-PCS; principal; 2021-07-16)
PROC: XW0DXM6 Introduction of Baricitinib into Mouth and Pharynx, External Approach, New Technology Group 6 (ICD-10-PCS; 2021-07-18)
DX: U07.1 COVID-19 (principal); J12.82 Pneumonia due to coronavirus disease 2019; J96.01 Acute respiratory failure with hypoxia; C34.90 Malignant neoplasm of unspecified part of unspecified bronchus or lung; C79.31 Secondary malignant neoplasm of brain; I10 Essential (primary) hypertension; E11.9 Type 2 diabetes mellitus without complications; G89.29 Other chronic pain; I25.10 Atherosclerotic heart disease of native coronary artery without angina pectoris; D72.829 Elevated white blood cell count, unspecified; E87.6 Hypokalemia; R00.0 Tachycardia, unspecified; Z66 Do not resuscitate; Z88.0 Allergy status to penicillin; Z88.8 Allergy status to other drugs, medicaments and biological substances; Z79.899 Other long term (current) drug therapy; Z79.82 Long term (current) use of aspirin; Z79.4 Long term (current) use of insulin
CPT/HCPCS: 36415; 71045; 71275; 74177; 80048; 80053; 80061; 80076; 81003; 81015; 82728; 82805; 82947; 83605; 83735; 83880; 84100; 84132; 84145; 84484; 85025; 85379; 85610; 86140; 87040; 87086; 87088; 87205; 93005; 94002; 94003; 94760; 97110; 97116; 97161; 97530; 99284; J1100; J1630; J2270; J2405; J2920; J2930; J3590; J7040; J7512; Q9967